=== PATIENT | male | born 1970 | race Caucasian/White ===

== ENCOUNTER → 2016-12-23 | Outpatient (CLI) | payer MEDICARE, MEDICAID ==
--- NOTE | 2016-12-23 19:07 | Diagnostic Imaging Report ---
PA view of the chest. INDICATION: Preoperative evaluation for dental surgery. FINDINGS: The lungs demonstrate mild interstitial thickening. No prior studies are available to evaluate for chronicity. The heart size is borderline. There is no effusion or pneumothorax. The mediastinum and mary appear unremarkable. IMPRESSION: 1. Borderline cardiac size. 2. Mild interstitial prominence which could be chronic. No prior studies are available for comparison. In the appropriate clinical setting, mild atypical pneumonia or minimal vascular congestion could be considered. Dictated by: Dictated on workstation # [id number]
== END ==
LOC: CARD 12:20
PROVIDERS: ATTEND Dentist
DX: Z01.810 Encounter for preprocedural cardiovascular examination (principal); Z01.811 Encounter for preprocedural respiratory examination
CPT/HCPCS: 71010; 93005

== ENCOUNTER → 2017-04-08 | Outpatient (CLI) | payer MEDICARE, MEDICAID ==
[2017-04-08 12:45] LABS: BASOPHILS # (AUTO) 0.1 10^3/uL (0.0-0.1); BASOPHILS % (AUTO) 1 % (0-10); EOSINOPHILS # (AUTO) 0.7 10^3/uL (0.0-0.3); EOSINOPHILS % (AUTO) 9 % (0-10); LYMPHOCYTES # (AUTO) 1.5 X 10^3 (1.0-4.0); LYMPHOCYTES % (AUTO) 21 % (12-44); MEAN CORPUSCULAR HEMOGLOBIN 30 PG (25-34); MEAN CORPUSCULAR HGB CONC 34 G/DL (32-36); MEAN CORPUSCULAR VOLUME 89 FL (80-99); MEAN PLATELET VOLUME 9.5 FL (7.4-10.4); MONOCYTES # (AUTO) 0.7 X 10^3 (0.0-1.0); MONOCYTES % (AUTO) 10 % (0-12); NEUTROPHILS # (AUTO) 4.3 X 10^3 (1.8-7.8); NEUTROPHILS % (AUTO) 60 % (42-75); PLATELET COUNT 154 10^3/uL (130-400); RED BLOOD COUNT 4.69 10^6/uL (4.35-5.85); RED CELL DISTRIBUTION WIDTH 12.8 % (10.0-14.5); WHITE BLOOD COUNT 7.2 10^3/uL (4.3-11.0)
--- NOTE | 2017-04-08 14:33 | Diagnostic Imaging Report ---
PA and lateral views of the chest. INDICATION: COPD. Cough. Wheezing. FINDINGS: There is mild left basilar opacity adjacent to the cardiac apex, probably related to pericardial fat pad or minimal atelectasis. The right lung is clear. The heart size is normal. No effusion or pneumothorax. The mediastinum and mary appear unremarkable. IMPRESSION: Question of minimal left basilar atelectasis. Dictated by: Dictated on workstation # [id number]
== END ==
LOC: RAD 12:05
PROVIDERS: ATTEND Nurse Practitioner Family
DX: J44.9 Chronic obstructive pulmonary disease, unspecified (principal)
CPT/HCPCS: 36415; 71020; 85025

== ENCOUNTER → 2017-04-20 | Outpatient (CLI) | payer MEDICARE, MEDICAID ==
--- NOTE | 2017-04-20 19:37 | Diagnostic Imaging Report ---
PA and lateral views of the chest. INDICATION: Dyspnea. Cough. FINDINGS: The lungs are clear. The heart size is normal. No effusion or pneumothorax. Mediastinum and mary appear unremarkable. IMPRESSION: Unremarkable exam. Dictated by: Dictated on workstation # [id number]
== END ==
LOC: RAD 14:47
PROVIDERS: ATTEND Internal Medicine Critical Care Medicine
DX: R06.00 Dyspnea, unspecified (principal); R05 Cough
CPT/HCPCS: 71020

== ENCOUNTER 2017-05-28 10:14 | Emergency (ER) | payer MEDICARE, MEDICAID ==
[~2017-05-28] VITALS: Ht 157.5 cm; Wt 90.7 kg
[2017-05-28] MEDS ORDERED: RT-ALBUTEROL/IPRATROPIUM 3 ML (DUONEB) VIAL INH ONE (10:45)
--- NOTE | 2017-05-28 11:01 | Diagnostic Imaging Report ---
INDICATION: Cough and congestion COMPARISON: 04/20/2017 FINDINGS: Frontal and lateral views of the chest demonstrate normal heart size and pulmonary vascularity. The lungs are clear. There are no signs of infiltrate, pleural effusions or pneumothoraces. The visualized osseous structures show no acute abnormalities. IMPRESSION: 1. No acute process. No signs of infiltrates, effusions or pneumothoraces. Dictated by: Dictated on workstation # [id number]
--- NOTE | 2017-05-28 11:35 | ED Cough/URI ---
General Chief Complaint: Respiratory Problems Stated Complaint: SOA,COUGH Nursing Triage Note: PT CO OF SOA, PT SPECIAL NEEDS, PT HAS AUDIBLE WHEEZING NOTED [employer]IT[employer] POLISHER DENIES FEVER History of Present Illness Time seen by provider: 11:30 Initial Comments 46 year old male patient, SOA. No fevers reported. Timing/Duration: this morning Severity/Quality: mild, dry cough Prior Episodes/Possible Cause: occasional episodes Modifying Factors: Improves With Albuterol Inhaler, Improves With Albuterol Nebulizer, Improves With Rest Associated Symptoms: cough, shortness of breath Allergies and Home Medications Allergies Uncoded Allergies: TAPE (Allergy, Unknown, 05/18/16) Home Medications Azithromycin 250 Mg Tablet, 250 MG PO UD, #6 TAKE 2 TABLETS TODAY, THEN TAKE 1 TABLET DAILY FOR 4 MORE DAYS Prescribed by: ANGEL PRETTY on 05/28/17 1144 Constitutional: no symptoms reported, chills Respiratory: see HPI, cough, short of breath, wheezing All Other Systems Reviewed Negative Unless Noted: Yes Past Tnrgoco-Qzvree-Shfwhn Hx Patient Social History Alcohol Use: Denies Use Recreational Drug Use: No Smoking Status: Never a Smoker Recent Foreign Travel: No Contact w/Someone Who Travel: No Recent Infectious Disease Expo: No Recent Hopitalizations: No Physical Abuse: No Sexual Abuse: No Seasonal Allergies Seasonal Allergies: Yes Surgeries History of Surgeries: No Respiratory History of Respiratory Disorde: Yes Respiratory Disorders: Asthma Cardiovascular History of Cardiac Disorders: No Neurological History of Neurological Disord: Yes (EPILEPSY, NEUROLOGICAL IMPAIRMENT, OBSTRUCTIVE HYDROCEPHALUS) Neurological Disorders: Developmental Disorder, Seizure Disorder Gastrointestinal History of Gastrointestinal Di: No Musculoskeletal History of Musculoskeletal Dis: No Endocrine History of Endocrine Disorders: No Psychosocial History of Psychiatric Problem: Yes Behavioral Health Disorders: Anxiety Suicide Risk Score: 0 Reviewed Nursing Assessment Reviewed/Agree w Nursing PMH: Yes Physical Exam Vital Signs Vital Sign - Last 12Hours 05/28/17 05/28/17 10:25 11:00 Temp 98.2 Pulse 106 Resp 20 B/P (MAP) 129/86 (100) Pulse Ox 90 O2 Delivery Room Air Capillary Refill : Less Than 3 Seconds General Appearance: WD/WN, no apparent distress Eyes: Bilateral Eye Normal Inspection, Bilateral Eye PERRL, Bilateral Eye EOMI HEENT: PERRL/EOMI, normal ENT inspection, TMs normal, pharynx normal Neck: non-tender, full range of motion, supple, No lymphadenopathy (R), No lymphadenopathy (L) Respiratory: chest non-tender, normal breath sounds, wheezing Cardiovascular: normal peripheral pulses, regular rate, rhythm Gastrointestinal: normal bowel sounds, non tender, soft Neurologic/Psychiatric: no motor/sensory deficits, alert Skin: normal color, warm/dry Progress/Results/Core Measures Suspected Sepsis Recent Fever Within 48 Hours: No Infection Criteria Present: None New/Unexplained Altered Menta: No Sepsis Screen: No Definite Risk Sepsis Diagnosis: SIRS Temperature:98.2 Pulse: 106 Respiratory Rate: 20 Blood Pressure 129 /86 Mean: 100 Results/Orders Medications Given in ED Current Medications Medications Dose Ordered Sig/Flaquita Route Start Time Stop Time Status Last Admin Dose Admin Albuterol/ Ipratropium 3 ml ONCE ONCE INH 05/28/17 10:45 05/28/17 10:47 DC 05/28/17 10:59 3 ML Vital Signs/I&O Vital Sign - Last 12Hours 05/28/17 05/28/17 05/28/17 10:25 11:00 11:56 Temp 98.2 Pulse 106 93 Resp 20 18 B/P (MAP) 129/86 (100) Pulse Ox 90 94 94 O2 Delivery Room Air Capillary Refill : Less Than 3 Seconds Blood Pressure Mean: 100 Progress Note : Time: 11:30 Progress Note Patient reports less SOA after nebulized breathing treatment. Discharge planning reviewed with the patient and his roustabout hand, reviewed return precautions. Diagnostic Imaging Diagonstic Imaging: Xray Plain Films/CT/US/NM/MRI: chest Comments NAME: [facility] REC#: [id number] PT STATUS: REG ER : 1970 PHYSICIAN: FARNAZ PENA MD ADMIT DATE: 05/28/17/ER Draft Date of Exam:05/28/17 CHEST PA/LAT (2 VIEW) INDICATION: Cough and congestion COMPARISON: 04/20/2017 FINDINGS: Frontal and lateral views of the chest demonstrate normal heart size and pulmonary vascularity. The lungs are clear. There are no signs of infiltrate, pleural effusions or pneumothoraces. The visualized osseous structures show no acute abnormalities. IMPRESSION: 1. No acute process. No signs of infiltrates, effusions or pneumothoraces. Dictated on workstation # [id number] Dict: 05/28/17 1058 Trans: 05/28/[address] [place] [phone] Interpreted by: PASTORA RAHMAN MD Electronically signed by: Reviewed: Reviewed by Me Departure Impression Impression: Primary Impression: Asthma Qualified Codes: J45.998 - Other asthma Additional Impression: Upper respiratory infection with cough and congestion Disposition: 01 HOME, SELF-CARE Condition: Stable Departure-Patient Inst. Decision time for Depature: 11:40 Referrals: NICOLETTE NAPIER MD (PCP) Primary Care Physician ADAMA MAI (Family) Primary Care Physician Patient Instructions: Acute Bronchitis, Adult (DC), Asthma, Adult (DC), Cough, Adult (DC) Add. Discharge Instructions: Increase water intake. Continue taking prednisone per Dr. Kincaid and using your scheduled home medications. Use the nebulized albuterol every 4-6 hours. Take antibiotic as prescribed. Return to emergency department for fever greater than 101, increased difficulty breathing, new problems or concerns. All discharge instructions reviewed with patient and/or family. Voiced understanding. Scripts Azithromycin (Zithromax) 250 Mg Tablet 250 MG PO UD, #6 TAB TAKE 2 TABLETS TODAY, THEN TAKE 1 TABLET DAILY FOR 4 MORE DAYS Prov: ANGEL PRETTY 05/28/17 Copy Copies To 1: MICHAEL KINCAID DO; EMELI CONRAD MD, AMY ARNP May 28, 2017 11:35
[2017-05-28] MEDS ORDERED: AZIT250T PO (11:44)
[2017-05-28 11:56] VITALS: BP 136/92
== END 2017-05-28 11:55 | disposition home or self-care (01) ==
LOC: EDUNIT# 10:14 → ER 10:15
DX: J45.909 Unspecified asthma, uncomplicated (principal); J06.9 Acute upper respiratory infection, unspecified; G40.909 Epilepsy, unspecified, not intractable, without status epilepticus; F41.9 Anxiety disorder, unspecified
CPT/HCPCS: 71020; 94640; 99282

== ENCOUNTER → 2017-06-08 | Outpatient (CLI) | payer MEDICARE, MEDICAID ==
[~2017-06-08] MED LIST: AZIT250T PO
--- NOTE | 2017-06-08 15:32 | Diagnostic Imaging Report ---
INDICATION: DYSPNEA AND RESPIRATORY ABNORMALITIES, COUGH, ASTHMA. COMPARISON: 05/28/2017. FINDINGS: Frontal and lateral views of the chest demonstrate normal heart size and pulmonary vascularity. The lungs are clear. There are no signs of infiltrate, pleural effusions or pneumothoraces. The visualized osseous structures show no acute abnormalities. IMPRESSION: 1. No acute process. No signs of infiltrates, effusions or pneumothoraces. Dictated by: Dictated on workstation # [id number]
== END ==
LOC: RAD 14:34
PROVIDERS: ATTEND Nurse Practitioner Family
DX: J45.909 Unspecified asthma, uncomplicated (principal)
CPT/HCPCS: 71046

== ENCOUNTER 2017-09-15 21:03 | Emergency (ER) | payer MEDICARE, MEDICAID ==
[~2017-09-15] VITALS: Ht 152.4 cm; Wt 81.6 kg
[2017-09-15] MEDS ORDERED: PROMETHAZINE/ CODEINE SYRUP 5 ML UDC PO ONE (21:45)
[2017-09-15] MEDS ORDERED: RT-ALBUTEROL/IPRATROPIUM 3 ML (DUONEB) VIAL INH ONE (21:45)
--- NOTE | 2017-09-15 21:47 | ED Cough/URI ---
General Stated Complaint: COUGH;CHOKED ON FOOD Source: caregiver Exam Limitations: no limitations History of Present Illness Date Seen by Provider: Sep 15, 2017 Time Seen by Provider: 21:46 Initial Comments This mentally handicapped gentleman presents To ER by his caregiver with reports of a cough that became worse after eating this evening. Seems to have choked on some of his food. He's been wheezing since then and caregiver did give him a DuoNeb treatment. Timing/Duration: constant Severity/Quality: dry cough Associated Symptoms: cough, wheezing Allergies and Home Medications Allergies Uncoded Allergies: TAPE (Allergy, Unknown, 05/18/16) Home Medications Azithromycin 250 Mg Tablet, 250 MG PO UD TAKE 2 TABLETS TODAY, THEN TAKE 1 TABLET DAILY FOR 4 MORE DAYS Prescribed by: ANGEL PRETTY on 05/28/17 1144 Clindamycin HCl 300 Mg Capsule, 300 MG PO TID Prescribed by: MITCH STEVENS on 09/15/172208 Prednisone 20 Mg Tab, 40 MG PO DAILY Prescribed by: MITCH STEVENS on 09/15/172208 Patient Home Medication List Home Medication List Reviewed: Yes Review of Systems Constitutional: see HPI EENTM: see HPI Respiratory: see HPI, cough, short of breath, wheezing Cardiovascular: no symptoms reported Genitourinary: no symptoms reported Musculoskeletal: no symptoms reported Skin: no symptoms reported Psychiatric/Neurological: No Symptoms Reported Past Dfagmmx-Jgxkuv-Veltpq Hx Patient Social History Recent Foreign Travel: No Contact w/Someone Who Travel: No Recent Hopitalizations: No Seasonal Allergies Seasonal Allergies: Yes Past Medical History Surgeries: No Respiratory: Yes Asthma Cardiac: No Neurological: Yes (EPILEPSY, NEUROLOGICAL IMPAIRMENT, OBSTRUCTIVE HYDROCEPHALUS ) Developmental Disorder, Seizure Disorder Gastrointestinal: No Musculoskeletal: No Endocrine: No Psychosocial: Yes Anxiety Physical Exam Vital Signs Vital Signs - First Documented 09/15/17 22:05 Pulse Ox 94 O2 Delivery Room Air Capillary Refill : General Appearance: WD/WN, no apparent distress Eyes: Bilateral Eye Normal Inspection, Bilateral Eye PERRL, Bilateral Eye EOMI HEENT: PERRL/EOMI, normal ENT inspection Neck: non-tender, full range of motion Respiratory: no respiratory distress, no accessory muscle use, decreased breath sounds, wheezing, other (persistent cough noted) Cardiovascular: no murmur, tachycardia Neurologic/Psychiatric: alert, normal mood/affect, oriented x 3, other (oxygen saturation 93% on room air.) Skin: normal color, warm/dry Progress/Results/Core Measures Suspected Sepsis SIRS Temperature: Pulse: Respiratory Rate: Laboratory Tests 09/15/17 21:49: White Blood Count 9.0 Blood Pressure / Mean: Laboratory Tests 09/15/17 21:49: Platelet Count 183 Results/Orders Lab Results Laboratory Tests Test 09/15/17 21:49 Range/Units White Blood Count 9.0 4.3-11.0 10^3/uL Red Blood Count 5.02 4.35-5.85 10^6/uL Hemoglobin 15.3 13.3-17.7 G/DL Hematocrit 45 40-54 % Mean Corpuscular Volume 89 80-99 FL Mean Corpuscular Hemoglobin 31 25-34 PG Mean Corpuscular Hemoglobin Concent 34 32-36 G/DL Red Cell Distribution Width 13.3 10.0-14.5 % Platelet Count 183 130-400 10^3/uL Mean Platelet Volume 9.5 7.4-10.4 FL Neutrophils (%) (Auto) 85 H 42-75 % Lymphocytes (%) (Auto) 9 L 12-44 % Monocytes (%) (Auto) 6 0-12 % Eosinophils (%) (Auto) 0 0-10 % Basophils (%) (Auto) 0 0-10 % Neutrophils # (Auto) 7.6 1.8-7.8 X 10^3 Lymphocytes # (Auto) 0.8 L 1.0-4.0 X 10^3 Monocytes # (Auto) 0.6 0.0-1.0 X 10^3 Eosinophils # (Auto) 0.0 0.0-0.3 10^3/uL Basophils # (Auto) 0.0 0.0-0.1 10^3/uL My Orders Orders - MITCH STEVENS APRN Chest Pa/Lat (2 View) (09/15/17 21:45) Cbc With Automated Diff (09/15/17 21:45) Albuterol/Ipra Inhalation Soln (Duoneb I (09/15/17 21:45) Svn Sm Volume Nebulizer Rt-Rfs (09/15/17 21:45) Promethazine/ Codeine Syrup (Phenergan W (09/15/17 21:45) Saline Lock/Iv-Start (09/15/17 21:45) Clindamycin 900 Mg/50 Ml Ivpb (Cleocin P (09/15/17 22:15) Methylprednisolone Sod Succ (Solu-Medrol (09/15/17 22:30) Medications Given in ED Current Medications Medications Dose Ordered Sig/Flaquita Route Start Time Stop Time Status Last Admin Dose Admin Albuterol/ Ipratropium 3 ml ONCE ONCE INH 09/15/17 21:45 09/15/17 21:46 DC 09/15/17 22:03 3 ML Clindamycin Phosphate/Dextrose 50 ml @ 100 mls/hr ONCE ONCE IV 09/15/17 22:15 09/15/17 22:44 09/15/17 22:18 100 MLS/HR Promethazine HCl/ Codeine 5 ml ONCE ONCE PO 09/15/17 21:45 09/15/17 21:46 DC 09/15/17 22:18 5 ML Vital Signs/I&O 09/15/17 22:05 Pulse Ox 94 O2 Delivery Room Air Capillary Refill : Departure Impression Primary Impression: Aspiration into airway Additional Impression: Reactive airway disease Disposition: HOME, SELF-CARE Condition: Stable Departure-Patient Inst. Decision time for Depature: 22:06 Referrals: NICOLETTE NAPIER MD (PCP) Primary Care Physician ADAMA MAI (Family) Primary Care Physician Patient Instructions: NO INSTRUCTIONS GIVEN Add. Discharge Instructions: 1. Antibiotics as directed 2. Return to ER for worsening symptoms 3. Continue to use breathing treatments every 4 hours for the next 24 hours 4. Follow up with his doctor within 48 hours for recheck Scripts Prednisone (Prednisone) 20 Mg Tab 40 MG PO DAILY, #4 TAB Prov: MITCH STEVENS DAMPPROOFER 09/15/17 Clindamycin HCl (Clindamycin HCl) 300 Mg Capsule 300 MG PO TID, #9 CAP Prov: MITCH STEVENS DAMPPROOFER 09/15/17 MITCH STEVENS DAMPPROOFER Sep 15, 2017 21:47
[2017-09-15 21:56] LABS: BASOPHILS % (AUTO) 0 % (0-10); EOSINOPHILS % (AUTO) 0 % (0-10); HEMATOCRIT 45 % (40-54); HEMOGLOBIN 15.3 G/DL (13.3-17.7); LYMPHOCYTES # (AUTO) 0.8 X 10^3 (1.0-4.0); LYMPHOCYTES % (AUTO) 9 % (12-44); MEAN CORPUSCULAR HEMOGLOBIN 31 PG (25-34); MEAN CORPUSCULAR HGB CONC 34 G/DL (32-36); MEAN CORPUSCULAR VOLUME 89 FL (80-99); MEAN PLATELET VOLUME 9.5 FL (7.4-10.4); MONOCYTES # (AUTO) 0.6 X 10^3 (0.0-1.0); MONOCYTES % (AUTO) 6 % (0-12); NEUTROPHILS # (AUTO) 7.6 X 10^3 (1.8-7.8); NEUTROPHILS % (AUTO) 85 % (42-75); PLATELET COUNT 183 10^3/uL (130-400); RED BLOOD COUNT 5.02 10^6/uL (4.35-5.85); RED CELL DISTRIBUTION WIDTH 13.3 % (10.0-14.5)
[2017-09-15] MEDS ORDERED: PRD20T PO (22:09)
[2017-09-15] MEDS ORDERED: CLIN300C11 PO (22:09)
[2017-09-15] MEDS ORDERED: CLINDAMYCIN 900 MG/50 ML IVPB 50 ML IV ONE (22:15)
[2017-09-15] MEDS ORDERED: methylPREDNISolone 125 MG (Solu-MEDROL) VIAL IVP ONE (22:30)
[2017-09-15 22:53] VITALS: BP 138/91
--- NOTE | 2017-09-16 05:42 | Diagnostic Imaging Report ---
EXAM: CHEST PA/LAT (2 VIEW) INDICATION: Cough. Chest congestion. COMPARISON: Chest radiograph 06/08/2017. FINDINGS: Normal heart size and pulmonary vascularity. No focal pulmonary opacity, pleural effusion or pneumothorax. No acute osseous findings. No significant change. IMPRESSION: No acute cardiopulmonary findings. Dictated by: Dictated on workstation # [id number]
--- OUTSIDE RECORDS SUMMARY | 2017-09-16 12:16 | XMS REPORT | Clinical Summary ---
Author Author [facility] Organization [facility] Address Unknown Phone Unavailable Care Team Providers Care Cassandra Consultant Name Role Phone PCP Unavailable Source Comments Some departments are not documenting in the electronic medical record. If you do not see the information that you expected, contact Release of Information in the Health Information Management department at [phone] for further assistance in locating additional records.[facility] Allergies Active Allergy Reactions Severity Noted Date Comments Adhesive RASH Medium 08/13/2016 Current Medications Prescription Sig. Disp. Refills Start End Date Status Date ALBUTEROL IN Inhale by mouth into the Active lungs. DIPHENHYDRAMINE HCL Take by mouth. Active (BENADRYL ALLERGY PO) montelukast (SINGULAIR) 5 Chew 5 mg by mouth at Active mg chew tablet bedtime daily. phenytoin (DILANTIN) 125 Take 300 mg by mouth Active mg/5 mL oral suspension three times daily. potassium chloride SR Take 20 mEq by mouth Active (K-DUR) 20 mEq tablet daily. Take with a meal and a full glass of water. PREDNISOLONE PO Take by mouth. Active BUDESONIDE/FORMOTEROL Inhale by mouth into the Active FUMARATE (SYMBICORT IN) lungs. Tolnaftate 1 % spra Apply topically to Active affected area. ERGOCALCIFEROL (VITAMIN Take by mouth. Active D2) (VITAMIN D PO) Active Problems Problem Noted Date Nuclear sclerotic cataract of both eyes 08/13/2016 Last Assessment & Plan: Diminished red reflex on direct ophthalmoscopy. Examination limited by patient cooperation but care givers report good functionality, ambulation, eating, watching TV. Defer further evaluation pending functional impairment as observed by care givers. Then will require sedation for examination. 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
== END 2017-09-15 22:52 | disposition home or self-care (01) ==
LOC: EDUNIT# 21:03 → ER 21:04
DX: T17.820A Food in other parts of respiratory tract causing asphyxiation, initial encounter (principal); J45.909 Unspecified asthma, uncomplicated; R29.818 Other symptoms and signs involving the nervous system; G40.909 Epilepsy, unspecified, not intractable, without status epilepticus; F41.9 Anxiety disorder, unspecified; F89 Unspecified disorder of psychological development; Z91.048 Other nonmedicinal substance allergy status
CPT/HCPCS: 36415; 71046; 85025; 94640

== ENCOUNTER 2018-05-05 13:52 | Inpatient (IN) | payer MEDICARE, MEDICAID ==
[~2018-05-05] VITALS: Ht 154.9 cm; Wt 90.7 kg
[2018-05-05] VITALS (10 sets, daily range): BP systolic 72–111; BP diastolic 49–71
[~2018-05-05 13:52] MED LIST changes: +CLIN300C11 PO; +PRD20T PO
[2018-05-05] MEDS ORDERED: RT-ALBUTEROL/IPRATROPIUM 3 ML (DUONEB) VIAL INH ONE (14:15)
[2018-05-05] MEDS ORDERED: NS IV 1000 ML 1,000 ML IV SCH (14:15)
--- NOTE | 2018-05-05 14:16 | ED Cough/URI ---
General Stated Complaint: COUGH;WEAKNESS Source: patient Exam Limitations: no limitations History of Present Illness Date Seen by Provider: May 05, 2018 Time Seen by Provider: 14:15 Initial Comments To ER per private vehicle from [place] with reports of worsening cough for the past week. Primary care is Dr. Napier out of for Dmitri. Patient does have a fever today. Timing/Duration: week, getting worse Severity/Quality: productive cough Associated Symptoms: cough, fever/chills, shortness of breath Allergies and Home Medications Allergies Uncoded Allergies: TAPE (Allergy, Unknown, 05/18/16) Home Medications Azithromycin 250 Mg Tablet, 250 MG PO UD TAKE 2 TABLETS TODAY, THEN TAKE 1 TABLET DAILY FOR 4 MORE DAYS Prescribed by: ANGEL PRETTY on 05/28/17 1144 Clindamycin HCl 300 Mg Capsule, 300 MG PO TID Prescribed by: MITCH STEVENS on 09/15/172208 Prednisone 20 Mg Tab, 40 MG PO DAILY Prescribed by: MICTH STEVENS on 09/15/172208 Patient Home Medication List Home Medication List Reviewed: Yes Review of Systems Review of Systems Constitutional: see HPI, chills, fever EENTM: see HPI Respiratory: see HPI, cough Cardiovascular: no symptoms reported Genitourinary: no symptoms reported Musculoskeletal: no symptoms reported Skin: no symptoms reported Psychiatric/Neurological: No Symptoms Reported Past Xlboxji-Ebnpat-Trnzor Hx Patient Social History Recent Hopitalizations: No Seasonal Allergies Seasonal Allergies: Yes Past Medical History Surgeries: No Respiratory: Yes Asthma Cardiac: No Neurological: Yes (EPILEPSY, NEUROLOGICAL IMPAIRMENT, OBSTRUCTIVE HYDROCEPHALUS ) Developmental Disorder, Seizure Disorder Gastrointestinal: No Musculoskeletal: No Endocrine: No Psychosocial: Yes Anxiety Physical Exam Vital Signs - First Documented 05/05/18 05/05/18 14:07 14:27 Temp 103.0 Pulse 123 Resp 24 B/P (MAP) 124/71 (88) Pulse Ox 86 O2 Delivery Room Air O2 Flow Rate 3.50 Capillary Refill : Height: 5'2.00" Weight: 180lbs. oz. 81.333141kt; BMI Method:Estimated General Appearance: WD/WN, mild distress, other (on arrival, coughing persistently, wheezing, oxygen saturation 86% on room air.) Eyes: Bilateral Eye Normal Inspection, Bilateral Eye PERRL, Bilateral Eye EOMI HEENT: PERRL/EOMI, normal ENT inspection Respiratory: no respiratory distress, no accessory muscle use, decreased breath sounds, wheezing (But no vomiting right) Gastrointestinal: normal bowel sounds, non tender, soft Neurologic/Psychiatric: alert, normal mood/affect, oriented x 3 Skin: normal color, warm/dry Focused Exam Lactate Level 05/05/18 15:00: Lactic Acid Level 0.92 Lactic Acid Level Laboratory Tests Test 05/05/18 15:00 Lactic Acid Level 0.92 MMOL/L (0.50-2.00) Progress/Results/Core Measures Suspected Sepsis SIRS Temperature: Pulse: Respiratory Rate: Laboratory Tests 05/05/18 14:20: White Blood Count 12.7H Blood Pressure / Mean: 05/05/18 15:00: Lactic Acid Level 0.92 Laboratory Tests 05/05/18 14:20: Creatinine 0.81, Platelet Count 174, Total Bilirubin 0.3 Results/Orders Lab Results Laboratory Tests Test 05/05/18 14:20 05/05/18 15:00 Range/Units White Blood Count 12.7 H 4.3-11.0 10^3/uL Red Blood Count 4.70 4.35-5.85 10^6/uL Hemoglobin 14.1 13.3-17.7 G/DL Hematocrit 42 40-54 % Mean Corpuscular Volume 89 80-99 FL Mean Corpuscular Hemoglobin 30 25-34 PG Mean Corpuscular Hemoglobin Concent 34 32-36 G/DL Red Cell Distribution Width 13.1 10.0-14.5 % Platelet Count 174 130-400 10^3/uL Mean Platelet Volume 8.8 7.4-10.4 FL Neutrophils (%) (Auto) 92 H 42-75 % Lymphocytes (%) (Auto) 3 L 12-44 % Monocytes (%) (Auto) 4 0-12 % Eosinophils (%) (Auto) 1 0-10 % Basophils (%) (Auto) 0 0-10 % Neutrophils # (Auto) 11.7 H 1.8-7.8 X 10^3 Lymphocytes # (Auto) 0.3 L 1.0-4.0 X 10^3 Monocytes # (Auto) 0.6 0.0-1.0 X 10^3 Eosinophils # (Auto) 0.1 0.0-0.3 10^3/uL Basophils # (Auto) 0.0 0.0-0.1 10^3/uL Neutrophils % (Manual) 87 % Lymphocytes % (Manual) 5 % Monocytes % (Manual) 1 % Eosinophils % (Manual) 2 % Basophils % (Manual) 0 % Band Neutrophils 5 % Blood Morphology Comment NORMAL Sodium Level 138 135-145 MMOL/L Potassium Level 4.1 3.6-5.0 MMOL/L Chloride Level 102 98-107 MMOL/L Carbon Dioxide Level 25 21-32 MMOL/L Anion Gap 11 5-14 MMOL/L Blood Urea Nitrogen 15 7-18 MG/DL Creatinine 0.81 0.60-1.30 MG/DL Estimat Glomerular Filtration Rate > 60 BUN/Creatinine Ratio 19 Glucose Level 109 H 70-105 MG/DL Calcium Level 8.7 8.5-10.1 MG/DL Corrected Calcium 8.8 8.5-10.1 MG/DL Total Bilirubin 0.3 0.1-1.0 MG/DL Aspartate Amino Transf (AST/SGOT) 21 5-34 U/L Alanine Aminotransferase (ALT/SGPT) 32 0-55 U/L Alkaline Phosphatase 94 40-136 U/L Total Protein 7.2 6.4-8.2 GM/DL Albumin 3.9 3.2-4.5 GM/DL Lactic Acid Level 0.92 0.50-2.00 MMOL/L My Orders Orders - MICTH STEVENS [employer] PAPER MACHINE OPERATOR Cbc With Automated Diff (05/05/18 14:13) Comprehensive Metabolic Panel (05/05/18 14:13) Blood Culture (05/05/18 14:13) Lactic Acid Analyzer (05/05/18 14:13) Chest 1 View, Ap/Pa Only (05/05/18 14:13) Influenza A And B Antigens (05/05/18 14:13) Albuterol/Ipra Inhalation Soln (Duoneb I (05/05/18 14:15) Ns Iv 1000 Ml (Sodium Chloride 0.9%) (05/05/18 14:15) Svn Small Volume Nebulizer (05/05/18 14:13) Iv Heplock-Insert (Order) (05/05/18 14:13) Manual Differential (05/05/18 14:20) Lorazepam Injection (Ativan Injection) (05/05/18 14:41) Lorazepam Injection (Ativan Injection) (05/05/18 15:00) Acetaminophen Tablet (Tylenol Tablet) (05/05/18 15:45) Ibuprofen Tablet (Motrin Tablet) (05/05/18 15:45) Ibuprofen Suspension (Motrin Suspension) (05/05/18 16:00) Medications Given in ED Current Medications Medications Dose Ordered Sig/Flaquita Route Start Time Stop Time Status Last Admin Dose Admin Albuterol/ Ipratropium 3 ml ONCE ONCE INH 05/05/18 14:15 05/05/18 14:16 DC 05/05/18 14:27 3 ML Lorazepam 2 mg STK-MED ONCE .ROUTE 05/05/18 14:41 05/05/18 14:44 DC 05/05/18 14:47 0.5 MG Vital Signs/I&O 05/05/18 05/05/18 14:07 14:27 Temp 103.0 Pulse 123 Resp 24 B/P (MAP) 124/71 (88) Pulse Ox 86 94 O2 Delivery Room Air Nasal Cannula O2 Flow Rate 3.50 Capillary Refill : Diagnostic Imaging Diagonstic Imaging: Xray Plain Films/CT/US/NM/MRI: chest Comments NAME: BUSHRAYA Sebastian [facility] REC#: [id number] PT STATUS: REG ER : 1970 PHYSICIAN: MITCH STEVENS APRN ADMIT DATE: 05/05/18/ER Draft Date of Exam:05/05/18 CHEST 1 VIEW, AP/PA ONLY INDICATION: Fever, difficulty breathing. COMPARISON: 09/15/2017. FINDINGS: There is new prominence of the lung markings bilaterally greater left than right most notably at the left base and appearance is suspicious for developing pneumonia. No appreciable pleural fluid. No pneumothorax. Heart size and vascularity are within normal limits. IMPRESSION: Findings suggest developing bilateral pneumonia greater left. Dictated on workstation # [id number] Dict: 05/05/18 1529 Trans: 05/05/18 1538 [id number] Interpreted by: KIMBERLY CAPUTO Electronically signed by: Departure Communication (Admissions) Time/Spoke to Admitting Phy: 15:[address] Cabrera. We will admit, consult Dr. Kincaid. We'll place him in the stepdown unit, IV fluids and Zosyn. Impression Primary Impression: Pneumonia Qualified Codes: J18.9 - Pneumonia, unspecified organism Disposition: 09 ADMITTED INPATIENT Condition: Stable Admissions Decision to Admit Reason: Admit from ER (General) Decision to Admit/Date: May 05, 2018 Time/Decision to Admit Time: 14:16 Departure-Patient Inst. Referrals: NICOLETTE NAPIER MD (PCP) Primary Care Physician ADAMA MAI (Family) Primary Care Physician MITCH STEVENS APRN May 05, 2018 14:16
[2018-05-05 14:34] LABS: BASOPHILS % (AUTO) 0 % (0-10); EOSINOPHILS # (AUTO) 0.1 10^3/uL (0.0-0.3); EOSINOPHILS % (AUTO) 1 % (0-10); HEMATOCRIT 42 % (40-54); HEMOGLOBIN 14.1 G/DL (13.3-17.7); LYMPHOCYTES # (AUTO) 0.3 X 10^3 (1.0-4.0); LYMPHOCYTES % (AUTO) 3 % (12-44); MEAN CORPUSCULAR HEMOGLOBIN 30 PG (25-34); MEAN CORPUSCULAR HGB CONC 34 G/DL (32-36); MEAN CORPUSCULAR VOLUME 89 FL (80-99); MEAN PLATELET VOLUME 8.8 FL (7.4-10.4); MONOCYTES # (AUTO) 0.6 X 10^3 (0.0-1.0); MONOCYTES % (AUTO) 4 % (0-12); NEUTROPHILS # (AUTO) 11.7 X 10^3 (1.8-7.8); NEUTROPHILS % (AUTO) 92 % (42-75); PLATELET COUNT 174 10^3/uL (130-400); RED CELL DISTRIBUTION WIDTH 13.1 % (10.0-14.5); WHITE BLOOD COUNT 12.7 10^3/uL (4.3-11.0)
[2018-05-05] MEDS ORDERED: LORazepam INJ 2 MG/ML (ATIVAN) VIAL ONE (14:41)
[2018-05-05 14:55] LABS: BAND NEUTROPHILS 5 %; BASOPHILS % (MANUAL) 0 %; EOSINOPHILS % (MANUAL) 2 %; LYMPHOCYTES % (MANUAL) 5 %; MONOCYTES % (MANUAL) 1 %; NEUTROPHILS % (MANUAL) 87 %; RBC MORPH NORMAL
[2018-05-05 14:56] LABS: ALANINE AMINOTRANSFERASE 32 U/L (0-55); ALBUMIN 3.9 GM/DL (3.2-4.5); ALKALINE PHOSPHATASE 94 U/L (40-136); BILIRUBIN,TOTAL 0.3 MG/DL (0.1-1.0); BUN/CREATININE RATIO 19; CALCIUM 8.7 MG/DL (8.5-10.1); CARBON DIOXIDE 25 MMOL/L (21-32); CHLORIDE 102 MMOL/L (98-107); CREATININE SERUM 0.81 MG/DL (0.60-1.30); GFR ESTIMATED > 60; GLUCOSE 109 MG/DL (70-105); POTASSIUM 4.1 MMOL/L (3.6-5.0); SODIUM 138 MMOL/L (135-145); TOTAL PROTEIN 7.2 GM/DL (6.4-8.2)
[2018-05-05] MEDS ORDERED: LORazepam INJ 2 MG/ML (ATIVAN) VIAL IVP PRN (15:00)
--- NOTE | 2018-05-05 15:39 | Diagnostic Imaging Report ---
INDICATION: Fever, difficulty breathing. COMPARISON: 09/15/2017. FINDINGS: There is new prominence of the lung markings bilaterally greater left than right most notably at the left base and appearance is suspicious for developing pneumonia. No appreciable pleural fluid. No pneumothorax. Heart size and vascularity are within normal limits. IMPRESSION: Findings suggest developing bilateral pneumonia greater left. Dictated by: Dictated on workstation # [id number]
[2018-05-05] MEDS ORDERED: IBUPROFEN 800 MG (MOTRIN) TAB PO ONE (15:45)
[2018-05-05] MEDS ORDERED: ACETAMINOPHEN 500 MG TAB (TYLENOL) PO ONE (15:45)
[2018-05-05] MEDS ORDERED: PIPERACILLIN SODIUM/TAZOBACTAM 4.5 GM in NS (IVPB) 100 ML IV ONE (16:00)
[2018-05-05] MEDS ORDERED: IBUPROFEN SUSP 100MG/5ML (MOTRIN) UDC PO ONE (16:00)
[2018-05-05] MEDS ORDERED: CATHETER FLUSH 10 ML SYR IV PRN (17:00)
[2018-05-05] MEDS ORDERED: IBUPROFEN SUSP 100MG/5ML (MOTRIN) UDC PO PRN (17:00)
[2018-05-05] MEDS ORDERED: APAP 325 MG/10.15 ML LIQ (TYLENOL) UDC PO PRN (17:00)
[2018-05-05] MEDS: NS IV 1000 ML 1,000 ML IV SCH (17:27)
[2018-05-05] MEDS: methylPREDNISolone 125 MG (Solu-MEDROL) VIAL IV SCH (17:27)
[2018-05-05] MEDS ORDERED: FLU QUADRIvalent (5+ YOA) 2018-2019 (AFLURIA) 0.5 ML IM ONE (17:30)
[2018-05-05] MEDS ORDERED: RT-ALBUTEROL SULF 2.5 MG/3 ML PRE-MIX VIAL INH PRN (19:45)
[2018-05-05] MEDS ORDERED: PHENYTOIN ORAL SUSPENSION 125 MG/5 ML UDC ONE (23:24)
[2018-05-05] MEDS: PIPERACILLIN/TAZO 4.5 GM/NS 100 ML IV SCH ×2 (23:59)
[2018-05-05] MEDS: PHENYTOIN ORAL SUSPENSION 125 MG/5 ML UDC PO SCH (23:59)
[2018-05-06] VITALS (20 sets, daily range): BP systolic 79–120; BP diastolic 46–70
[2018-05-06] MEDS: NS IV 1000 ML 1,000 ML IV SCH ×5 (02:10→17:56)
[2018-05-06] MEDS: methylPREDNISolone 125 MG (Solu-MEDROL) VIAL IV SCH (02:10)
[2018-05-06] MEDS: RT-ALBUTEROL SULF 2.5 MG/3 ML PRE-MIX VIAL INH SCH ×4 (02:12→21:23)
[2018-05-06] MEDS: ARFORMOTEROL 15 MCG/2 ML (BROVANA) INH SOLUTIION IH SCH ×3 (02:12→21:36)
[2018-05-06] MEDS ORDERED: NS IV ONE (03:00)
[2018-05-06] MEDS ORDERED: LIDOCAINE UROJET 2% GEL 10 ML PKG ONE (03:06)
--- OUTSIDE RECORDS SUMMARY | 2018-05-06 03:23 | XMS REPORT | Clinical Summary ---
Author Author [facility] Organization [facility] Address Unknown Phone Unavailable Care Team Providers Care Surgery Attendant Name Role Phone PCP Unavailable Source Comments Some departments are not documenting in the electronic medical record. 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
--- OUTSIDE RECORDS SUMMARY | 2018-05-06 03:23 | XMS REPORT | Clinical Summary ---
Author Author [facility] Organization [facility] Address Unknown Phone Unavailable Care Team Providers Care Senior Engineering Manager Name Role Phone PCP Unavailable Source Comments Some departments are not documenting in the electronic medical record. 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
[2018-05-06 03:29] LABS: BASOPHILS % (AUTO) 0 % (0-10); EOSINOPHILS % (AUTO) 0 % (0-10); HEMATOCRIT 36 % (40-54); HEMOGLOBIN 12.4 G/DL (13.3-17.7); LYMPHOCYTES # (AUTO) 1.2 X 10^3 (1.0-4.0); LYMPHOCYTES % (AUTO) 6 % (12-44); MEAN CORPUSCULAR HEMOGLOBIN 31 PG (25-34); MEAN CORPUSCULAR HGB CONC 35 G/DL (32-36); MEAN CORPUSCULAR VOLUME 90 FL (80-99); MEAN PLATELET VOLUME 8.9 FL (7.4-10.4); MONOCYTES # (AUTO) 1.1 X 10^3 (0.0-1.0); MONOCYTES % (AUTO) 6 % (0-12); NEUTROPHILS % (AUTO) 88 % (42-75); PLATELET COUNT 169 10^3/uL (130-400); RED BLOOD COUNT 3.98 10^6/uL (4.35-5.85); RED CELL DISTRIBUTION WIDTH 13.1 % (10.0-14.5); WHITE BLOOD COUNT 19.3 10^3/uL (4.3-11.0)
[2018-05-06 03:47] LABS: BUN/CREATININE RATIO 19; CALCIUM 7.9 MG/DL (8.5-10.1); CARBON DIOXIDE 26 MMOL/L (21-32); CHLORIDE 105 MMOL/L (98-107); GFR ESTIMATED > 60; GLUCOSE 117 MG/DL (70-105); MAGNESIUM 1.9 MG/DL (1.8-2.4); PHOSPHORUS 3.9 MG/DL (2.3-4.7); SODIUM 140 MMOL/L (135-145)
[2018-05-06] MEDS ORDERED: morphine INJ 4 MG/ML 1 ML (VIAL/SYRINGE) IVP PRN (06:30)
[2018-05-06] MEDS ORDERED: MIDAZOLAM 2 MG/2 ML (VERSED) VIAL IM NR ×2 (06:30→06:35)
[2018-05-06] MEDS ORDERED: MIDAZOLAM 2 MG/2 ML (VERSED) VIAL ONE (06:30)
[2018-05-06] MEDS ORDERED: HALOPERIDOL 5 MG/ML (HALDOL) AMP IV PRN (06:30)
--- NOTE | 2018-05-06 06:43 | Pulmonary Consultation ---
History of Present Illness History of Present Illness Date of Consultation 05/06/18 06:36 Time Seen by Provider: 06:36 Date of Admission History of Present Illness 47yo with hx of MR, severe KURTIS from ECF presents secondary to fever and chest congestion. He was diagnosed with pneumonia in the ED and admitted to ICU. This AM pt pulled out IV and has been pulling on Bailey cath. He has not recently been in hospital. No complications noted. can't obtain accurate ROS from pt. He has been running a fever. Denies pain. I know pt very well from out patient clinic. I am consulted for pulmonary/ICU management. Allergies and Home Medications Allergies Uncoded Allergies: TAPE (Allergy, Unknown, 05/18/16) Home Medications Azithromycin 250 Mg Tablet, 250 MG PO UD TAKE 2 TABLETS TODAY, THEN TAKE 1 TABLET DAILY FOR 4 MORE DAYS Prescribed by: ANGEL PRETTY on 05/28/17 1144 Clindamycin HCl 300 Mg Capsule, 300 MG PO TID Prescribed by: MITCH STEVENS on 09/15/172208 Prednisone 20 Mg Tab, 40 MG PO DAILY Prescribed by: MITCH STEVENS on 09/15/172208 Past Rzlakpa-Elcpui-Eamvpp Hx Patient Social History Alcohol Use: Denies Use Recreational Drug Use: No Smoking Status: Never a Smoker Recent Foreign Travel: No Contact w/Someone Who Travel: No Recent Infectious Disease Expo: No Recent Hopitalizations: No Physical Abuse: No Sexual Abuse: No Mistreated: No Fear: No Immunizations Up To Date Tetanus Booster (TDap): Unknown PED Vaccines UTD: No Date of Pneumonia Vaccine: Sep 15, 2014 Date of Influenza Vaccine: Mar 02, 2017 Seasonal Allergies Seasonal Allergies: Yes Past Medical History Surgeries: No Respiratory: Yes Asthma Cardiac: No Neurological: Yes (EPILEPSY, NEUROLOGICAL IMPAIRMENT, OBSTRUCTIVE HYDROCEPHALUS ) Developmental Disorder, Seizure Disorder Gastrointestinal: No Musculoskeletal: No Endocrine: No Psychosocial: Yes Anxiety Review of Systems Time Seen by Provider: 06:44 Sepsis Event Evaluation Height, Weight, BMI Height: 5'1.00" Weight: 185lbs. 9.0oz. 84.589690sh; 35.1 BMI Method:Stated Exam Exam Vital Signs Date Time Temp Pulse Resp B/P (MAP) Pulse Ox O2 Delivery O2 Flow Rate FiO2 05/06/18 06:00 73 20 120/70 (87) 93 Nasal Cannula 2.00 05/06/18 05:00 69 34 95/65 (75) 95 Nasal Cannula 2.00 05/06/18 04:00 61 11 92/62 (72) 97 Nasal Cannula 2.00 05/06/18 03:00 64 24 84/60 (68) 92 Nasal Cannula 2.00 05/06/18 02:19 91 Nasal Cannula 3.50 05/06/18 02:00 70 25 81/51 (61) 90 Nasal Cannula 2.00 05/06/18 01:00 67 21 79/47 (58) 96 Nasal Cannula 2.00 05/06/18 01:00 68 05/06/18 00:00 69 16 107/54 (71) 99 Nasal Cannula 2.00 05/06/18 00:00 98.2 69 22 107/54 (71) 95 Nasal Cannula 2.00 05/06/18 00:00 Nasal Cannula 2.00 05/05/18 23:00 79 43 87/56 (66) 95 Nasal Cannula 2.00 05/05/18 22:00 71 23 98/62 (74) 95 Nasal Cannula 2.00 05/05/18 21:00 Nasal Cannula 05/05/18 21:00 82 48 111/64 (80) 94 Nasal Cannula 2.00 05/05/18 20:00 98 48 75/50 (58) 94 Nasal Cannula 2.00 05/05/18 20:00 98.5 05/05/18 20:00 Nasal Cannula 2.00 05/05/18 19:32 97 86 21 05/05/18 19:00 87 18 77/49 (58) 94 Nasal Cannula 2.00 05/05/18 19:00 89 05/05/18 18:00 97 72/54 (60) 94 Nasal Cannula 2.00 05/05/18 17:45 96 89/61 (70) 94 Nasal Cannula 2.00 05/05/18 17:30 98 99/58 (72) 93 Nasal Cannula 2.00 05/05/18 17:15 102 22 93 Nasal Cannula 2.00 05/05/18 17:13 Nasal Cannula 2.00 05/05/18 17:01 102 05/05/18 17:00 106 27 102/71 (81) 92 Nasal Cannula 2.00 05/05/18 16:59 99.4 Nasal Cannula 2.00 05/05/18 16:36 101.2 108 19 105/65 (78) 99 Nasal Cannula 2.00 05/05/18 14:27 94 Nasal Cannula 3.50 05/05/18 14:07 103.0 123 24 124/71 (88) 86 Room Air I & O 05/06/18 07:00 Intake Total 1000 ml Balance 1000 ml Height & Weight Height: 5'1.00" Weight: 185lbs. 9.0oz. 84.364543sr; 35.1 BMI Method:Stated General Appearance: No Apparent Distress, Anxious HEENT: PERRL/EOMI, Pharynx Normal Neck: Full Range of Motion, Non Tender, Supple Respiratory: Chest Non Tender, No Accessory Muscle Use, No Respiratory Distress , Decreased Breath Sounds Cardiovascular: Regular Rate, Rhythm Capillary Refill: Less Than 3 Seconds Gastrointestinal: normal bowel sounds, non tender, soft Extremity: Normal Capillary Refill, Normal Inspection Neurologic/Psychiatric: Alert Skin: Normal Color, Warm/Dry Results Lab Laboratory Tests 05/05/18 14:20 05/06/18 03:17 Assessment/Plan Assessment/Plan Pneumonia with sepsis (not severe sepsis) -Continue current Zosyn -Novoa cultures pending HX of MR and pt pulled out IV -Will give him 4mg of Versed X1 then get 2 IVs -Will start Risperdal PO BID (not sure if he will take POs) -Precedex IV for now -Haldol and morphine PRN Hx of severe KURTIS (noncompliant with CPAP therapy) and morbid obesity MICHAEL VALVERDE DO May 06, 2018 06:43
--- NOTE | 2018-05-06 07:44 | Diagnostic Imaging Report ---
INDICATION: Shortness of air, ICU care management. TECHNIQUE: Single view chest 03:23 a.m. CORRELATION STUDY: 05/05/2018. FINDINGS: Increasing infiltrate like density about the left mid lower lung field from prior study. Right lung relatively stable. Heart size, mediastinum, and vasculature unchanged. IMPRESSION: 1. Increasing infiltrate suggested about the left mid lower lung field most compatible with pneumonia. Followup imaging recommended. Dictated by: Dictated on workstation # [id number]
[2018-05-06] MEDS: PIPERACILLIN/TAZO 4.5 GM/NS 100 ML IV SCH ×6 (08:32→21:41)
[2018-05-06] MEDS: PHENYTOIN ORAL SUSPENSION 125 MG/5 ML UDC PO SCH ×3 (08:33→21:40)
[2018-05-06] MEDS: risperiDONE 1 MG (RisperDAL) TAB PO SCH ×2 (09:03→21:40)
[2018-05-06] MEDS ORDERED: RT-ALBUTEROL SULF 2.5 MG/3 ML PRE-MIX VIAL INH PRN (09:15)
[2018-05-06] MEDS ORDERED: POTA20TA15 PO (09:33)
[2018-05-06] MEDS ORDERED: ERGO50006 PO (09:33)
[2018-05-06] MEDS ORDERED: PRED5TAB PO (09:33)
[2018-05-06] MEDS ORDERED: [UNRECOGNIZED DRUG - CODE] PO (09:33)
[2018-05-06] MEDS ORDERED: PHEN125O3 PO (09:33)
[2018-05-06] MEDS ORDERED: NYST15PO4 TOP (09:33)
[2018-05-06] MEDS ORDERED: MONT5TAB16 PO (09:33)
[2018-05-06] MEDS ORDERED: CETI-265 PO (09:33)
[2018-05-06] MEDS ORDERED: ARFO15VI3 NEB (09:39)
[2018-05-06] MEDS ORDERED: BUDE0.5A NEB (09:39)
[2018-05-06] MEDS ORDERED: ALBU2.5V4 NEB (09:39)
[2018-05-06] MEDS ORDERED: FLUT16SP22 NS (09:46)
[2018-05-06] MEDS ORDERED: MAG-86 PO (09:57)
[2018-05-06] MEDS ORDERED: DIPH-124 PO (09:57)
[2018-05-06] MEDS ORDERED: IBUP100O28 PO (09:57)
[2018-05-06] MEDS ORDERED: LORA2ORA PO (09:57)
[2018-05-06] MEDS ORDERED: NYST15CR TP (09:57)
[2018-05-06] MEDS ORDERED: [UNRECOGNIZED DRUG - CODE] TP (09:57)
[2018-05-06] MEDS ORDERED: GUAI5SYR PO (09:57)
[2018-05-06] MEDS ORDERED: NPB.9O TP (09:57)
[2018-05-06] MEDS ORDERED: RT-ALBUINH IH (09:57)
[2018-05-06] MEDS ORDERED: HYDR28OI2 TP (09:57)
[2018-05-06] MEDS ORDERED: DIPH28.33 TP (09:57)
[2018-05-06] MEDS ORDERED: SODI3VIA NEB (09:58)
[2018-05-06] MEDS: RT-BUDESONIDE NEBS 0.5 MG/2ML (PULMICORT) AMP INH SCH ×2 (10:00→21:23)
[2018-05-06] MEDS: methylPREDNISolone 40 MG/ML (Solu-MEDROL) VIAL IV SCH ×2 (10:09→17:56)
[2018-05-06] MEDS: DEXMEDETOMIDINE INJECTION 200 MCG in NS (IVPB) 50 ML IV SCH ×2 (10:28→18:21)
--- NOTE | 2018-05-06 12:00 | History & Physical-Hospitalist ---
History of Present Illness HPI/Chief Complaint CC: Sepsis with pneumonia HPI: This is a 47-year-old white male mentally retarded individual who resides in a snf who presented with fever and oxygen saturation of 86 percent. He was found to have pneumonia and elevated lactic acid consistent with sepsis. He was placed on IV fluids and monitored and cardiac stepdown status but began having low blood pressures through the later evening requiring severe sepsis classification and subsequent large volume fluid resuscitation but upon further evaluation he is on chronic steroids so likely a component of adrenal insufficiency is a factor also in the hypotension so will start with hydrocortisone 50 MG IV every 8 hours. Currently he is doing much better has not required any type of respiratory support other than oxygen and nebulizer treatments. He refuses to allow me to examine him so he was given Precedex when the ICU nurses need to provide him with treatment or cares. Source: patient Exam Limitations: no limitations Date Seen 05/06/18 Time Seen by a Provider: 11:00 Attending Physician Daly Cabrera Pankaj K MD Referring Physician Date of Admission May 05, 2018 at 16:05 Home Medications & Allergies Home Medications Reviewed patient Home Medication Reconciliation performed by pharmacy medication reconciliations infrastructure technician and/or nursing. Patients Allergies have been reviewed. Allergies Allergies Uncoded Allergies TAPE ( Allergy, Unknown, 05/18/16) Past Uenzfer-Qbxuwa-Ogmnbu Hx Past Med/Social Hx: Reviewed Nursing Past Med/Soc Hx, Reviewed and Corrections made Patient Social History Marrital Status: single Employed/Student: unemployed Alcohol Use: Denies Use Recreational Drug Use: No Smoking Status: Never a Smoker Physical Abuse Screen: No Sexual Abuse: No Recent Foreign Travel: No Contact w/other who traveled: No Recent Hopitalizations: No Recent Infectious Disease Expo: No Immunizations Up To Date Tetanus Booster (TDap): Unknown Pediatric: No Date of Pneumonia Vaccine: Sep 15, 2014 Date of Influenza Vaccine: Mar 02, 2017 Seasonal Allergies Seasonal Allergies: Yes Past Medical History Respiratory: COPD Neurological: Developmental Disorder, Seizure Disorder Psychosocial: Anxiety Review of Systems ROS-Unable to Obtain: unable to obtain any details from the patient Constitutional: see HPI Physical Exam Physical Exam Vital Signs Vital Signs - First Documented 05/05/18 05/05/18 05/05/18 14:07 14:27 19:32 Temp 103.0 Pulse 123 Resp 24 B/P (MAP) 124/71 (88) Pulse Ox 86 O2 Delivery Room Air O2 Flow Rate 3.50 FiO2 21 Capillary Refill : Less Than 3 Seconds Height, Weight, BMI Height: 5'1.00" Weight: 181lbs. 0.1oz. 82.639839vl; 35.1 BMI Method:Stated General Appearance: No Apparent Distress, WD/WN, Chronically ill, Other ( refuses all of my exam so gross inspection is all that I can examine) Eyes: Bilateral Eye Normal Inspection, Bilateral Eye PERRL HEENT: PERRL/EOMI, Pharynx Normal Neck: Full Range of Motion, Normal Inspection, Carotid Bruit Respiratory: No Accessory Muscle Use, No Respiratory Distress Extremity: No Pedal Edema Neurologic/Psychiatric: Alert Skin: Normal Color Results Results/Procedures Labs Laboratory Tests 05/05/18 14:20 05/06/18 03:17 Patient resulted labs reviewed. Assessment/Plan Admission Diagnosis Assessment: Sepsis that progressed to severe sepsis 12 hours later requiring large volume fluid resuscitation Acute adrenal insufficiency placed on hydrocortisone 50 MG IV every 8 hours Pneumonia Asthma Chronic mentally challenged Seizure disorder Leukocytosis Plan: Hydrocortisone IV fluids Nebulizers Antibiotics Admission Status: Inpatient Order (span 2 midnights) Reason for Inpatient Admission: Pneumonia with sepsis and asthma with adrenal insufficiency will require 3 days of hospital stay Diagnosis/Problems Diagnosis/Problems (1) Severe sepsis Status: Acute (2) Pneumonia Status: Acute Qualifiers: Pneumonia type: due to unspecified organism Laterality: left Lung location: unspecified part of lung Qualified Codes: J18.9 - Pneumonia, unspecified organism (3) Adrenal insufficiency Status: Acute (4) Mentally challenged Status: Chronic (5) Asthma Status: Chronic Qualifiers: Asthma severity: moderate Asthma persistence: persistent Asthma complication type: unspecified Qualified Codes: J45.40 - Moderate persistent asthma, uncomplicated (6) Seizure disorder Status: Chronic Clinical Quality Measures DVT/VTE Risk/Contraindication: Risk Factor Score Per Nursin RFS Level Per Nursing on Admit: 2=Moderate DALY CABRERA DO May 06, 2018 12:00
[2018-05-06] MEDS ORDERED: SIMETH PO PRN (12:30)
[2018-05-06] MEDS ORDERED: LORAZEPAM PO PRN (12:30)
[2018-05-06] MEDS ORDERED: IBUPROFEN PO PRN (12:30)
[2018-05-06] MEDS ORDERED: diphenhydrAMINE 12.5 MG/5 ML UDC (BENADRYL) PO PRN (12:30)
[2018-05-06] MEDS ORDERED: RT-ALBUTEROL SULF 2.5 MG/3 ML PRE-MIX VIAL IH PRN ×2 (12:30)
[2018-05-06] MEDS ORDERED: MAG HYDROX PO PRN (12:30)
[2018-05-06] MEDS ORDERED: AL HYDROX PO PRN (12:30)
[2018-05-06] MEDS ORDERED: NON-FORMULARY MEDICATION 1 EA EA (Guaifenesin/Dextromethorphan (Guaifenesin Dm Syrup) 10 M PO PRN (12:30)
[2018-05-06] MEDS ORDERED: HYDROCORTISONE 100 MG/2 ML (Solu-CORTEF) VIAL IV SCH (12:30)
[2018-05-06] MEDS ORDERED: LORazepam ORAL CONCENTRATE 2 MG/ML 30 ML (ATIVAN) PO PRN (12:45)
[2018-05-06] MEDS ORDERED: ANTACID SUSP 30 ML UDC (MYLANTA) PO PRN (12:45)
[2018-05-06] MEDS: KCL 20 MEQ TAB (K-DUR) PO SCH ×2 (12:54→17:01)
[2018-05-06] MEDS: VITAMIN D2 50,000 UNITS (1.25 MG) CAP PO SCH (12:55)
[2018-05-06] MEDS ORDERED: IBUPROFEN SUSP 100MG/5ML (MOTRIN) UDC PO PRN (13:00)
[2018-05-06] MEDS ORDERED: PHENYTOIN PO SCH (13:00)
[2018-05-06] MEDS ORDERED: ALBUTEROL SULFATE PO SCH (13:00)
[2018-05-06] MEDS: guaiFENesin/DM (ROBITUSSIN DM) 10 ML UDC PO PRN ×2 (13:05→21:53)
[2018-05-06] MEDS ORDERED: NS IV 500 ML 500 ML IV ONE (18:45)
[2018-05-06] MEDS ORDERED: NON-FORMULARY MEDICATION 1 EA EA (Budesonide 0.5 MG) NEB SCH (21:00)
[2018-05-06] MEDS ORDERED: ARFORMOTEROL 15 MCG/2 ML (BROVANA) INH SOLUTIION IH SCH (21:00)
[2018-05-06] MEDS: NYSTATIN CREAM (MYCOSTATIN) 30 GM TUBE TP SCH (21:41)
[2018-05-06] MEDS: MONTELUKAST CHEW 5 MG (SINGULAIR) TAB PO SCH (21:41)
[2018-05-07] VITALS (24 sets, daily range): BP systolic 84–124; BP diastolic 51–77
[2018-05-07] MEDS: methylPREDNISolone 40 MG/ML (Solu-MEDROL) VIAL IV SCH ×3 (01:25→17:41)
[2018-05-07] MEDS: NS IV 1000 ML 1,000 ML IV SCH ×4 (01:26→17:58)
[2018-05-07] MEDS ORDERED: NS IV 1000 ML 1,000 ML IV SCH ×2 (02:00)
[2018-05-07] MEDS: RT-ALBUTEROL SULF 2.5 MG/3 ML PRE-MIX VIAL INH SCH ×4 (03:05→20:14)
[2018-05-07 03:50] LABS: BASOPHILS % (AUTO) 0 % (0-10); EOSINOPHILS % (AUTO) 0 % (0-10); HEMATOCRIT 36 % (40-54); HEMOGLOBIN 11.8 G/DL (13.3-17.7); LYMPHOCYTES # (AUTO) 0.8 X 10^3 (1.0-4.0); LYMPHOCYTES % (AUTO) 8 % (12-44); MEAN CORPUSCULAR HEMOGLOBIN 30 PG (25-34); MEAN CORPUSCULAR HGB CONC 33 G/DL (32-36); MEAN CORPUSCULAR VOLUME 92 FL (80-99); MEAN PLATELET VOLUME 9.2 FL (7.4-10.4); MONOCYTES # (AUTO) 0.5 X 10^3 (0.0-1.0); MONOCYTES % (AUTO) 5 % (0-12); NEUTROPHILS # (AUTO) 9.2 X 10^3 (1.8-7.8); NEUTROPHILS % (AUTO) 87 % (42-75); PLATELET COUNT 155 10^3/uL (130-400); RED CELL DISTRIBUTION WIDTH 13.1 % (10.0-14.5); WHITE BLOOD COUNT 10.5 10^3/uL (4.3-11.0)
[2018-05-07 04:08] LABS: BUN/CREATININE RATIO 16; CALCIUM 7.5 MG/DL (8.5-10.1); CARBON DIOXIDE 19 MMOL/L (21-32); CHLORIDE 116 MMOL/L (98-107); CREATININE SERUM 0.69 MG/DL (0.60-1.30); GFR ESTIMATED > 60; GLUCOSE 146 MG/DL (70-105); MAGNESIUM 1.8 MG/DL (1.8-2.4); PHOSPHORUS 2.4 MG/DL (2.3-4.7); SODIUM 143 MMOL/L (135-145)
[2018-05-07] MEDS: PIPERACILLIN/TAZO 4.5 GM/NS 100 ML IV SCH ×6 (06:03→22:20)
[2018-05-07] MEDS: predniSONE 5 MG TAB PO SCH (06:57)
[2018-05-07] MEDS: KCL 20 MEQ TAB (K-DUR) PO SCH ×3 (07:01→17:08)
[2018-05-07] MEDS: RT-BUDESONIDE NEBS 0.5 MG/2ML (PULMICORT) AMP INH SCH ×2 (07:20→20:14)
[2018-05-07] MEDS: ARFORMOTEROL 15 MCG/2 ML (BROVANA) INH SOLUTIION IH SCH ×2 (07:20→20:14)
--- NOTE | 2018-05-07 07:29 | Diagnostic Imaging Report ---
INDICATION: Shortness of air. TIME OF EXAM: 03:31 a.m. Correlation is made with prior study one day earlier. The heart is enlarged but stable. There is central congestion. There is some minimal residual infiltrate in the left mid lung. No effusion or pneumothorax is seen. IMPRESSION: Cardiomegaly and central congestion. Infiltrate in the left mid lung appears to be improved since yesterday. Dictated by: Dictated on workstation # [id number]
--- NOTE | 2018-05-07 07:52 | Pulmonary Progress Note ---
Subjective Time Seen by a Provider: 07:56 Subjective/Events-last exam Pt was hypotensive during the night and received a 1 liter bolus. Sepsis Event Evaluation Height, Weight, BMI Height: 5'1.00" Weight: 183lbs. 0.1oz. 83.709103za; 35.1 BMI Method:Stated Focused Exam Lactate Level 05/05/18 15:00: Lactic Acid Level 0.92 05/06/18 03:17: Lactic Acid Level 1.10 Exam Exam Vital Signs Date Time Temp Pulse Resp B/P (MAP) Pulse Ox O2 Delivery O2 Flow Rate FiO2 05/07/18 07:30 Room Air 05/07/18 07:21 92 Room Air 05/07/18 06:00 67 20 111/67 (82) 93 Room Air 05/07/18 05:00 49 20 95/58 (70) 90 Room Air 05/07/18 04:00 98.0 05/07/18 04:00 50 13 110/65 (80) 92 Room Air 05/07/18 04:00 Nasal Cannula 05/07/18 04:00 98.0 05/07/18 03:05 92 Room Air 05/07/18 03:00 52 14 97/58 (71) 05/07/18 02:19 89 Room Air 05/07/18 02:00 63 14 92/54 (67) 05/07/18 01:00 49 14 112/65 (81) 05/07/18 01:00 49 05/07/18 00:00 Nasal Cannula 05/07/18 00:00 59 20 89/51 (64) 05/07/18 00:00 97.9 05/06/18 23:00 57 15 91/53 (66) 93 Room Air 05/06/18 22:00 56 13 98/51 (67) 93 Room Air 05/06/18 21:23 95 Room Air 05/06/18 21:00 Nasal Cannula 05/06/18 21:00 71 25 89/57 (68) 93 Room Air 05/06/18 20:00 98.7 57 11 104/60 (75) 93 Room Air 05/06/18 19:00 59 12 88/47 (61) 95 Room Air 05/06/18 19:00 62 05/06/18 16:50 98.0 Nasal Cannula 05/06/18 16:48 Nasal Cannula 2.00 05/06/18 15:33 98 Nasal Cannula 2.00 05/06/18 14:00 58 26 87/46 (60) 96 Nasal Cannula 2.00 05/06/18 13:00 51 05/06/18 13:00 52 17 92/50 (64) 98 Nasal Cannula 2.00 05/06/18 12:00 50 25 101/57 (72) 99 Nasal Cannula 2.00 05/06/18 12:00 Nasal Cannula 2.00 05/06/18 11:00 60 20 88/51 (63) 97 Nasal Cannula 2.00 05/06/18 10:00 98 Nasal Cannula 2.00 05/06/18 10:00 67 43 92/53 (66) 97 Nasal Cannula 2.00 05/06/18 10:00 98 Nasal Cannula 2.00 05/06/18 09:00 66 20 111/60 (77) 99 Nasal Cannula 2.00 05/06/18 09:00 Nasal Cannula 05/06/18 08:00 98.5 Nasal Cannula 2.00 05/06/18 08:00 66 26 103/60 (74) 100 Nasal Cannula 2.00 05/06/18 08:00 Nasal Cannula 2.00 I & O 05/07/18 07:00 Intake Total 2740 ml Output Total 4125 ml Balance -1385 ml Height & Weight Height: 5'1.00" Weight: 183lbs. 0.1oz. 83.005626rb; 35.1 BMI Method:Stated General Appearance: No Apparent Distress, WD/WN, Chronically ill, Other ( refuses all of my exam so gross inspection is all that I can examine) HEENT: PERRL/EOMI, Pharynx Normal Neck: Full Range of Motion, Normal Inspection, Carotid Bruit Respiratory: No Accessory Muscle Use, No Respiratory Distress, Other (pt will not let me listen to him ) Cardiovascular: Regular Rate, Rhythm Capillary Refill: Less Than 3 Seconds Gastrointestinal: normal bowel sounds, non tender, soft Extremity: No Pedal Edema Neurologic/Psychiatric: Alert Skin: Normal Color Results Lab Laboratory Tests 05/05/18 14:20 05/06/18 03:17 05/07/18 03:25 Assessment/Plan Assessment/Plan Pneumonia with sepsis (not severe sepsis) -Continue current Zosyn -Novoa cultures pending HX of MR and pt pulled out IV -Risperdal PO BID (not sure if he will take POs) -Precedex IV for now -Haldol and morphine PRN Hx of severe KURTIS (noncompliant with CPAP therapy) and morbid obesity Hypotension -Pt had 1 liter bolus last night -Will give another 500 cc bolus MICHAEL VALVERDE DO May 07, 2018 07:52
[2018-05-07] MEDS ORDERED: NS IV 1000 ML 1,000 ML IV ONE (08:00)
[2018-05-07] MEDS ORDERED: CETIRIZINE HCL PO SCH (09:00)
[2018-05-07] MEDS: LORATADINE 5 MG/5 ML SOLN (CLARITIN) UDC PO SCH (09:38)
[2018-05-07] MEDS: PHENYTOIN ORAL SUSPENSION 125 MG/5 ML UDC PO SCH ×3 (09:39→20:43)
[2018-05-07] MEDS: risperiDONE 1 MG (RisperDAL) TAB PO SCH ×2 (09:39→20:44)
[2018-05-07] MEDS: NYSTATIN CREAM (MYCOSTATIN) 30 GM TUBE TP SCH ×2 (09:44→20:44)
[2018-05-07] MEDS: FLUTICASONE NASAL SPRAY (FLONASE) 16 GM BTL NS SCH (10:17)
--- NOTE | 2018-05-07 11:16 | Progress Note-Hospitalist ---
Subjective HPI/CC On Admission Date Seen by Provider: May 07, 2018 Time Seen by Provider: 11:11 CC: Sepsis with pneumonia HPI: This is a 47-year-old white male mentally retarded individual who resides in a [facility] who presented with fever and oxygen saturation of 86 percent. He was found to have pneumonia and elevated lactic acid consistent with sepsis. He was placed on IV fluids and monitored and cardiac stepdown status but began having low blood pressures through the later evening requiring severe sepsis classification and subsequent large volume fluid resuscitation but upon further evaluation he is on chronic steroids so likely a component of adrenal insufficiency is a factor also in the hypotension so will start with hydrocortisone 50 MG IV every 8 hours. Currently he is doing much better has not required any type of respiratory support other than oxygen and nebulizer treatments. He refuses to allow me to examine him so he was given Precedex when the ICU nurses need to provide him with treatment or cares. Subjective/Events-last exam Patient intermittently agitated requiring Precedex. After some pleasant cajoling he did allow me to examine him. Initially wanted to leave and it earlier pulled out his IV. We did have a ashen in very simple terms about his pneumonia with sepsis and need to continue IV antibiotics as I was contacted this morning with positive blood cultures growing gram-negative organism most likely Haemophilus. He denies any chest pain or shortness of breath. History taking otherwise is difficult due to low IQ. Focused Exam Lactate Level 05/05/18 15:00: Lactic Acid Level 0.92 05/06/18 03:17: Lactic Acid Level 1.10 Objective Exam Vital Signs Vital Signs Date Time Temp Pulse Resp B/P (MAP) Pulse Ox O2 Delivery O2 Flow Rate FiO2 05/07/18 08:47 93 Room Air 05/07/18 07:00 51 05/07/18 06:00 20 111/67 (82) 05/07/18 04:00 98.0 05/06/18 16:48 2.00 05/05/18 19:32 21 Capillary Refill : Less Than 3 Seconds General Appearance: No Apparent Distress, Obese Respiratory: Other (F lower lobe rales and rhonchi are noted with some vesicular breath sounds no wheezing appreciated elsewhere her chest is clear although there are somewhat distant breath sounds posteriorly.) Cardiovascular: Regular Rate, Rhythm, No Edema, No Gallop, No JVD, No Murmur, Normal Peripheral Pulses Gastrointestinal: Normal Bowel Sounds, No Organomegaly, No Pulsatile Mass, Non Tender, Soft Results/Procedures Lab Laboratory Tests 05/07/18 03:25 Patient resulted labs reviewed. Assessment/Plan Assessment and Plan Assess & Plan/Chief Complaint 1. Left lower lobe pneumonia with sepsis not severe with bacteremia most likely Haemophilus influenza but culture and sensitivity are pending. He is clinically responding to Zosyn with decreasing white count and has been afebrile. We'll continue IV antibiotics and considering the fact that he is easily agitated requiring IV Precedex will need to remain in the intensive care unit. 2. Reported history of significant obstructive sleep apnea per Dr. Kincaid. Patient refuses CPAP. 3. Developmental disability requiring long-term care facility placement long- standing. Clinical Quality Measures DVT/VTE Risk/Contraindication: Risk Factor Score Per Nursin RFS Level Per Nursing on Admit: 2=Moderate ROGERIO BREWER MD May 07, 2018 11:16
[2018-05-07] MEDS: guaiFENesin/DM (ROBITUSSIN DM) 10 ML UDC PO PRN (12:59)
[2018-05-07] MEDS: DEXMEDETOMIDINE INJECTION 200 MCG in NS (IVPB) 50 ML IV SCH (14:56)
[2018-05-07] MEDS: MONTELUKAST CHEW 5 MG (SINGULAIR) TAB PO SCH (20:43)
[2018-05-08] VITALS (20 sets, daily range): BP systolic 75–136; BP diastolic 52–91
[2018-05-08] MEDS: NS IV 1000 ML 1,000 ML IV SCH (00:23)
[2018-05-08] MEDS: methylPREDNISolone 40 MG/ML (Solu-MEDROL) VIAL IV SCH ×3 (03:34→17:16)
--- NOTE | 2018-05-08 05:27 | Pulmonary Progress Note ---
Subjective Time Seen by a Provider: 05:25 Subjective/Events-last exam Pt is refusing labs, he is kicking ICU nurses out of the room and not letting them access him. Yesterday he would not let me listen to his lungs. He is at times refusing PO meds and nebulizer txs. Sepsis Event Evaluation Height, Weight, BMI Height: 5'1.00" Weight: 183lbs. 0.1oz. 83.413371nw; 35.1 BMI Method:Stated Focused Exam Lactate Level 05/05/18 15:00: Lactic Acid Level 0.92 05/06/18 03:17: Lactic Acid Level 1.10 Exam Exam Vital Signs Date Time Temp Pulse Resp B/P (MAP) Pulse Ox O2 Delivery O2 Flow Rate FiO2 05/08/18 05:00 51 118/74 (89) Room Air 05/08/18 04:00 97.3 05/08/18 04:00 Room Air 05/08/18 04:00 55 18 110/61 (77) Room Air 05/08/18 03:00 50 112/64 (80) Room Air 05/08/18 02:00 54 109/63 (78) Room Air 05/08/18 01:00 60 05/08/18 01:00 60 16 116/63 (80) Room Air 05/08/18 00:00 56 20 108/61 (77) Room Air 05/07/18 23:53 97.5 05/07/18 23:00 56 28 117/69 (85) Room Air 05/07/18 22:00 68 13 109/77 (88) Room Air 05/07/18 21:00 67 24 119/66 (83) Room Air 05/07/18 20:29 Room Air 05/07/18 20:22 Room Air 05/07/18 20:14 94 Room Air 05/07/18 20:00 Room Air 05/07/18 20:00 66 22 113/68 (83) Room Air 05/07/18 19:52 98.5 05/07/18 19:00 70 05/07/18 19:00 62 26 84/62 (69) Room Air 05/07/18 18:00 53 26 111/70 (84) 94 Room Air 05/07/18 17:00 54 26 120/71 (87) 93 Room Air 05/07/18 16:45 94 Room Air 05/07/18 16:45 98.4 94 Room Air 05/07/18 16:00 55 26 111/65 (80) Room Air 05/07/18 15:00 65 22 124/72 (89) Room Air 05/07/18 14:25 94 Room Air 05/07/18 14:00 54 25 119/70 (86) Room Air 05/07/18 13:30 94 Room Air 05/07/18 13:00 68 05/07/18 13:00 56 26 123/74 (90) Room Air 05/07/18 12:08 97.1 Room Air 05/07/18 12:00 100/53 (69) Room Air 05/07/18 12:00 Room Air 05/07/18 11:00 63 12 101/57 (72) 93 Room Air 05/07/18 10:00 63 12 120/77 (91) 93 Room Air 05/07/18 09:40 98.1 Room Air 05/07/18 09:00 53 15 101/54 (70) 93 Room Air 05/07/18 08:47 93 Room Air 05/07/18 08:00 50 14 104/53 (70) 91 Room Air 05/07/18 07:30 Room Air 05/07/18 07:21 92 Room Air 05/07/18 07:00 51 05/07/18 07:00 73 44 108/67 (81) 92 Room Air 05/07/18 06:00 67 20 111/67 (82) 93 Room Air I & O 05/08/18 07:00 Intake Total 5982 ml Output Total 4900 ml Balance 1082 ml Height & Weight Height: 5'1.00" Weight: 183lbs. 0.1oz. 83.873952mw; 35.1 BMI Method:Stated General Appearance: No Apparent Distress, Obese HEENT: PERRL/EOMI, Pharynx Normal Neck: Full Range of Motion, Normal Inspection, Carotid Bruit Respiratory: Decreased Breath Sounds, Wheezing Cardiovascular: Regular Rate, Rhythm, No Edema, No Gallop, No JVD, No Murmur, Normal Peripheral Pulses Capillary Refill: Less Than 3 Seconds Gastrointestinal: normal bowel sounds, non tender, soft Extremity: No Pedal Edema Neurologic/Psychiatric: Alert Skin: Normal Color Results Lab Laboratory Tests 05/07/18 03:25 Assessment/Plan Assessment/Plan Pneumonia with sepsis (not severe sepsis) -Change Zosyn to Augmentin x 5 more days -Sepsis quickly resolved with IV Abx - this was never severe sepsis -Novoa cultures pending Coughing wheezing - probably from bronchospasam vs pulmonary edema -Will give lasix 60mg IV x 1 -Solumedrol 125mg IV x 1 Hypotension was from sedation medications and adrenal suppression now resolved. Bacteremia - 1/2 probably contamination HX of MR and pt pulled out IV -Risperdal PO BID (not sure if he will take POs) -Precedex IV for now -Haldol and morphine PRN Hx of severe KURTIS (noncompliant with CPAP therapy) and morbid obesity Hypotension - resolved Pt is refusing labs, he is kicking ICU nurses out of the room. He is sometime refusing PO meds. Pt is ok for discharge from my standpoint if his lungs clear up after breathing treatment, solumedrol, and lasix. I am hep locking his IVF and changing IV abx to PO. I will f/u with him as an out patient in 2-4wks. MICHAEL VALVERDE DO May 08, 2018 05:27
[2018-05-08] MEDS ORDERED: FUROSEMIDE 40 MG/4 ML INJ (LASIX) IVP ONE ×2 (05:30→05:45)
[2018-05-08] MEDS ORDERED: methylPREDNISolone 125 MG (Solu-MEDROL) VIAL IVP ONE (05:30)
[2018-05-08] MEDS ORDERED: KCL 10 MEQ TAB (MICRO K) PO ONE (05:30)
[2018-05-08] MEDS ORDERED: methylPREDNISolone 125 MG (Solu-MEDROL) VIAL ONE (05:31)
[2018-05-08] MEDS ORDERED: FUROSEMIDE 40 MG/4 ML INJ (LASIX) ONE (05:32)
[2018-05-08] MEDS: KCL 20 MEQ TAB (K-DUR) PO SCH ×3 (05:56→17:50)
[2018-05-08] MEDS: AUGMENTIN 875 MG TAB (AMOXICILLIN/CLAVULANATE) PO SCH ×2 (05:56→17:51)
[2018-05-08] MEDS ORDERED: MAGNESIUM 1 GM/100 ML IVPB 100 ML IV SCH (06:00)
[2018-05-08] MEDS ORDERED: POTASSIUM CL 10MEQ/50ML IVPB 50 ML IV SCH (06:00)
[2018-05-08] MEDS ORDERED: KCL 20 MEQ TAB (K-DUR) PO SCH (06:00)
[2018-05-08] MEDS ORDERED: KCL 20 MEQ TAB (K-DUR) PO ONE (06:00)
[2018-05-08] MEDS: RT-BUDESONIDE NEBS 0.5 MG/2ML (PULMICORT) AMP INH SCH ×2 (07:36→18:58)
[2018-05-08] MEDS: RT-ALBUTEROL SULF 2.5 MG/3 ML PRE-MIX VIAL INH SCH ×3 (07:36→19:05)
[2018-05-08] MEDS: PHENYTOIN ORAL SUSPENSION 125 MG/5 ML UDC PO SCH ×3 (08:40→21:37)
[2018-05-08] MEDS: risperiDONE 1 MG (RisperDAL) TAB PO SCH ×2 (08:40→21:37)
[2018-05-08] MEDS: VITAMIN D2 50,000 UNITS (1.25 MG) CAP PO SCH (08:40)
[2018-05-08] MEDS: LORATADINE 5 MG/5 ML SOLN (CLARITIN) UDC PO SCH (08:41)
[2018-05-08] MEDS: NYSTATIN CREAM (MYCOSTATIN) 30 GM TUBE TP SCH ×2 (08:41→21:00)
[2018-05-08] MEDS: FLUTICASONE NASAL SPRAY (FLONASE) 16 GM BTL NS SCH (08:41)
--- NOTE | 2018-05-08 08:43 | Diagnostic Imaging Report ---
INDICATION: Shortness of breath COMPARISON: 05/07/2018 FINDINGS: A single view of the chest demonstrates cardiac enlargement without overt pulmonary edema. There is atelectasis and effusion in the left base which is stable. The right lung is clear. There is no pneumothorax. Osseous structures are age-appropriate. IMPRESSION: Unchanged aeration of the lungs. Dictated by: Dictated on workstation # [id number]
[2018-05-08] MEDS: guaiFENesin/DM (ROBITUSSIN DM) 10 ML UDC PO PRN (11:18)
--- NOTE | 2018-05-08 12:19 | Progress Note-Hospitalist ---
Subjective HPI/CC On Admission Date Seen by Provider: May 08, 2018 Time Seen by Provider: 12:14 CC: Sepsis with pneumonia HPI: This is a 47-year-old white male mentally retarded individual who resides in a alf who presented with fever and oxygen saturation of 86 percent. He was found to have pneumonia and elevated lactic acid consistent with sepsis. He was placed on IV fluids and monitored and cardiac stepdown status but began having low blood pressures through the later evening requiring severe sepsis classification and subsequent large volume fluid resuscitation but upon further evaluation he is on chronic steroids so likely a component of adrenal insufficiency is a factor also in the hypotension so will start with hydrocortisone 50 MG IV every 8 hours. Currently he is doing much better has not required any type of respiratory support other than oxygen and nebulizer treatments. He refuses to allow me to examine him so he was given Precedex when the ICU nurses need to provide him with treatment or cares. Subjective/Events-last exam Patient smiling and agreeable to examination today reaching out to shake my hand. He still was refusing meds intermittently yesterday there were oral but getting all IV medication. Staff report he still has significant wheezing and current nurses having no difficulty in getting the patient to comply with therapy thus far this morning. He voices no complaints but is difficult to understand with significant developmental disability Focused Exam Lactate Level 05/05/18 15:00: Lactic Acid Level 0.92 05/06/18 03:17: Lactic Acid Level 1.10 Objective Exam Vital Signs Vital Signs Date Time Temp Pulse Resp B/P (MAP) Pulse Ox O2 Delivery O2 Flow Rate FiO2 05/08/18 12:00 79 16 119/74 (89) Room Air 05/08/18 08:00 98.7 05/08/18 07:45 94 05/06/18 16:48 2.00 05/05/18 19:32 21 Capillary Refill : Less Than 3 Seconds General Appearance: No Apparent Distress, Obese Respiratory: No Accessory Muscle Use, No Respiratory Distress, Other (Diffuse expiratory wheezing noted throughout no focal consolidative findings present.) Cardiovascular: Regular Rate, Rhythm, No Edema, No Gallop, No JVD, No Murmur, Normal Peripheral Pulses Gastrointestinal: Normal Bowel Sounds, No Organomegaly, No Pulsatile Mass, Non Tender, Soft Extremity: No Calf Tenderness, No Pedal Edema Results/Procedures Lab Patient resulted labs reviewed. Assessment/Plan Assessment and Plan Assess & Plan/Chief Complaint 1. Left lower lobe pneumonia with sepsis not severe with bacteremia most likely Haemophilus influenza but culture and sensitivity are pending. He is clinically responding to Zosyn with decreasing white count and has been afebrile. Per Dr. Kincaid he's being switched to Augmentin for which I am in agreement. Patient reportedly has a history of chronic reactive airways and still does have some significant wheezing continue IV Solu-Medrol today. Dr. Kincaid is considering discharge tomorrow pending respiratory status. 2. Reported history of significant obstructive sleep apnea per Dr. Kincaid. Patient refuses CPAP. 3. Developmental disability requiring long-term care facility placement long- standing. Clinical Quality Measures DVT/VTE Risk/Contraindication: Risk Factor Score Per Nursin RFS Level Per Nursing on Admit: 2=Moderate ROGERIO BREWER MD May 08, 2018 12:19
[2018-05-08] MEDS: ARFORMOTEROL 15 MCG/2 ML (BROVANA) INH SOLUTIION IH SCH ×2 (14:13→18:57)
[2018-05-08] MEDS: MONTELUKAST CHEW 5 MG (SINGULAIR) TAB PO SCH (21:37)
--- NOTE | 2018-05-09 05:37 | Pulmonary Progress Note ---
Subjective Time Seen by a Provider: 07:55 Subjective/Events-last exam pt appears to be doing better Sepsis Event Evaluation Height, Weight, BMI Height: 5'1.00" Weight: 195lbs. 0.1oz. 88.026723ca; 35.1 BMI Method:Stated Exam Exam Vital Signs Date Time Temp Pulse Resp B/P (MAP) Pulse Ox O2 Delivery O2 Flow Rate FiO2 05/08/18 21:40 98.6 72 16 123/71 (88) 93 Room Air 05/08/18 21:00 Room Air 05/08/18 20:00 123/71 (88) 05/08/18 19:46 98.7 05/08/18 16:00 Room Air 05/08/18 16:00 87 15 136/91 (106) Room Air 05/08/18 15:00 93 15 75/61 (66) Room Air 05/08/18 14:18 Room Air 05/08/18 14:00 89 23 97/68 (78) Room Air 05/08/18 13:00 65 20 113/58 (76) Room Air 05/08/18 13:00 65 05/08/18 12:00 79 16 119/74 (89) Room Air 05/08/18 12:00 98.5 Room Air 05/08/18 12:00 Room Air 05/08/18 11:00 111 25 112/52 (72) Room Air 05/08/18 10:00 80 26 136/83 (100) Room Air 05/08/18 09:00 74 16 112/70 (84) Room Air 05/08/18 08:00 Room Air 05/08/18 08:00 65 20 126/73 (90) Room Air 05/08/18 08:00 98.7 Room Air 05/08/18 07:45 94 Room Air 05/08/18 07:42 60 05/08/18 07:38 Room Air 05/08/18 07:00 62 05/08/18 07:00 64 13 122/78 (93) Room Air 05/08/18 06:00 53 13 118/82 (94) 94 Room Air I & O 05/09/18 07:00 Intake Total 2300 ml Output Total 5650 ml Balance -3350 ml Height & Weight Height: 5'1.00" Weight: 195lbs. 0.1oz. 88.027755ts; 35.1 BMI Method:Stated General Appearance: No Apparent Distress, Obese HEENT: PERRL/EOMI, Pharynx Normal Neck: Full Range of Motion, Normal Inspection, Carotid Bruit Respiratory: No Accessory Muscle Use, No Respiratory Distress, Decreased Breath Sounds Cardiovascular: Regular Rate, Rhythm, No Edema, No Gallop, No JVD, No Murmur, Normal Peripheral Pulses Capillary Refill: Less Than 3 Seconds Gastrointestinal: normal bowel sounds, non tender, soft Extremity: No Calf Tenderness, No Pedal Edema Neurologic/Psychiatric: Alert Skin: Normal Color Assessment/Plan Assessment/Plan Pneumonia with sepsis (not severe sepsis) with questionable bacteremia +1/2 blood cultures -Augmentin for total Abx 7-10days -Sepsis quickly resolved with IV Abx - this was never severe sepsis -Novoa cultures pending Coughing wheezing - improved -Prednisone 40mg start titrating down by 10mg every other day starting tomorrow Hypotension was from sedation medications and adrenal suppression now resolved. HX of MR and pt pulled out IV -Risperdal PO BID Hx of severe KRUTIS (noncompliant with CPAP therapy) and morbid obesity Hypotension - resolved Pt pulled out IV again. He is sometimes refusing PO meds. Pt is ok for discharge from my standpoint. I will f/u with him as an out patient in 2-4wks. MICHAEL VALVERDE DO May 09, 2018 05:37
[2018-05-09] MEDS: predniSONE 5 MG TAB PO SCH (06:38)
[2018-05-09] MEDS: AUGMENTIN 875 MG TAB (AMOXICILLIN/CLAVULANATE) PO SCH (06:45)
[2018-05-09] MEDS: KCL 20 MEQ TAB (K-DUR) PO SCH ×2 (06:45→11:17)
[2018-05-09 06:48] VITALS: BP 111/71
[2018-05-09] MEDS: RT-ALBUTEROL SULF 2.5 MG/3 ML PRE-MIX VIAL INH SCH (06:55)
[2018-05-09] MEDS: RT-BUDESONIDE NEBS 0.5 MG/2ML (PULMICORT) AMP INH SCH (06:57)
[2018-05-09] MEDS ORDERED: predniSONE 20 MG TAB PO SCH (07:00)
--- NOTE | 2018-05-09 07:41 | Discharge Summary-Hospitalist ---
Diagnosis/Chief Complaint Date of Admission May 05, 2018 at 16:05 Date of Discharge Discharge Date: May 09, 2018 Admission Diagnosis Assessment: Sepsis that progressed to severe sepsis 12 hours later requiring large volume fluid resuscitation Acute adrenal insufficiency placed on hydrocortisone 50 MG IV every 8 hours Pneumonia Asthma Chronic mentally challenged Seizure disorder Leukocytosis Plan: Hydrocortisone IV fluids Nebulizers Antibiotics Discharge Diagnosis (1) Severe sepsis Status: Acute (2) Pneumonia Status: Acute (3) Adrenal insufficiency Status: Acute (4) Mentally challenged Status: Chronic (5) Asthma Status: Chronic (6) Seizure disorder Status: Chronic Discharge Summary Procedures/Consulations Dr Jaiden Gibbons Discharge Physical Exam Allergies: Uncoded Allergies: TAPE (Allergy, Unknown, 05/18/16) Vitals & I&Os Vital Signs Date Time Temp Pulse Resp B/P (MAP) Pulse Ox O2 Delivery O2 Flow Rate FiO2 05/09/18 12:00 128/87 (101) 05/09/18 11:09 97.9 78 18 92 Room Air 05/06/18 16:48 2.00 05/05/18 19:32 21 General Appearance: No Apparent Distress, Chronically ill Respiratory: No Accessory Muscle Use, No Respiratory Distress, Wheezing (mild) Cardiovascular: Regular Rate, Rhythm, No Murmur Hospital Course Pt was admitted for severe sepsis due to pneumonia. He responded well to antibiotics and recovered quickly. He was at times resist to care and required precedex for sedation to help with agitation. On day of discharge he was feeling better and ok with plan for discharge. Caregiver at bedside felt comfortable with ability to care for patient as an outpatient as well. He was discharged home in stable condition to complete antibiotic course as an outpatient. Labs (last 24 hrs) Microbiology 05/05/18 Blood Culture - Preliminary, Resulted No growth 05/05/18 Influenza Types A,B Antigen (CHRIS) - Final, Complete Patient resulted labs reviewed. Discussion & Recommendations Discharge Planning: >30 minutes discharge planning Discharge Home Medications: Active Scripts Active Prednisone 20 Mg Tab 40 Mg PO DAILY@0700 Amox Tr-K Clv 875-125 mg Tab (Amoxicillin/Potassium Clav) 1 Each Tablet 875 Mg PO BID WITH MEALS Reported Sodium Chloride (Sodium Chloride For Inhalation) 3 Ml Vial.neb 1 Vial NEB Q4H PRN Nystatin 15 Gm Cream..g. TP BID Tolnaftate 130 Gm Aero.powd TP PER PACKAGING Proair Hfa (Albuterol Sulfate) 1 Puff Puff 1-2 Puff IH Q6H PRN 1 PUFF = 90 MCG Guaifenesin Dm Syrup (Guaifenesin/Dextromethorphan) 5 Ml Syrup 10 Ml PO Q6H PRN Lorazepam Intensol (Lorazepam) 2 Mg/1 Ml Oral.conc 0.25 Ml PO DAILY PRN TO BE USED PREMED FOR PROCEDURES AND DR. APPTS. Ibuprofen 100 Mg/5 Ml Oral.susp 30 Ml PO Q6H PRN Hydrocortisone (Hydrocortisone Acetate) 28 Gm Oint...g. TP BID PRN 1% Triple Antibiotic Ointment (Neomycin/Polymyxin/Bacitracin) 0.9 Gm Oint TP BID PRN Antacid Liquid (Mag Hydrox/Al Hydrox/Simeth) 355 Ml Oral.susp 15 Ml PO Q6H PRN Diphenhydramine HCl 12.5 Mg/5 Ml Liquid 10 Ml PO Q6H PRN Benadryl Itch Stopping Crm (Diphenhydramine HCl/Zinc Acet) 28.3 Gm Cream..g. TP Q8H PRN Fluticasone Propionate 16 Gm [place].susp 2 Sprays NS DAILY Albuterol Sulfate 2.5 Mg/3 Ml Vial.neb 2.5 Mg NEB Q6H PRN Brovana (Arformoterol Tartrate) 15 Mcg/2 Ml Vial.neb 15 Mcg NEB BID Budesonide 0.5 Mg/2 Ml Ampul.neb 0.5 Mg NEB BID Cetirizine HCl 1 Mg/1 Ml Solution 10 Ml PO DAILY Phenytoin 125 Mg/5 Ml Oral.susp 5.6 Ml PO TID Vitamin D2 (Ergocalciferol (Vitamin D2)) 50,000 Unit Capsule 50,000 Units PO FR Montelukast Sodium 5 Mg Tab.chew 10 Mg PO HS Potassium Chloride 20 Meq Tab.er.prt 20 Meq PO TID Prednisone 5 Mg Tablet 5 Mg PO Q48H Albuterol Sulfate Syrup (Albuterol Sulfate) 2 Mg/5 Ml Syrup 5 Ml PO TID Nystatin 15 Gm Powder TOP BID PRN Instructions to patient/family Please see electronic discharge instructions given to patient. Clinical Quality Measures DVT/VTE Risk/Contraindication: Risk Factor Score Per Nursin RFS Level Per Nursing on Admit: 2=Moderate Problem Qualifiers (1) Pneumonia: Pneumonia type: due to unspecified organism Laterality: left Lung location: unspecified part of lung Qualified Codes: J18.9 - Pneumonia, unspecified organism (2) Asthma: Asthma severity: moderate Asthma persistence: persistent Asthma complication type: unspecified Qualified Codes: J45.40 - Moderate persistent asthma, uncomplicated CHRISTOPHER MATIAS MD May 09, 2018 07:41
[2018-05-09] MEDS ORDERED: AMOX1TAB12 PO (07:47)
[2018-05-09] MEDS ORDERED: PRD20T PO (07:47)
--- NOTE | 2018-05-09 07:50 | Discharge Inst-Simple/Standard ---
Discharge Inst-Standard Discharge Medications New, Converted or Re-Newed RX: RX on Chart Patient Instructions/Follow Up Plan of Care/Instructions/FU: Please continue to take your medications as written. Please follow up with Dr Liriano and Dr Kincaid as recommended. Activity as Tolerated: Yes Discharge Diet: No Restrictions Return to The Hospital For: Shortness of breath, worsening fever, chest pain, confusion, if you feel you are getting worse. CHRISTOPHER MATIAS MD May 09, 2018 07:50
[2018-05-09] MEDS: ARFORMOTEROL 15 MCG/2 ML (BROVANA) INH SOLUTIION IH SCH (10:30)
[2018-05-09] MEDS: LORATADINE 5 MG/5 ML SOLN (CLARITIN) UDC PO SCH (10:47)
[2018-05-09] MEDS: PHENYTOIN ORAL SUSPENSION 125 MG/5 ML UDC PO SCH (10:47)
[2018-05-09] MEDS: FLUTICASONE NASAL SPRAY (FLONASE) 16 GM BTL NS SCH (10:47)
[2018-05-09] MEDS: risperiDONE 1 MG (RisperDAL) TAB PO SCH (10:47)
[2018-05-09] MEDS: NYSTATIN CREAM (MYCOSTATIN) 30 GM TUBE TP SCH (10:47)
[2018-05-09 11:09] VITALS: BP 128/87
[2018-05-09] MEDS ORDERED: FLU QUADRIvalent (5+ YOA) 2018-2019 (AFLURIA) 0.5 ML IM ONE (11:14)
[2018-05-09 12:00] VITALS: BP 128/87
== END 2018-05-09 12:15 | DRG 871 ==
LOC: EDUNIT# 13:52 → ER 13:53 → ICU 16:05
PROVIDERS: ADMIT Internal Medicine; ATTEND Family Medicine
DX: A41.9 Sepsis, unspecified organism (principal); J18.9 Pneumonia, unspecified organism; G91.1 Obstructive hydrocephalus; J45.40 Moderate persistent asthma, uncomplicated; G47.33 Obstructive sleep apnea (adult) (pediatric); E66.01 Morbid (severe) obesity due to excess calories; Z68.35 Body mass index [BMI] 35.0-35.9, adult; E27.40 Unspecified adrenocortical insufficiency; I95.2 Hypotension due to drugs; Z91.19 Patient's noncompliance with other medical treatment and regimen; F79 Unspecified intellectual disabilities; F89 Unspecified disorder of psychological development; G40.909 Epilepsy, unspecified, not intractable, without status epilepticus; F41.9 Anxiety disorder, unspecified; Z79.52 Long term (current) use of systemic steroids
CPT/HCPCS: 36415; 71045; 80048; 80053; 83605; 83735; 84100; 85007; 85025; 85027; 87040; 87077; 87184; 87185; 87804; 90686; 94640; 96361; 96365; 96375

== ENCOUNTER → 2018-07-21 | Outpatient (CLI) | payer MEDICARE, MEDICAID ==
[~2018-07-21] MED LIST changes: +ALBU2.5V4 NEB; +AMOX1TAB12 PO; +ARFO15VI3 NEB; +BUDE0.5A NEB; +CETI-265 PO; +DIPH-124 PO; +DIPH28.33 TP; +ERGO50006 PO; +FLUT16SP22 NS; +GUAI5SYR PO; +HYDR28OI2 TP; +IBUP100O28 PO; +LORA2ORA PO; +MAG-86 PO; +MONT5TAB16 PO; +NPB.9O TP; +NYST15CR TP; +NYST15PO4 TOP; +PHEN125O3 PO; +POTA20TA15 PO; +PRED5TAB PO; +RT-ALBUINH IH; +SODI3VIA NEB; +[UNRECOGNIZED DRUG - CODE] PO; +[UNRECOGNIZED DRUG - CODE] TP
--- NOTE | 2018-07-21 09:58 | Diagnostic Imaging Report ---
PROCEDURE: US abdomen complete. TECHNIQUE: Multiple real-time grayscale images were obtained over the abdomen in various projections. INDICATION: Abdominal pain. FINDINGS: The liver is normal in size at 15.1 cm. No discrete liver mass is seen. The portal vein is patent and shows normal direction of flow. The gallbladder is without evidence of stones or sludge. No wall thickening or biliary ductal dilatation is seen. The pancreas is poorly visualized due to bowel gas. Spleen is normal in size. Aorta and IVC were obscured by bowel gas. Right and left kidneys are unremarkable. No calculi or hydronephrosis is seen. There is no ascites. Sonographic interrogation of the area of the patient's incision was also evaluated. No focal abdominal wall defect or hernia is detected. No fluid collection is identified. IMPRESSION: Unremarkable abdominal ultrasound. Dictated by: Dictated on workstation # [id number]
== END ==
LOC: RAD 08:27
PROVIDERS: ATTEND Surgery
DX: R10.9 Unspecified abdominal pain (principal)
CPT/HCPCS: 76700

== ENCOUNTER 2018-08-29 15:01 | Inpatient (IN) | payer MEDICARE, MEDICAID ==
[~2018-08-29] VITALS: Ht 154.9 cm; Wt 85.8 kg
--- OUTSIDE RECORDS SUMMARY | 2018-08-29 15:07 | XMS REPORT | Clinical Summary ---
Author Author [facility] Organization [facility] Address Unknown Phone Unavailable Care Team Providers Care Residential Treatment Counselor Name Role Phone PCP Unavailable Source Comments Some departments are not documenting in the electronic medical record. If you do not see the information that you expected, contact Release of Information in the Health Information Management department at [phone] for further assistance in locating additional records.[facility] Allergies Comments Active Allergy Reactions Severity Noted Date Adhesive RASH Medium 08/13/2016 Medications End Date Status Medication Sig Dispensed Refills Start Date Active ALBUTEROL IN Inhale by 0 mouth into the lungs. Active DIPHENHYDRAMINE HCL Take by 0 (BENADRYL ALLERGY PO) mouth. Active montelukast (SINGULAIR) 5 Chew 5 mg by 0 mg chew tablet mouth at bedtime daily. Active phenytoin (DILANTIN) 125 Take 300 mg 0 mg/5 mL oral suspension by mouth three times daily. Active potassium chloride SR Take 20 mEq 0 (K-DUR) 20 mEq tablet by mouth daily. Take with a meal and a full glass of water. Active PREDNISOLONE PO Take by 0 mouth. Active BUDESONIDE/FORMOTEROL Inhale by 0 FUMARATE (SYMBICORT IN) mouth into the lungs. Active Tolnaftate 1 % spra Apply 0 topically to affected area. Active ERGOCALCIFEROL (VITAMIN Take by 0 D2) (VITAMIN D PO) mouth. Active Problems Problem Noted Date Nuclear sclerotic cataract of both eyes 08/13/2016 Last Assessment & Plan: Diminished red reflex on direct ophthalmoscopy. Examination limited by patient cooperation but care givers report good functionality, ambulation, eating, watching TV. Defer further evaluation pending functional impairment as observed by care givers. Then will require sedation for examination. Social History Date Tobacco Use Types Packs/Day Years Used Never Smoker Alcohol Use Drinks/Week oz/Week Comments No 0 Standard 0.0 drinks or equivalent Sex Assigned at Date Recorded Not on file Industry Job Start Date Occupation Not on file Not on file Not on file Travel End Travel History Travel Start No recent travel history available. Last Filed Vital Signs Time Taken Vital Sign Reading - Blood Pressure - - Pulse - - Temperature - - Respiratory Rate - - Oxygen Saturation - - Inhaled Oxygen - Concentration 08/13/2016 9:45 AM EMERGENCY ROOM RN Weight 86.6 kg (191 lb) 08/13/2016 9:45 AM EMERGENCY ROOM RN Height 154.9 cm (5' 1") 08/13/2016 9:45 AM EMERGENCY ROOM RN Body Mass Index 36.09 Plan of Treatment Health Maintenance Due Date Last Done Comments PHYSICAL (COMPREHENSIVE) 1977 EXAM HIV SCREENING 1985 DTAP/TDAP VACCINES (1 - 1988 Tdap) INFLUENZA VACCINE 01/05/2018 Results Not on filefrom Last 3 Months
[2018-08-29] MEDS ORDERED: RT-ALBUTEROL SULF 2.5 MG/3 ML PRE-MIX VIAL INH STA (15:21)
[2018-08-29] MEDS ORDERED: NS IV 500 ML 500 ML IV ONE (15:21)
[2018-08-29] MEDS ORDERED: NS IV 1000 ML 1,000 ML IV SCH (15:21)
[2018-08-29] MEDS ORDERED: RT-ALBUTEROL SULF 2.5 MG/3 ML PRE-MIX VIAL ONE (15:22)
[2018-08-29] MEDS ORDERED: RT-IPRATROPIUM (ATROVENT) 0.5MG/2.5ML AMP IH ONE (15:22)
--- NOTE | 2018-08-29 15:26 | ED Respiratory ---
General Chief Complaint: Cough/Cold/Flu Symptoms Stated Complaint: COUGHING CONGESTION Source: patient, old records, caregiver Exam Limitations: no limitations History of Present Illness Date Seen by Provider: Aug 29, 2018 Time Seen by Provider: 15:05 Initial Comments The patient presents to the ER by private conveyance from the walk-in clinic where they were directed to come to the ER. For the last week they've been noticing that the patient who lives in a fdc under 24 7 caregiver support has been having increased wheezing and coughing and shortness of breath area is also had runny nose nasal congestion. Decreased appetite last couple days. They were using the albuterol inhaler for the past week but for the past 2 -3 days staff has been doing every 4 hours [id number]-[id number]. They've noted the patient's oxygen saturation at home to be as low as 70% on room air. He does not use oxygen at baseline. He does have a history of asthma. There are children that he is exposed to in the past few weeks to have had influenza. He has not had influenza testing. No nausea vomiting diarrhea rash or fevers. They have checked several times. Allergies and Home Medications Allergies Uncoded Allergies: TAPE (Allergy, Unknown, 05/18/16) Home Medications Albuterol Sulfate 2 Mg/5 Ml Syrup, 5 ML PO TID, (Reported) Albuterol Sulfate 2.5 Mg/3 Ml Vial.neb, 2.5 MG NEB Q6H PRN for SHORTNESS OF BREATH, (Reported) Albuterol Sulfate 1 Puff Puff, 1-2 PUFF IH Q6H PRN for SHORTNESS OF BREATH, ( Reported) 1 PUFF = 90 MCG Amoxicillin/Potassium Clav 1 Each Tablet, 875 MG PO BID WITH MEALS Prescribed by: CHRISTOPHER MATIAS on 05/09/18 1247 Arformoterol Tartrate 15 Mcg/2 Ml Vial.neb, 15 MCG NEB BID, (Reported) Budesonide 0.5 Mg/2 Ml Ampul.neb, 0.5 MG NEB BID, (Reported) Cetirizine HCl 1 Mg/1 Ml Solution, 10 ML PO DAILY, (Reported) Diphenhydramine HCl 12.5 Mg/5 Ml Liquid, 10 ML PO Q6H PRN for ITCHING, (Reported ) Diphenhydramine HCl/Zinc Acet 28.3 Gm Cream..g., TP Q8H PRN for ITCHING, ( Reported) Ergocalciferol (Vitamin D2) 50,000 Unit Capsule, 50,000 UNITS PO Fr, (Reported) Fluticasone Propionate 16 Gm Hellier.susp, 2 SPRAYS NS DAILY, (Reported) Guaifenesin/Dextromethorphan 5 Ml Syrup, 10 ML PO Q6H PRN for COUGH, (Reported) Hydrocortisone Acetate 28 Gm Oint...g., TP BID PRN for RASH, (Reported) 1% Ibuprofen 100 Mg/5 Ml Oral.susp, 30 ML PO Q6H PRN for PAIN-MILD OR TEMPATURE, ( Reported) Lorazepam 2 Mg/1 Ml Oral.conc, 0.25 ML PO DAILY PRN for ANXIETY, (Reported) TO BE USED PREMED FOR PROCEDURES AND DRTed EVANS. Mag Hydrox/Al Hydrox/Simeth 355 Ml Oral.susp, 15 ML PO Q6H PRN for GAS/ INDIGESTION, (Reported) Montelukast Sodium 5 Mg Tab.chew, 10 MG PO HS, (Reported) Neomycin/Polymyxin/Bacitracin 0.9 Gm Oint, TP BID PRN for CUTS, (Reported) Nystatin 15 Gm Powder, TOP BID PRN for RASH, (Reported) Nystatin 15 Gm Cream..g., TP BID, (Reported) Phenytoin 125 Mg/5 Ml Oral.susp, 5.6 ML PO TID, (Reported) Potassium Chloride 20 Meq Tab.er.prt, 20 MEQ PO TID, (Reported) Prednisone 5 Mg Tablet, 5 MG PO Q48H, (Reported) Prednisone 20 Mg Tab, 40 MG PO DAILY@0700 Prescribed by: CHRISTOPHER MATIAS on 05/09/18 0747 Sodium Chloride For Inhalation 3 Ml Vial.neb, 1 VIAL NEB Q4H PRN for SHORTNESS OF BREATH, (Reported) Tolnaftate 130 Gm Aero.powd, TP PER PACKAGING, (Reported) Patient Home Medication List Home Medication List Reviewed: Yes Review of Systems Review of Systems Constitutional: No chills, No fever; malaise; No weakness EENTM: No ear discharge, No ear pain Respiratory: see HPI, cough, orthopnea, phlegm, short of breath; No stridor; wheezing Cardiovascular: No chest pain, No edema Gastrointestinal: No abdominal pain, No constipation, No diarrhea, No nausea, No vomiting Genitourinary: No discharge, No dysuria Musculoskeletal: No back pain, No gout Past Wuxvkwq-Wqpwyn-Ptdtee Hx Patient Social History Alcohol Use: Denies Use Recreational Drug Use: No Smoking Status: Never a Smoker Recent Foreign Travel: No Contact w/Someone Who Travel: No Recent Hopitalizations: No Immunizations Up To Date Tetanus Booster (TDap): Unknown PED Vaccines UTD: No Date of Pneumonia Vaccine: Sep 15, 2014 Date of Influenza Vaccine: Mar 02, 2017 Seasonal Allergies Seasonal Allergies: Yes Past Medical History Surgeries: No Respiratory: Yes Asthma Cardiac: No Neurological: Yes (EPILEPSY, NEUROLOGICAL IMPAIRMENT, OBSTRUCTIVE HYDROCEPHALUS ) Developmental Disorder, Seizure Disorder Gastrointestinal: No Musculoskeletal: No Endocrine: No Psychosocial: Yes Anxiety Physical Exam Vital Signs - First Documented 08/29/18 15:10 Temp 96.9 Pulse 113 Resp 20 B/P (MAP) 147/126 (133) Pulse Ox 84 O2 Delivery Nasal Cannula O2 Flow Rate 2.00 Capillary Refill : Height: 5'1.00" Weight: 200lbs. 0.1oz. 90.839419jr; 35.1 BMI Method:Stated General Appearance: WD/WN, mild distress Eyes: Bilateral Eye Normal Inspection, Bilateral Eye PERRL, Bilateral Eye EOMI HEENT: PERRL/EOMI, TMs normal, pharynx normal, other (bilateral nasal congestion with clear rhinorrhea) Neck: non-tender, full range of motion, supple, normal inspection Respiratory: chest non-tender, respiratory distress (. Mild), decreased breath sounds, accessory muscle use (mild), rhonchi, wheezing Cardiovascular: normal peripheral pulses, regular rate, rhythm, no edema, tachycardia Gastrointestinal: normal bowel sounds, non tender, soft Extremities: non-tender, normal inspection, normal capillary refill Neurologic/Psychiatric: alert, normal mood/affect Skin: normal color, warm/dry Focused Exam Lactate Level 08/29/18 12:57: Lactic Acid Level 1.37 Lactic Acid Level Laboratory Tests Test 08/29/18 12:57 Lactic Acid Level 1.37 MMOL/L (0.50-2.00) Progress/Results/Core Measures Suspected Sepsis SIRS Temperature: Pulse: Respiratory Rate: Laboratory Tests 08/29/18 12:57: White Blood Count 9.4 Blood Pressure / Mean: 08/29/18 12:57: Lactic Acid Level 1.37 Laboratory Tests 08/29/18 12:57: Creatinine 0.78, INR Comment 1.0, Platelet Count 183, Total Bilirubin 0.3 Results/Orders Lab Results Laboratory Tests Test 08/29/18 12:57 08/29/18 15:34 Range/Units White Blood Count 9.4 4.3-11.0 10^3/uL Red Blood Count 4.56 4.35-5.85 10^6/uL Hemoglobin 14.0 13.3-17.7 G/DL Hematocrit 41 40-54 % Mean Corpuscular Volume 90 80-99 FL Mean Corpuscular Hemoglobin 31 25-34 PG Mean Corpuscular Hemoglobin Concent 34 32-36 G/DL Red Cell Distribution Width 13.2 10.0-14.5 % Platelet Count 183 130-400 10^3/uL Mean Platelet Volume 9.1 7.4-10.4 FL Neutrophils (%) (Auto) 77 H 42-75 % Lymphocytes (%) (Auto) 12 12-44 % Monocytes (%) (Auto) 9 0-12 % Eosinophils (%) (Auto) 1 0-10 % Basophils (%) (Auto) 1 0-10 % Neutrophils # (Auto) 7.2 1.8-7.8 X 10^3 Lymphocytes # (Auto) 1.2 1.0-4.0 X 10^3 Monocytes # (Auto) 0.9 0.0-1.0 X 10^3 Eosinophils # (Auto) 0.1 0.0-0.3 10^3/uL Basophils # (Auto) 0.1 0.0-0.1 10^3/uL Prothrombin Time 13.6 12.2-14.7 SEC INR Comment 1.0 0.8-1.4 Activated Partial Thromboplast Time 32 24-35 SEC Sodium Level 139 135-145 MMOL/L Potassium Level 4.1 3.6-5.0 MMOL/L Chloride Level 101 98-107 MMOL/L Carbon Dioxide Level 27 21-32 MMOL/L Anion Gap 11 5-14 MMOL/L Blood Urea Nitrogen 12 7-18 MG/DL Creatinine 0.78 0.60-1.30 MG/DL Estimat Glomerular Filtration Rate > 60 BUN/Creatinine Ratio 15 Glucose Level 98 70-105 MG/DL Lactic Acid Level 1.37 0.50-2.00 MMOL/L Calcium Level 8.8 8.5-10.1 MG/DL Corrected Calcium 8.8 8.5-10.1 MG/DL Total Bilirubin 0.3 0.1-1.0 MG/DL Aspartate Amino Transf (AST/SGOT) 20 5-34 U/L Alanine Aminotransferase (ALT/SGPT) 21 0-55 U/L Alkaline Phosphatase 88 40-136 U/L B-Type Natriuretic Peptide 44.9 <100.0 PG/ML Total Protein 7.1 6.4-8.2 GM/DL Albumin 4.0 3.2-4.5 GM/DL Blood Gas Puncture Site RIGHT RADIAL Blood Gas Patient Temperature 96.9 Arterial Blood pH 7.43 7.37-7.43 Arterial Blood Partial Pressure CO2 44 35-45 MMHG Arterial Blood Partial Pressure O2 66 L 79-93 MMHG Arterial Blood HCO3 29 H 23-27 MMOL/L Arterial Blood Total CO2 30.6 21.0-31.0 MMOL/L Arterial Blood Oxygen Saturation 95 94-100 % Arterial Blood Base Excess 4.8 H -2.5-2.5 MMOL/L Javier Test POSITIVE Blood Gas Ventilator Setting NO Blood Gas Inspired Oxygen 3L Micro Results Microbiology 08/29/18 Influenza Types A,B Antigen (CHRIS) - Final, Complete My Orders Orders - CIPRIANO JOLLY Ipratropium 0.02% Neb Solution (Atrovent (08/29/18 15:22) Albuterol Pre-Mix Nebs (Rt) (Proventil (08/29/18 15:22) Cbc With Automated Diff (08/29/18 15:21) Comprehensive Metabolic Panel (08/29/18 15:21) Blood Culture (08/29/18 15:21) Sputum Culture (08/29/18 15:21) Urinalysis (08/29/18 15:21) Urine Culture (08/29/18 15:21) Protime With Inr (08/29/18 15:21) Partial Thromboplastin Time (08/29/18 15:21) Chest 1 View, Ap/Pa Only (08/29/18 15:21) Saline Lock/Iv-Start (08/29/18 15:21) Saline Lock/Iv-Start (08/29/18 15:21) Vital Signs Adult Sepsis Patie Q15M (08/29/18 15:21) O2 (08/29/18 15:21) Remove Rings In Anticipation O (08/29/18 15:21) Lactic Acid Analyzer (08/29/18 15:21) Influenza A And B Antigens (08/29/18 15:21) Ns Iv 1000 Ml (Sodium Chloride 0.9%) (08/29/18 15:21) Ceftriaxone For Iv Use (Rocephin For I (08/29/18 15:30) Azithromycin Injection (Zithromax Inject (08/29/18 15:30) Albuterol Pre-Mix Nebs (Rt) (Proventil (08/29/18 15:21) Albuterol/Ipra Inhalation Soln (Duoneb I (08/29/18 15:30) Saline Lock/Iv-Start (08/29/18 15:21) Ns Iv 500 Ml (Sodium Chloride 0.9%) (08/29/18 15:21) Svn Small Volume Nebulizer (08/29/18 15:21) Arterial Blood Gas (08/29/18 15:34) BNP (08/29/18 15:31) Lorazepam Tablet (Ativan Tablet) (08/29/18 15:53) Arterial Blood Draw (08/29/18 ) Medications Given in ED Current Medications Medications Dose Ordered Sig/Flaquita Route Start Time Stop Time Status Last Admin Dose Admin Azithromycin 500 mg/Sodium Chloride 250 ml @ 250 mls/hr ONCE ONCE IV 08/29/18 15:30 08/29/18 16:29 DC 08/29/18 16:20 250 MLS/HR Ipratropium [place] 0.5 mg STK-MED ONCE IH 08/29/18 15:22 08/29/18 15:24 DC 08/29/18 15:37 0.5 MG Vital Signs/I&O 08/29/18 08/29/18 08/29/18 15:10 15:10 15:43 Temp 96.9 Pulse 113 Resp 20 B/P (MAP) 147/126 (133) Pulse Ox 84 94 O2 Delivery Nasal Cannula Room Air Nasal Cannula O2 Flow Rate 2.00 3.00 Capillary Refill : Progress Note : Time: 15:30 Progress Note The patient is tachycardic around 103 and he just received a breathing treatment but we'll go ahead and do a septic workup obtain influenza swab and gave him a 2 L bolus based on ideal body weight of 140 pounds. His BMI is approximately 33. Weight was obtained in the clinic today before coming here in the 176 pounds he is usually 190 pounds per their records. His abdomen is soft, nontender and he has denied any nausea or vomiting. Plan to give him an hour- long breathing treatment with DuoNeb and 15 mg of albuterol. Obtain an ABG if possible. Chest x-ray etc. Diagnostic Imaging Diagonstic Imaging: Xray Plain Films/CT/US/NM/MRI: chest (1 view) Comments No acute findings on one view chest x-ray. [facility]. [place], [place] NAME: YA [facility]OMLINSON [facility] REC#: [id number] PT STATUS: REG ER : 1970 PHYSICIAN: CIPRIANO JOLLY MD ADMIT DATE: 08/29/18/ER Draft Date of Exam:08/29/18 CHEST 1 VIEW, AP/PA ONLY INDICATION: Hypoxia. COMPARISON: 05/08/2018. FINDINGS: Single frontal radiographic view of the chest was obtained and demonstrates normal cardiac silhouette. There does, however, appear to be mild or rzlh-jd-dlxaaxll pulmonary vascular congestion. Lungs are clear. There is no focal consolidation, large effusion, nor pneumothorax. Bony structures show no gross acute abnormalities. IMPRESSION: 1. Pulmonary vascular congestion. 2. No evidence of infiltrate. Dictated on workstation # [id number] Dict: 08/29/18 1625 Trans: 08/29/18 1627 [id number] Interpreted by: PASTORA RAHMAN MD Electronically signed by: Reviewed: Reviewed by Me Departure Communication (Admissions) Time/Spoke to Admitting Phy: 16:40 Dr. Diaz and agrees to observe the patient overnight and would like to consult Dr. Kincaid, Pulmonology to discuss potential antibiotics, steroids. Time/Spoke to Consulting Phy: 16:45 Dr. Kincaid, Pulmonology agrees to consult on the case and would like Solu- Medrol 40 mg IV every 6 hours. He would hold off any further antibiotics but agrees with the chest x-ray observation. Impression Primary Impression: Asthma exacerbation Qualified Codes: J45.901 - Unspecified asthma with (acute) exacerbation Additional Impression: Hypoxemia Disposition: 09 ADMITTED INPATIENT Condition: Improved Admissions Decision to Admit Reason: Admit from ER (General) Decision to Admit/Date: Aug 29, 2018 Time/Decision to Admit Time: 16:26 Departure-Patient Inst. Referrals: NICOLETTE NAPIER MD (PCP) Primary Care Physician ADAMA MAI (Family) Primary Care Physician CIPRIANO JOLLY Aug 29, 2018 15:26
[2018-08-29] MEDS ORDERED: AZITHROMYCIN INJECTION 500 MG in NS (IVPB) 250 ML IV ONE (15:30)
[2018-08-29] MEDS ORDERED: RT-ALBUTEROL/IPRATROPIUM 3 ML (DUONEB) VIAL INH ONE (15:30)
[2018-08-29] MEDS ORDERED: cefTRIAXone FOR IV USE 1,000 MG in WATER (STERILE) FOR INJECTION 10 ML IV ONE (15:30)
[2018-08-29 15:37] LABS: BASOPHILS # (AUTO) 0.1 10^3/uL (0.0-0.1); BASOPHILS % (AUTO) 1 % (0-10); EOSINOPHILS # (AUTO) 0.1 10^3/uL (0.0-0.3); EOSINOPHILS % (AUTO) 1 % (0-10); HEMATOCRIT 41 % (40-54); LYMPHOCYTES # (AUTO) 1.2 X 10^3 (1.0-4.0); LYMPHOCYTES % (AUTO) 12 % (12-44); MEAN CORPUSCULAR HEMOGLOBIN 31 PG (25-34); MEAN CORPUSCULAR HGB CONC 34 G/DL (32-36); MEAN CORPUSCULAR VOLUME 90 FL (80-99); MEAN PLATELET VOLUME 9.1 FL (7.4-10.4); MONOCYTES # (AUTO) 0.9 X 10^3 (0.0-1.0); MONOCYTES % (AUTO) 9 % (0-12); NEUTROPHILS # (AUTO) 7.2 X 10^3 (1.8-7.8); NEUTROPHILS % (AUTO) 77 % (42-75); PLATELET COUNT 183 10^3/uL (130-400); RED CELL DISTRIBUTION WIDTH 13.2 % (10.0-14.5); WHITE BLOOD COUNT 9.4 10^3/uL (4.3-11.0)
--- NOTE | 2018-08-29 15:40 | NUR ---
RT STARTING HOUR LONG TREATMENT.
--- NOTE | 2018-08-29 15:45 | NUR ---
PT REFUSING LAB TO DRAW BLOOD CULTURES.
[2018-08-29 15:48] LABS: ABG BASE EXCESS 4.8 MMOL/L (-2.5-2.5); ABG OXYGEN SATURATION 95 % (94-100); ABG PCO2 44 MMHG (35-45); ABG PH 7.43 (7.37-7.43); ABG PO2 66 MMHG (79-93); ABG TCO2 30.6 MMOL/L (21.0-31.0)
[2018-08-29 15:48] LABS: PROTHROMBIN TIME PATIENT 13.6 SEC (12.2-14.7)
[2018-08-29 15:50] LABS: ALLENS TEST POSITIVE; INSPIRED O2 3L; PATIENT TEMP 96.9; VENTILATOR NO
[2018-08-29] MEDS ORDERED: LORazepam 0.5 MG (ATIVAN) TABLET PO STA (15:53)
[2018-08-29 15:57] LABS: ALANINE AMINOTRANSFERASE 21 U/L (0-55); ALKALINE PHOSPHATASE 88 U/L (40-136); BILIRUBIN,TOTAL 0.3 MG/DL (0.1-1.0); BUN/CREATININE RATIO 15; CALCIUM 8.8 MG/DL (8.5-10.1); CARBON DIOXIDE 27 MMOL/L (21-32); CHLORIDE 101 MMOL/L (98-107); CREATININE SERUM 0.78 MG/DL (0.60-1.30); GFR ESTIMATED > 60; GLUCOSE 98 MG/DL (70-105); POTASSIUM 4.1 MMOL/L (3.6-5.0); SODIUM 139 MMOL/L (135-145); TOTAL PROTEIN 7.1 GM/DL (6.4-8.2)
--- NOTE | 2018-08-29 16:08 | NUR ---
PT NOT WANTING X-RAY ET TELLING STAFF TO GET OUT OF THE ROOM. DR NOTIFIED WHO WENT IN TO HELP XRAY.
--- NOTE | 2018-08-29 16:20 | NUR ---
DR JOLLY OK WITH NOT GETTING THE 2ND BLOOD CULTURE DUE TO PT NOT WANTING IT DONE ET DR STATES TO START THE ABX.
--- NOTE | 2018-08-29 16:28 | Diagnostic Imaging Report ---
INDICATION: Hypoxia. COMPARISON: 05/08/2018. FINDINGS: Single frontal radiographic view of the chest was obtained and demonstrates normal cardiac silhouette. There does, however, appear to be mild or gbmz-gf-hkcdkiib pulmonary vascular congestion. Lungs are clear. There is no focal consolidation, large effusion, nor pneumothorax. Bony structures show no gross acute abnormalities. IMPRESSION: 1. Pulmonary vascular congestion. 2. No evidence of infiltrate. Dictated by: Dictated on workstation # [id number]
--- OUTSIDE RECORDS SUMMARY | 2018-08-29 16:53 | XMS REPORT | Clinical Summary ---
Author Author [facility] Organization [facility] Address Unknown Phone Unavailable Care Team Providers Care Screen Print Operator Name Role Phone PCP Unavailable Source Comments Some departments are not documenting in the electronic medical record. If you do not see the information that you expected, contact Release of Information in the Health Information Management department at [phone] for further assistance in locating additional records.[facility] Allergies Comments Active Allergy Reactions Severity Noted [...] Inhaled Oxygen - Concentration 08/13/2016 9:45 AM [employer] Weight 86.6 kg (191 lb) 08/13/2016 9:45 AM [employer] Height 154.9 cm (5' 1") 08/13/2016 9:45 AM [employer] Body Mass Index 36.09 Plan of Treatment Health Maintenance Due Date Last Done Comments PHYSICAL (COMPREHENSIVE) 1977 EXAM HIV SCREENING 1985 DTAP/TDAP VACCINES (1 - 1988 Tdap) INFLUENZA VACCINE 01/05/2018 Results Not on filefrom Last 3 Months
[2018-08-29] MEDS ORDERED: methylPREDNISolone 40 MG/ML (Solu-MEDROL) VIAL IV ONE (17:00)
--- NOTE | 2018-08-29 17:01 | NUR ---
ATTEMPT TO CALL REPORT ET NURSE IS WITH ANOTHER PT AND WILL CALL BACK.
[2018-08-29 17:48] VITALS: BP 122/67
[2018-08-29 17:53] VITALS: BP 122/67
[2018-08-29] MEDS ORDERED: ONDANSETRON 4 MG/2 ML (SDV) Z0FRAN IV PRN (18:15)
[2018-08-29] MEDS ORDERED: ACETAMINOPHEN 500 MG TAB (TYLENOL) PO PRN (18:15)
[2018-08-29] MEDS ORDERED: IBUPROFEN 800 MG (MOTRIN) TAB PO PRN (18:15)
[2018-08-29] MEDS ORDERED: NS IV 1000 ML 1,000 ML ONE (18:22)
[2018-08-29] MEDS ORDERED: cefTRIAXone 1,000 MG IV (ROCEPHIN) VIAL ONE (18:23)
[2018-08-29] MEDS ORDERED: WATER (STERILE) FOR INJECTION 10 ML ONE (18:24)
[2018-08-29] MEDS ORDERED: FLU QUADRIvalent (5+ YOA) 2018-2019 (AFLURIA) 0.5 ML IM ONE (18:30)
[2018-08-29] MEDS ORDERED: CATHETER FLUSH 10 ML SYR IV PRN (18:30)
[2018-08-29] MEDS ORDERED: BUDE10.2 IH (18:51)
[2018-08-29] MEDS ORDERED: PRED5TAB PO (18:51)
[2018-08-29 19:05] VITALS: BP 111/75
[2018-08-29] MEDS ORDERED: MAG HYDROX PO PRN (20:00)
[2018-08-29] MEDS ORDERED: diphenhydrAMINE 12.5 MG/5 ML UDC (BENADRYL) PO PRN (20:00)
[2018-08-29] MEDS ORDERED: LORAZEPAM PO PRN (20:00)
[2018-08-29] MEDS ORDERED: SIMETH PO PRN (20:00)
[2018-08-29] MEDS ORDERED: AL HYDROX PO PRN (20:00)
[2018-08-29] MEDS ORDERED: IBUPROFEN PO PRN (20:00)
[2018-08-29] MEDS ORDERED: NON-FORMULARY MEDICATION 1 EA EA (Guaifenesin/Dextromethorphan (Guaifenesin Dm Syrup) 10 M PO PRN (20:00)
[2018-08-29] MEDS ORDERED: IBUPROFEN SUSP 100MG/5ML (MOTRIN) UDC PO PRN (20:15)
[2018-08-29] MEDS ORDERED: LORazepam ORAL CONCENTRATE 2 MG/ML 30 ML (ATIVAN) PO PRN ×2 (20:15)
[2018-08-29] MEDS ORDERED: ANTACID SUSP 30 ML UDC (MYLANTA) PO PRN ×2 (20:15)
[2018-08-29] MEDS: ARFORMOTEROL 15 MCG/2 ML (BROVANA) INH SOLUTIION IH SCH (20:16)
[2018-08-29] MEDS: KCL 20 MEQ TAB (K-DUR) PO SCH (20:21)
[2018-08-29] MEDS: NYSTATIN CREAM (MYCOSTATIN) 30 GM TUBE TP SCH (20:21)
[2018-08-29] MEDS: PHENYTOIN ORAL SUSPENSION 125 MG/5 ML UDC PO SCH (20:22)
[2018-08-29] MEDS ORDERED: PHENYTOIN PO SCH (21:00)
[2018-08-29] MEDS ORDERED: MONTELUKAST CHEW 5 MG (SINGULAIR) TAB PO SCH (21:00)
[2018-08-29] MEDS ORDERED: RT-BUDESONIDE NEBS 0.5 MG/2ML (PULMICORT) AMP INH SCH (21:00)
[2018-08-29] MEDS ORDERED: NON-FORMULARY MEDICATION 1 EA EA (Budesonide 0.5 MG) NEB SCH (21:00)
[2018-08-29] MEDS ORDERED: KCL 20 MEQ TAB (K-DUR) PO SCH (21:00)
[2018-08-29] MEDS: LORazepam 1 MG (ATIVAN) TAB PO SCH (21:37)
[2018-08-29] MEDS: LACTATED RINGERS 1,000 ML IV SCH (22:00)
[2018-08-29] MEDS: RT-ALBUTEROL SULF 2.5 MG/3 ML PRE-MIX VIAL INH SCH (22:13)
[2018-08-30] MEDS: methylPREDNISolone 40 MG/ML (Solu-MEDROL) VIAL IV SCH ×4 (00:06→19:41)
[2018-08-30 00:19] VITALS: BP 98/58
[2018-08-30] MEDS: LACTATED RINGERS 1,000 ML IV SCH ×2 (00:56→04:09)
[2018-08-30] MEDS: RT-ALBUTEROL SULF 2.5 MG/3 ML PRE-MIX VIAL INH SCH ×4 (02:56→19:52)
[2018-08-30 04:45] VITALS: BP 103/67
[2018-08-30 06:09] LABS: BASOPHILS % (AUTO) 0 % (0-10); EOSINOPHILS % (AUTO) 0 % (0-10); HEMATOCRIT 37 % (40-54); HEMOGLOBIN 12.2 G/DL (13.3-17.7); LYMPHOCYTES # (AUTO) 0.7 X 10^3 (1.0-4.0); LYMPHOCYTES % (AUTO) 14 % (12-44); MEAN CORPUSCULAR HEMOGLOBIN 31 PG (25-34); MEAN CORPUSCULAR HGB CONC 33 G/DL (32-36); MEAN CORPUSCULAR VOLUME 92 FL (80-99); MONOCYTES # (AUTO) 0.4 X 10^3 (0.0-1.0); MONOCYTES % (AUTO) 8 % (0-12); NEUTROPHILS # (AUTO) 3.9 X 10^3 (1.8-7.8); NEUTROPHILS % (AUTO) 77 % (42-75); PLATELET COUNT 168 10^3/uL (130-400); RED CELL DISTRIBUTION WIDTH 13.3 % (10.0-14.5); WHITE BLOOD COUNT 5.1 10^3/uL (4.3-11.0)
[2018-08-30 06:29] LABS: BUN/CREATININE RATIO 16; CARBON DIOXIDE 26 MMOL/L (21-32); CHLORIDE 107 MMOL/L (98-107); CREATININE SERUM 0.73 MG/DL (0.60-1.30); GFR ESTIMATED > 60; GLUCOSE 101 MG/DL (70-105); POTASSIUM 4.1 MMOL/L (3.6-5.0); SODIUM 140 MMOL/L (135-145)
[2018-08-30] MEDS: PHENYTOIN ORAL SUSPENSION 125 MG/5 ML UDC PO SCH ×3 (06:54→20:34)
[2018-08-30] MEDS: KCL 20 MEQ TAB (K-DUR) PO SCH (06:54)
--- NOTE | 2018-08-30 07:05 | Pulmonary Consultation ---
History of Present Illness History of Present Illness Date of Consultation 08/30/18 06:54 Time Seen by Provider: 06:54 Date of Admission History of Present Illness 48yo with hx of asthma, morbid obesity, KURTIS (CPAP intolerant) and MR presented to ED secondary to worsening SOB, wheezing, and coughing. Pt has recently been exposed to influenza however pt's influenza swab was negative in ED. Allergies and Home Medications Allergies Uncoded Allergies: TAPE (Allergy, Unknown, 05/18/16) Home Medications Albuterol Sulfate 2 Mg/5 Ml Syrup, 5 ML PO TID, (Reported) Albuterol Sulfate 2.5 Mg/3 Ml Vial.neb, 2.5 MG NEB Q6H PRN for SHORTNESS OF BREATH, (Reported) Arformoterol Tartrate 15 Mcg/2 Ml Vial.neb, 15 MCG NEB BID, (Reported) Budesonide 0.5 Mg/2 Ml Ampul.neb, 0.5 MG NEB BID, (Reported) Budesonide/Formoterol Fumarate 10.2 Gm Hfa.aer.ad, 2 PUFF IH BID, (Reported) Cetirizine HCl 1 Mg/1 Ml Solution, 10 ML PO DAILY, (Reported) Diphenhydramine HCl 12.5 Mg/5 Ml Liquid, 10 ML PO Q6H PRN for ITCHING, (Reported ) Diphenhydramine HCl/Zinc Acet 28.3 Gm Cream..g., TP Q8H PRN for ITCHING, ( Reported) Ergocalciferol (Vitamin D2) 50,000 Unit Capsule, 50,000 UNITS PO Fr, (Reported) Fluticasone Propionate 16 Gm Colstrip.susp, 2 SPRAYS NS DAILY, (Reported) Guaifenesin/Dextromethorphan 5 Ml Syrup, 10 ML PO Q6H PRN for COUGH, (Reported) Hydrocortisone Acetate 28 Gm Oint...g., TP BID PRN for RASH, (Reported) 1% Ibuprofen 100 Mg/5 Ml Oral.susp, 30 ML PO Q6H PRN for PAIN-MILD OR TEMPATURE, ( Reported) Lorazepam 2 Mg/1 Ml Oral.conc, 0.25 ML PO DAILY PRN for ANXIETY, (Reported) TO BE USED PREMED FOR PROCEDURES AND DR. EVANS. Mag Hydrox/Al Hydrox/Simeth 355 Ml Oral.susp, 15 ML PO Q6H PRN for GAS/ INDIGESTION, (Reported) Montelukast Sodium 5 Mg Tab.chew, 10 MG PO HS, (Reported) Neomycin/Polymyxin/Bacitracin 0.9 Gm Oint, TP BID PRN for CUTS, (Reported) Nystatin 15 Gm Cream..g., TP BID, (Reported) Phenytoin 125 Mg/5 Ml Oral.susp, 5.6 ML PO TID, (Reported) Potassium Chloride 20 Meq Tab.er.prt, 20 MEQ PO TID, (Reported) Prednisone 5 Mg Tablet, 5 MG PO DAILY, (Reported) Past Crzlovt-Pjtuzg-Kwvlil Hx Patient Social History Alcohol Use: Denies Use Recreational Drug Use: No Smoking Status: Never a Smoker Recent Foreign Travel: No Contact w/Someone Who Travel: No Recent Infectious Disease Expo: No Recent Hopitalizations: No Immunizations Up To Date Tetanus Booster (TDap): Unknown PED Vaccines UTD: No Date of Pneumonia Vaccine: Sep 15, 2014 Date of Influenza Vaccine: May 09, 2018 Seasonal Allergies Seasonal Allergies: Yes Past Medical History Surgeries: No Respiratory: Yes Asthma Cardiac: No Neurological: Yes (EPILEPSY, NEUROLOGICAL IMPAIRMENT, OBSTRUCTIVE HYDROCEPHALUS ) Developmental Disorder, Seizure Disorder Gastrointestinal: No Musculoskeletal: No Endocrine: No HEENT: No Cancer: No Psychosocial: Yes Anxiety Integumentary: No Sepsis Event Evaluation Height, Weight, BMI Height: 5'1.00" Weight: 175lbs. 0.0oz. 79.345381yg; 33.1 BMI Method:Stated Exam Exam Vital Signs Date Time Temp Pulse Resp B/P (MAP) Pulse Ox O2 Delivery O2 Flow Rate FiO2 08/30/18 04:45 97.8 83 18 103/67 (79) 96 Nasal Cannula 4.00 08/30/18 02:59 89 OxyMask 3.00 08/30/18 01:49 90 Room Air 08/30/18 00:19 97.1 86 18 98/58 (71) 90 Nasal Cannula 3.00 08/29/18 22:23 Nasal Cannula 3.00 08/29/18 20:20 90 93 32 08/29/18 20:06 91 Nasal Cannula 3.00 08/29/18 20:00 91 Nasal Cannula 3.00 08/29/18 19:05 96.9 95 16 111/75 (87) 95 Nasal Cannula 3.00 08/29/18 18:00 Nasal Cannula 2.00 08/29/18 17:53 97.0 98 16 122/67 (85) 92 Nasal Cannula 3.00 08/29/18 17:48 97.0 98 16 122/67 92 Nasal Cannula 3.00 08/29/18 17:20 98.0 93 16 124/68 (86) 94 Nasal Cannula 2.00 08/29/18 15:43 94 Nasal Cannula 3.00 08/29/18 15:10 96.9 113 20 147/126 (133) 84 Room Air 08/29/18 15:10 Nasal Cannula 2.00 I & O 08/30/18 07:00 Intake Total 290 ml Balance 290 ml Height & Weight Height: 5'1.00" Weight: 175lbs. 0.0oz. 79.456463jj; 33.1 BMI Method:Stated Capillary Refill: Less Than 3 Seconds Gastrointestinal: normal bowel sounds, non tender, soft Results Lab Laboratory Tests 08/29/18 12:57 08/30/18 05:47 Assessment/Plan Assessment/Plan AsthmaAE -Continue SVN, steroids -Add Pulmicort HX of MR Hx of morbid obesity with severe KURTIS (noncompliant with CPAP therapy) MICHAEL VALVERDE DO Aug 30, 2018 07:05
[2018-08-30 08:00] VITALS: BP 111/74
[2018-08-30] MEDS ORDERED: CETIRIZINE HCL PO SCH (09:00)
[2018-08-30] MEDS ORDERED: LORATADINE 5 MG/5 ML SOLN (CLARITIN) UDC PO SCH (09:00)
[2018-08-30] MEDS: LORazepam 1 MG (ATIVAN) TAB PO SCH ×2 (09:12→20:29)
[2018-08-30] MEDS: ARFORMOTEROL 15 MCG/2 ML (BROVANA) INH SOLUTIION IH SCH ×3 (09:21→19:52)
--- NOTE | 2018-08-30 09:22 | NUR ---
TOOK OWN FROM HOME BY YESENIA
[2018-08-30] MEDS ORDERED: PATIENT MAY USE OWN MEDS, ALL MC SCH (09:30)
[2018-08-30] MEDS: RT-BUDESONIDE NEBS 0.5 MG/2ML (PULMICORT) AMP INH SCH ×2 (09:44→19:51)
--- NOTE | 2018-08-30 10:02 | History & Physical-Hospitalist ---
History of Present Illness HPI/Chief Complaint Chief complaint" Dyspnea with wheezing. HPI: This is a 48yoWM mentally challenged, who knows Dr. Kincaid as an outpatient who lives in a senior care that was sent to the ER with exacerbation of asthma. His automatic fabric cutter is at the bedside. Pt refuses an exam from me and he does have a great deal of behaviors so I have restarted all his home medications to minimize that. We will continue IV steroids and discharge back to the senior care tomorrow. Date Seen 08/30/18 Time Seen by a Provider: 09:15 Attending Physician Daly Cabrera Pankaj K MD Referring Physician Date of Admission Aug 29, 2018 at 16:30 Home Medications & Allergies Home Medications Reviewed patient Home Medication Reconciliation performed by pharmacy medication reconciliations dental technician metal and/or nursing. Patients Allergies have been reviewed. Allergies Allergies Uncoded Allergies TAPE ( Allergy, Unknown, 05/18/16) Past Skjfano-Avipku-Zrrpkg Hx Past Med/Social Hx: Reviewed Nursing Past Med/Soc Hx, Reviewed and Corrections made Patient Social History Marrital Status: single Alcohol Use: Denies Use Recreational Drug Use: No Smoking Status: Never a Smoker Recent Foreign Travel: No Contact w/other who traveled: No Recent Hopitalizations: No Recent Infectious Disease Expo: No Immunizations Up To Date Tetanus Booster (TDap): Unknown Pediatric: No Date of Pneumonia Vaccine: Sep 15, 2014 Date of Influenza Vaccine: May 09, 2018 Seasonal Allergies Seasonal Allergies: Yes Past Medical History Respiratory: COPD Neurological: Developmental Disorder, Seizure Disorder Psychosocial: Anxiety Review of Systems Constitutional: see HPI Physical Exam Physical Exam Vital Signs Vital Signs - First Documented 08/29/18 08/29/18 15:10 20:20 Temp 96.9 Pulse 113 Resp 20 B/P (MAP) 147/126 (133) Pulse Ox 84 O2 Delivery Nasal Cannula O2 Flow Rate 2.00 FiO2 32 Capillary Refill : Less Than 3 Seconds Height, Weight, BMI Height: 5'1.00" Weight: 186lbs. 8.0oz. 84.706296zo; 33.1 BMI Method:Stated General Appearance: No Apparent Distress, Other (refuses to allow me to examine him) Results Results/Procedures Labs Laboratory Tests 08/29/18 12:57 08/30/18 05:47 Patient resulted labs reviewed. Assessment/Plan Admission Diagnosis Assessment: AE Asthma Mental retardation Behavior problems Plan: IV steroids O2 Nebs Admission Status: Observation Diagnosis/Problems Diagnosis/Problems (1) Asthma Status: Chronic Qualifiers: Asthma severity: moderate Asthma persistence: persistent Asthma complication type: with status asthmaticus Qualified Codes: J45.42 - Moderate persistent asthma with status asthmaticus (2) Mentally challenged Status: Chronic (3) Seizure disorder Status: Chronic Clinical Quality Measures DVT/VTE Risk/Contraindication: Risk Factor Score Per Nursin RFS Level Per Nursing on Admit: 2=Moderate DALY CABRERA DO Aug 30, 2018 10:01
--- NOTE | 2018-08-30 11:20 | Diagnostic Imaging Report ---
CLINICAL INDICATION: Patient asthma exacerbation. EXAM: Portable chest x-ray upright view. COMPARISONS: Chest x-ray dated 08/29/2018. FINDINGS: Lungs/pleura: Lungs are clear. There is no pneumothorax. There is no pleural effusion. Mediastinum: Unremarkable. Pulmonary vasculature: Unremarkable. Heart: Unremarkable. Bones/extrathoracic soft tissue: There are mildly hypertrophic spurs involving the thoracic spine. IMPRESSION: There is no radiographic evidence of acute cardiopulmonary process. Dictated by: Dictated on workstation # [id number]
[2018-08-30] MEDS: guaiFENesin/DM (ROBITUSSIN DM) 10 ML UDC PO PRN (11:44)
--- NOTE | 2018-08-30 11:59 | NUR ---
COUGHING LOOSE NON-PRODUCTIVE COUGH FREQ. SOPHYITUSSIN DM COUGH SYRUP GIVEN. TAKING FLUIDS WELL.
[2018-08-30 12:00] VITALS: BP 113/73
[2018-08-30] MEDS: FLUTICASONE NASAL SPRAY (FLONASE) 16 GM BTL NS SCH (13:55)
[2018-08-30] MEDS: NYSTATIN CREAM (MYCOSTATIN) 30 GM TUBE TP SCH ×2 (13:55→20:32)
[2018-08-30] MEDS: KCL 20 MEQ POWDER FOR ORAL SOLUTION PO SCH ×2 (13:56→19:43)
--- NOTE | 2018-08-30 14:00 | NUR ---
Pastoral care visit.
[2018-08-30 15:56] VITALS: BP 112/71
[2018-08-30 19:39] VITALS: BP 103/71
[2018-08-30] MEDS: CATHETER FLUSH 10 ML SYR IV SCH ×2 (19:41→20:34)
[2018-08-30] MEDS: MONTELUKAST CHEW 5 MG (SINGULAIR) TAB PO SCH (20:30)
[2018-08-31 00:22] VITALS: BP 106/56
[2018-08-31] MEDS: methylPREDNISolone 40 MG/ML (Solu-MEDROL) VIAL IV SCH ×3 (00:52→11:37)
[2018-08-31] MEDS: RT-ALBUTEROL SULF 2.5 MG/3 ML PRE-MIX VIAL INH SCH ×4 (02:38→20:01)
[2018-08-31 04:00] VITALS: BP 111/71
[2018-08-31] MEDS: PHENYTOIN ORAL SUSPENSION 125 MG/5 ML UDC PO SCH ×3 (06:36→21:13)
[2018-08-31] MEDS: CATHETER FLUSH 10 ML SYR IV SCH ×3 (06:36→21:13)
--- NOTE | 2018-08-31 06:45 | Pulmonary Progress Note ---
Subjective Time Seen by a Provider: 07:52 Subjective/Events-last exam Pt is having persistent coughing. Nonproductive. Sepsis Event Evaluation Height, Weight, BMI Height: 5'1.00" Weight: 189lbs. 8.0oz. 85.253897mx; 33.1 BMI Method:Stated Focused Exam Lactate Level 08/29/18 12:57: Lactic Acid Level 1.37 Exam Exam Vital Signs Date Time Temp Pulse Resp B/P (MAP) Pulse Ox O2 Delivery O2 Flow Rate FiO2 08/31/18 04:00 98.1 86 20 111/71 (84) 99 Nasal Cannula 4.00 08/31/18 02:41 Nasal Cannula 3.00 08/31/18 00:22 98.4 75 18 106/56 (73) 92 Nasal Cannula 4.00 08/30/18 20:00 93 Nasal Cannula 3.00 08/30/18 19:55 94 Nasal Cannula 3.00 08/30/18 19:39 96.1 78 16 103/71 (82) 95 Nasal Cannula 4.00 08/30/18 15:56 97.8 86 16 112/71 (85) 95 Nasal Cannula 3.50 08/30/18 12:00 97.6 88 20 113/73 (86) 95 Nasal Cannula 4.00 08/30/18 09:53 92 08/30/18 09:47 98 08/30/18 09:41 93 Nasal Cannula 3.00 08/30/18 08:00 98.2 81 20 111/74 (86) 95 Nasal Cannula 4.00 08/30/18 08:00 93 Nasal Cannula 3.00 I & O 08/31/18 07:00 Intake Total 4080 ml Balance 4080 ml Height & Weight Height: 5'1.00" Weight: 189lbs. 8.0oz. 85.668896bs; 33.1 BMI Method:Stated General Appearance: No Apparent Distress, Other (refuses to allow me to examine him) Capillary Refill: Less Than 3 Seconds Gastrointestinal: normal bowel sounds, non tender, soft Results Lab Laboratory Tests 08/29/18 12:57 08/30/18 05:47 Assessment/Plan Assessment/Plan AsthmaAE -Continue SVN, steroids -Add Pulmicort HX of MR Hx of morbid obesity with severe KURTIS (noncompliant with CPAP therapy) MICHAEL VALVERDE DO Aug 31, 2018 06:45
[2018-08-31] MEDS: KCL 20 MEQ POWDER FOR ORAL SOLUTION PO SCH ×3 (06:58→18:05)
[2018-08-31 08:00] VITALS: BP 133/75
[2018-08-31] MEDS ORDERED: NYST1POW22 TOP (09:05)
[2018-08-31] MEDS ORDERED: [UNRECOGNIZED DRUG - CODE] TP (09:05)
[2018-08-31] MEDS ORDERED: POTA20PA28 PO (09:05)
[2018-08-31] MEDS ORDERED: SODI3VIA NEB (09:05)
[2018-08-31] MEDS ORDERED: ALBU2.5V4 NEB (09:05)
--- NOTE | 2018-08-31 09:08 | NUR ---
REVIEWED MED REC WITH MAR FROM [facility].
[2018-08-31] MEDS: CETIRIZINE 1 MG/ML PO SCH (09:25)
[2018-08-31] MEDS: FLUTICASONE NASAL SPRAY (FLONASE) 16 GM BTL NS SCH (09:26)
[2018-08-31] MEDS: NYSTATIN CREAM (MYCOSTATIN) 30 GM TUBE TP SCH ×2 (09:27→21:13)
[2018-08-31] MEDS: LORazepam 1 MG (ATIVAN) TAB PO SCH ×2 (09:30→21:13)
[2018-08-31] MEDS: ARFORMOTEROL 15 MCG/2 ML (BROVANA) INH SOLUTIION IH SCH ×2 (10:18→20:11)
[2018-08-31] MEDS: RT-BUDESONIDE NEBS 0.5 MG/2ML (PULMICORT) AMP INH SCH ×2 (10:18→20:06)
--- NOTE | 2018-08-31 10:24 | Progress Note-Hospitalist ---
Subjective HPI/CC On Admission Date Seen by Provider: Aug 31, 2018 Time Seen by Provider: 09:30 Chief complaint" Dyspnea with wheezing. HPI: This is a 48yoWM mentally challenged, who knows Dr. Kincaid as an outpatient who lives in a [place] [facility] that was sent to the ER with exacerbation of asthma. His drafting instructor is at the bedside. Pt refuses an exam from me and he does have a great deal of behaviors so I have restarted all his home medications to minimize that. We will continue IV steroids and discharge back to the [place] [facility] [place] tomorrow. Subjective/Events-last exam Pt allows me to examine his lungs but he is in a a coughing fit. Wheezing noted. Pulmicort twice daily ordered by Dr. Kincaid. Not ready for discharge yet due to mental retardation causing a significant delay in recovery. Compliant with medication from caretakers. Review of Systems Pulmonary: Cough Focused Exam Lactate Level 08/29/18 12:57: Lactic Acid Level 1.37 Objective Exam Vital Signs Vital Signs Date Time Temp Pulse Resp B/P (MAP) Pulse Ox O2 Delivery O2 Flow Rate FiO2 08/31/18 20:11 Room Air 08/31/18 20:01 93 08/31/18 16:30 98.6 86 20 117/57 (77) 3.00 08/29/18 20:20 32 Capillary Refill : Less Than 3 Seconds General Appearance: No Apparent Distress, Other (refuses to allow me to examine him) Respiratory: Crackles, Decreased Breath Sounds, Wheezing Cardiovascular: Regular Rate, Rhythm Results/Procedures Lab Patient resulted labs reviewed. Assessment/Plan Assessment and Plan Assess & Plan/Chief Complaint Assessment: AE asthma Wheezing MR Seizure d/o Plan: Home meds Pulmicort Nebs Diagnosis/Problems Diagnosis/Problems (1) Asthma Status: Chronic Qualifiers: Asthma severity: moderate Asthma persistence: persistent Asthma complication type: with status asthmaticus Qualified Codes: J45.42 - Moderate persistent asthma with status asthmaticus (2) Mentally challenged Status: Chronic (3) Seizure disorder Status: Chronic Clinical Quality Measures DVT/VTE Risk/Contraindication: Risk Factor Score Per Nursin RFS Level Per Nursing on Admit: 2=Moderate MARCY HERRERA DO Aug 31, 2018 10:24
[2018-08-31 12:00] VITALS: BP 133/76
[2018-08-31 16:30] VITALS: BP 117/57
[2018-08-31 20:00] VITALS: BP 98/54
[2018-08-31] MEDS: MONTELUKAST CHEW 5 MG (SINGULAIR) TAB PO SCH (21:12)
[2018-09-01 00:55] VITALS: BP 116/72
[2018-09-01] MEDS: RT-ALBUTEROL SULF 2.5 MG/3 ML PRE-MIX VIAL INH SCH ×4 (03:11→15:33)
[2018-09-01 04:55] VITALS: BP 117/81
[2018-09-01] MEDS: guaiFENesin/DM (ROBITUSSIN DM) 10 ML UDC PO PRN (04:57)
[2018-09-01] MEDS: KCL 20 MEQ POWDER FOR ORAL SOLUTION PO SCH ×2 (06:09→11:31)
[2018-09-01] MEDS: PHENYTOIN ORAL SUSPENSION 125 MG/5 ML UDC PO SCH ×2 (06:11→14:29)
[2018-09-01] MEDS: CATHETER FLUSH 10 ML SYR IV SCH ×2 (06:11→14:30)
[2018-09-01] MEDS ORDERED: predniSONE 20 MG TAB PO SCH (07:00)
--- NOTE | 2018-09-01 07:52 | Pulmonary Progress Note ---
Sepsis Event Evaluation Height, Weight, BMI Height: 5'1.00" Weight: 189lbs. 2.0oz. 85.683812yp; 33.1 BMI Method:Stated Focused Exam Lactate Level 08/29/18 12:57: Lactic Acid Level 1.37 Exam Exam Vital Signs Date Time Temp Pulse Resp B/P (MAP) Pulse Ox O2 Delivery O2 Flow Rate FiO2 09/01/18 04:55 97.4 87 24 117/81 (93) 94 Room Air 09/01/18 03:11 89 Room Air 09/01/18 00:55 98.3 90 20 116/72 (87) 92 Room Air 08/31/18 20:11 Room Air 08/31/18 20:06 Room Air 08/31/18 20:01 93 Room Air 08/31/18 20:00 Nasal Cannula 3.00 08/31/18 20:00 97.9 77 22 98/54 (69) 93 Nasal Cannula 3.00 08/31/18 16:30 98.6 86 20 117/57 (77) 91 Nasal Cannula 3.00 08/31/18 16:11 92 Room Air 08/31/18 12:00 99.0 85 22 133/76 (95) 92 Room Air 08/31/18 10:21 91 Nasal Cannula 3.50 08/31/18 08:00 96.8 66 20 133/75 (94) 96 Nasal Cannula 3.50 08/31/18 08:00 94 Nasal Cannula 3.00 I & O 09/01/18 07:00 Intake Total 3510 ml Output Total 25 ml Balance 3485 ml Height & Weight Height: 5'1.00" Weight: 189lbs. 2.0oz. 85.101010ew; 33.1 BMI Method:Stated General Appearance: No Apparent Distress, Other (refuses to allow me to examine him) Respiratory: Crackles, Decreased Breath Sounds, Wheezing Cardiovascular: Regular Rate, Rhythm Capillary Refill: Less Than 3 Seconds Gastrointestinal: normal bowel sounds, non tender, soft Assessment/Plan Assessment/Plan AsthmaAE -Continue SVN, steroids - Pulmicort HX of MR Hx of morbid obesity with severe KURTIS (noncompliant with CPAP therapy) MICHAEL VALVERDE DO Sep 01, 2018 07:52
[2018-09-01 08:00] VITALS: BP 123/82
[2018-09-01] MEDS: LORazepam 1 MG (ATIVAN) TAB PO SCH (08:37)
[2018-09-01] MEDS: CETIRIZINE 1 MG/ML PO SCH (08:39)
[2018-09-01] MEDS: FLUTICASONE NASAL SPRAY (FLONASE) 16 GM BTL NS SCH (08:39)
[2018-09-01] MEDS: NYSTATIN CREAM (MYCOSTATIN) 30 GM TUBE TP SCH (08:40)
[2018-09-01] MEDS ORDERED: PRED10TA22 PO (10:24)
--- NOTE | 2018-09-01 10:25 | Discharge Summary-Hospitalist ---
Diagnosis/Chief Complaint Date of Admission Aug 31, 2018 at 13:22 Date of Discharge Discharge Date: Sep 01, 2018 Admission Diagnosis Assessment: AE Asthma Mental retardation Behavior problems Plan: IV steroids O2 Nebs Discharge Diagnosis (1) Asthma Status: Chronic (2) Mentally challenged Status: Chronic (3) Seizure disorder Status: Chronic Discharge Summary Discharge Physical Exam Allergies: Uncoded Allergies: TAPE (Allergy, Unknown, 05/18/16) Vitals & I&Os Vital Signs Date Time Temp Pulse Resp B/P (MAP) Pulse Ox O2 Delivery O2 Flow Rate FiO2 09/01/18 08:07 84 Room Air 09/01/18 08:00 97.6 79 22 123/82 (96) 08/31/18 20:00 3.00 08/29/18 20:20 32 General Appearance: No Apparent Distress, WD/WN, Chronically ill Respiratory: Lungs Clear, Normal Breath Sounds Hospital Course Was the Problem List Reviewed?: Yes Hospital course: Patient had a brief hospital course but longer than expected due to difficulty getting asthma exacerbation under control. Pulmonology saw him and added Pulmicort and IV steroids and patient was continued on all of his home medications. Overall he was deemed stable for discharge lungs were clear and will complete a steroid taper at discharge with close follow-up with Dr. Kincaid. Labs (last 24 hrs) Microbiology 08/29/18 Blood Culture - Preliminary, Resulted No growth 08/29/18 Influenza Types A,B Antigen (CHRIS) - Final, Complete Patient resulted labs reviewed. Discussion & Recommendations Discharge Planning: <30 minutes discharge planning Discharge Home Medications: Active Scripts Active Prednisone 10 Mg Tab.ds.pk 10 Mg PO DAILY Take 6 tabs(60mg)daily,decrease by 1 tab(10MG)daily. Reported Tolnaftate 130 Gm Aero.powd TP UD PRN Sodium Chloride (Sodium Chloride For Inhalation) 3 Ml Vial.neb 3 Ml NEB Q1H PRN Nystatin 1 Each Powder.ea. TOP BID PRN Albuterol Sulfate 2.5 Mg/3 Ml Vial.neb 2.5 Mg NEB Q2H PRN Potassium Chloride 20 Meq Packet 20 Meq PO TID Symbicort 160-4.5 Mcg Inhaler (Budesonide/Formoterol Fumarate) 10.2 Gm Hfa.aer.ad 2 Puff IH BID Prednisone 5 Mg Tablet 5 Mg PO DAILY Nystatin 15 Gm Cream..g. TP BID Guaifenesin Dm Syrup (Guaifenesin/Dextromethorphan) 5 Ml Syrup 10 Ml PO Q6H PRN Lorazepam Intensol (Lorazepam) 2 Mg/1 Ml Oral.conc 0.25 Ml PO DAILY PRN TO BE USED PREMED FOR PROCEDURES AND DR. APPTS. Ibuprofen 100 Mg/5 Ml Oral.susp 30 Ml PO Q6H PRN Hydrocortisone (Hydrocortisone Acetate) 28 Gm Oint...g. TP BID PRN 1% Triple Antibiotic Ointment (Neomycin/Polymyxin/Bacitracin) 0.9 Gm Oint TP BID PRN Antacid Liquid (Mag Hydrox/Al Hydrox/Simeth) 355 Ml Oral.susp 15 Ml PO Q6H PRN Diphenhydramine HCl 12.5 Mg/5 Ml Liquid 10 Ml PO Q6H PRN Benadryl Itch Stopping Crm (Diphenhydramine HCl/Zinc Acet) 28.3 Gm Cream..g. TP Q8H PRN Fluticasone Propionate 16 Gm [place].susp 2 Sprays NS DAILY Brovana (Arformoterol Tartrate) 15 Mcg/2 Ml Vial.neb 15 Mcg NEB BID Budesonide 0.5 Mg/2 Ml Ampul.neb 0.5 Mg NEB BID PRN Cetirizine HCl 1 Mg/1 Ml Solution 10 Ml PO DAILY Phenytoin 125 Mg/5 Ml Oral.susp 5.6 Ml PO TID Vitamin D2 (Ergocalciferol (Vitamin D2)) 50,000 Unit Capsule 50,000 Units PO FR Montelukast Sodium 5 Mg Tab.chew 10 Mg PO HS TAKES 2 (5MG) TABLETS Albuterol Sulfate Syrup (Albuterol Sulfate) 2 Mg/5 Ml Syrup 5 Ml PO TID Instructions to patient/family Please see electronic discharge instructions given to patient. Clinical Quality Measures DVT/VTE Risk/Contraindication: Risk Factor Score Per Nursin RFS Level Per Nursing on Admit: 3=High Problem Qualifiers (1) Asthma: Asthma severity: moderate Asthma persistence: persistent Asthma complication type: with status asthmaticus Qualified Codes: J45.42 - Moderate persistent asthma with status asthmaticus MARCY HERRERA DO Sep 01, 2018 10:25
[2018-09-01 12:00] VITALS: BP 118/64
--- NOTE | 2018-09-01 12:04 | NUR ---
PT WAS EXERCISE STARTING SAT WAS 94% PT WALKED FOR 2 MIN. SAT DROPPED TO 82% PT REFUSED TO PUT OXYGEN ON AND WAS READY TO GO BACK TO HIS ROOM PT IS MENTALLY CHALLENGED. Addendum: 09/01/18 at 1205 by RAYMOND SCHMID RT Amended: Links added. Addendum: 09/01/18 at 1419 by RAYMOND SCHMID RT PATIENT WILL REQUIRE 2-3 LITERS OXYGEN WHILE EXERCISE
[2018-09-01] MEDS: RT-BUDESONIDE NEBS 0.5 MG/2ML (PULMICORT) AMP INH SCH (12:05)
[2018-09-01] MEDS: ARFORMOTEROL 15 MCG/2 ML (BROVANA) INH SOLUTIION IH SCH (12:05)
[2018-09-01 16:00] VITALS: BP 118/64
[2018-09-02] MEDS ORDERED: VITAMIN D2 50,000 UNITS (1.25 MG) CAP PO SCH (20:00)
== END 2018-09-01 16:00 | disposition home or self-care (01) | DRG 203 ==
LOC: EDUNIT# 15:01 → ER 15:03 → 4TH 16:30 → UNDOADMOB 16:30 → 4TH 17:45 → OBSVTOIN 08-31 13:22 → UNDODISIN 09-01 16:00
PROVIDERS: ADMIT Internal Medicine; ATTEND Internal Medicine
DX: J45.42 Moderate persistent asthma with status asthmaticus (principal); F79 Unspecified intellectual disabilities; G40.909 Epilepsy, unspecified, not intractable, without status epilepticus; G47.33 Obstructive sleep apnea (adult) (pediatric); E66.01 Morbid (severe) obesity due to excess calories; F41.9 Anxiety disorder, unspecified; Z91.19 Patient's noncompliance with other medical treatment and regimen; Z68.35 Body mass index [BMI] 35.0-35.9, adult
CPT/HCPCS: 36415; 36600; 71045; 80048; 80053; 82805; 83605; 83880; 85025; 85610; 85730; 87040; 87804; 94640; 94644; 94760; 94761; G0378

== ENCOUNTER → 2019-11-23 | Outpatient (CLI) | payer MEDICARE, MEDICAID ==
[~2019-11-23] MED LIST changes: +BUDE10.2 IH; +NYST1POW22 TOP; +POTA20PA28 PO; +PRED10TA22 PO
--- NOTE | 2019-11-23 14:12 | Diagnostic Imaging Report ---
PROCEDURE: US right lower extremity venous. TECHNIQUE: Multiple real-time grayscale images were obtained over the right lower extremity in various projections. Additional spectral analysis and color Doppler duplex images were also obtained. INDICATION: Right leg swelling. FINDINGS: There is no evidence of right lower extremity DVT. Right lower extremity deep venous system shows normal compressibility with normal response to augmentation and Valsalva. No fluid collection or mass is detected. IMPRESSION: No evidence of right lower extremity DVT. Dictated by: Dictated on workstation # [id number]
== END ==
LOC: RAD 13:19
PROVIDERS: ATTEND Nurse Practitioner
DX: M79.89 Other specified soft tissue disorders (principal)

== ENCOUNTER 2020-04-07 15:05 | Emergency (ER) | payer MEDICARE, MEDICAID ==
[~2020-04-07] VITALS: Ht 152.4 cm; Wt 90.7 kg
[2020-04-07 16:35] LABS: BASOPHILS % (AUTO) 1 % (0-10); EOSINOPHILS % (AUTO) 0 % (0-10); HEMATOCRIT 42 % (40-54); HEMOGLOBIN 14.1 g/dL (13.3-17.7); LYMPHOCYTES # (AUTO) 0.9 10^3/uL (1.0-4.0); LYMPHOCYTES % (AUTO) 25 % (12-44); MEAN CORPUSCULAR HEMOGLOBIN 31 pg (25-34); MEAN CORPUSCULAR HGB CONC 33 g/dL (32-36); MEAN CORPUSCULAR VOLUME 93 fL (80-99); MEAN PLATELET VOLUME 9.5 fL (9.0-12.2); MONOCYTES # (AUTO) 0.4 10^3/uL (0.0-1.0); MONOCYTES % (AUTO) 12 % (0-12); NEUTROPHILS # (AUTO) 2.3 10^3/uL (1.8-7.8); NEUTROPHILS % (AUTO) 62 % (42-75); PLATELET COUNT 68 10^3/uL (130-400); WHITE BLOOD COUNT 3.6 10^3/uL (4.3-11.0)
[2020-04-07 16:43] LABS: ALBUMIN 3.8 GM/DL (3.2-4.5); CHLORIDE 98 MMOL/L (98-107); POTASSIUM 4.7 MMOL/L (3.6-5.0)
--- NOTE | 2020-04-07 16:43 | ED Cough/URI ---
General Chief Complaint: Respiratory Problems Stated Complaint: COUGH/SOB/FEVER Nursing Triage Note: Assisted pt via ED w/c from POV to room #8 with c/o cough, fever, et SOA. Caregiver, Mildred, reports s/s began on 04/05/20. Audible breath sounds with moist cough noted. HX MR et COPD. Sepsis Screen: Possible Severe Sepsis Risk Source: caregiver Exam Limitations: physical impairment History of Present Illness Date Seen by Provider: Apr 07, 2020 Time Seen by Provider: 16:15 Initial Comments To ER by private vehicle from his home at [facility] where he resides with his caregivers due to history of developmental delays. He's been coughing since Wednesday (today is Wednesday), hasn't eaten much during that time frame and has been generally fatigued. Fevers from 99 to a maximum of 104. Timing/Duration: constant Severity/Quality: productive cough Associated Symptoms: cough Allergies and Home Medications Allergies Uncoded Allergies: TAPE (Allergy, Unknown, 05/18/16) Home Medications Albuterol Sulfate 2 Mg/5 Ml Syrup, 5 ML PO TID, (Reported) Albuterol Sulfate 2.5 Mg/3 Ml Vial.neb, 2.5 MG NEB Q2H PRN for WHEEZING, (Reported) Arformoterol Tartrate 15 Mcg/2 Ml Vial.neb, 15 MCG NEB BID, (Reported) Budesonide 0.5 Mg/2 Ml Ampul.neb, 0.5 MG NEB BID PRN for SHORTNESS OF BREATH, (Reported) Budesonide/Formoterol Fumarate 10.2 Gm Hfa.aer.ad, 2 PUFF IH BID, (Reported) Cetirizine HCl 1 Mg/1 Ml Solution, 10 ML PO DAILY, (Reported) Diphenhydramine HCl 12.5 Mg/5 Ml Liquid, 10 ML PO Q6H PRN for ITCHING, (Reported) Diphenhydramine HCl/Zinc Acet 28.3 Gm Cream..g., TP Q8H PRN for ITCHING, (Reported) Ergocalciferol (Vitamin D2) 50,000 Unit Capsule, 50,000 UNITS PO Fr, (Reported) Fluticasone Propionate 16 Gm [place].susp, 2 SPRAYS NS DAILY, (Reported) Guaifenesin/Dextromethorphan 5 Ml Syrup, 10 ML PO Q6H PRN for COUGH, (Reported) Hydrocortisone Acetate 28 Gm Oint...g., TP BID PRN for RASH, (Reported) 1% Ibuprofen 100 Mg/5 Ml Oral.susp, 30 ML PO Q6H PRN for PAIN-MILD OR TEMPATURE, (Reported) Lorazepam 2 Mg/1 Ml Oral.conc, 0.25 ML PO DAILY PRN for ANXIETY, (Reported) TO BE USED PREMED FOR PROCEDURES AND DR. EVANS. Mag Hydrox/Al Hydrox/Simeth 355 Ml Oral.susp, 15 ML PO Q6H PRN for GAS/INDIGESTION, (Reported) Montelukast Sodium 5 Mg Tab.chew, 10 MG PO HS, (Reported) TAKES 2 (5MG) TABLETS Neomycin/Polymyxin/Bacitracin 0.9 Gm Oint, TP BID PRN for CUTS, (Reported) Nystatin 15 Gm Cream..g., TP BID, (Reported) Nystatin 1 Each Powder.ea., TOP BID PRN for RASH, (Reported) Phenytoin 125 Mg/5 Ml Oral.susp, 5.6 ML PO TID, (Reported) Potassium Chloride 20 Meq Packet, 20 MEQ PO TID, (Reported) Prednisone 5 Mg Tablet, 5 MG PO DAILY, (Reported) Prednisone 10 Mg Tab.ds.pk, 10 MG PO DAILY Take 6 tabs(60mg)daily,decrease by 1 tab(10MG)daily. Prescribed by: MARCY HERRERA on 09/01/18 1024 Sodium Chloride For Inhalation 3 Ml Vial.neb, 3 ML NEB Q1H PRN for SHORTNESS OF BREATH, (Reported) Tolnaftate 130 Gm Aero.powd, TP UD PRN for ATHLETES FEET, (Reported) Patient Home Medication List Home Medication List Reviewed: Yes Review of Systems Review of Systems Constitutional: see HPI, other (ROS is obtained from caregiver as patient is nonverbal.) Past Nmbaksz-Sfymas-Bustdd Hx Patient Social History Alcohol Use: Denies Use Recreational Drug Use: No Smoking Status: Never a Smoker 2nd Hand Smoke Exposure: No Recent Foreign Travel: No Contact w/Someone Who Travel: No Recent Infectious Disease Expo: No Recent Hopitalizations: No Immunizations Up To Date Tetanus Booster (TDap): Unknown PED Vaccines UTD: No Date of Pneumonia Vaccine: Sep 15, 2014 Date of Influenza Vaccine: May 09, 2018 Seasonal Allergies Seasonal Allergies: Yes Past Medical History Surgeries: No Respiratory: Yes Asthma, COPD Currently Using CPAP: No Currently Using BIPAP: No Cardiac: No Neurological: Yes (EPILEPSY, NEUROLOGICAL IMPAIRMENT, OBSTRUCTIVE HYDROCEPHALUS) Developmental Disorder, Seizure Disorder Gastrointestinal: No Musculoskeletal: No Endocrine: No HEENT: No Cancer: No Psychosocial: Yes (Behaviors ) Anxiety Integumentary: No (O2 at hs ) Physical Exam Vital Signs - First Documented 04/07/20 16:10 Temp 37.0 Pulse 107 Resp 22 B/P (MAP) 147/80 (102) Pulse Ox 97 O2 Delivery Room Air Capillary Refill : Less Than 3 Seconds Height: 5'1.00" Weight: 189lbs. 2.0oz. 85.736612cw; 39.00 BMI Method:Stated General Appearance: WD/WN, no apparent distress, obese, other (short stature, obese. Cooperative. Collection of flu swab and coronavirus swab as well as IV start went rather well as he is easily distracted by Fish on his caregiver's cell phone.) Eyes: Bilateral Eye Normal Inspection, Bilateral Eye PERRL HEENT: PERRL/EOMI, normal ENT inspection Respiratory: no respiratory distress, no accessory muscle use, rhonchi, other (oxygen saturation 97% room air) Cardiovascular: regular rate, rhythm, no murmur Gastrointestinal: normal bowel sounds, non tender, soft Extremities: normal range of motion, non-tender Neurologic/Psychiatric: alert Skin: normal color, warm/dry He is able to get himself out of the chair and into bed. Focused Exam Lactate Level 04/07/20 16:21: Lactic Acid Level 1.21 Lactic Acid Level Laboratory Tests Test 04/07/20 16:21 Lactic Acid Level 1.21 MMOL/L (0.50-2.00) Progress/Results/Core Measures Suspected Sepsis Recent Fever Within 48 Hours: Yes Infection Criteria Present: Suspected New Infection New/Unexplained Altered Menta: No Sepsis Screen: Possible Severe Sepsis Risk SIRS Temperature: Pulse: 107 Respiratory Rate: 22 Laboratory Tests 04/07/20 16:21: White Blood Count 3.6L 04/07/20 17:04: White Blood Count 3.2L Blood Pressure 147 /80 Mean: 102 04/07/20 16:21: Lactic Acid Level 1.21 Laboratory Tests 04/07/20 16:21: Creatinine 0.91, Platelet Count 68L, Total Bilirubin 0.5 04/07/20 17:04: Platelet Count 57L Results/Orders Lab Results Laboratory Tests Test 04/07/20 16:21 04/07/20 17:04 04/07/20 17:30 Range/Units White Blood Count 3.6 L 3.2 L 4.3-11.0 10^3/uL Red Blood Count 4.55 4.01 L 4.30-5.52 10^6/uL Hemoglobin 14.1 12.5 L 13.3-17.7 g/dL Hematocrit 42 37 L 40-54 % Mean Corpuscular Volume 93 93 80-99 fL Mean Corpuscular Hemoglobin 31 31 25-34 pg Mean Corpuscular Hemoglobin Concent 33 34 32-36 g/dL Red Cell Distribution Width 12.4 12.5 10.0-14.5 % Platelet Count 68 L 57 L 130-400 10^3/uL Mean Platelet Volume 9.5 10.1 9.0-12.2 fL Immature Granulocyte % (Auto) 1 % Neutrophils (%) (Auto) 62 42-75 % Lymphocytes (%) (Auto) 25 12-44 % Monocytes (%) (Auto) 12 0-12 % Eosinophils (%) (Auto) 0 0-10 % Basophils (%) (Auto) 1 0-10 % Neutrophils # (Auto) 2.3 1.8-7.8 10^3/uL Lymphocytes # (Auto) 0.9 L 1.0-4.0 10^3/uL Monocytes # (Auto) 0.4 0.0-1.0 10^3/uL Eosinophils # (Auto) 0.0 0.0-0.3 10^3/uL Basophils # (Auto) 0.0 0.0-0.1 10^3/uL Immature Granulocyte # (Auto) 0.0 0.0-0.1 10^3/uL Sodium Level 136 135-145 MMOL/L Potassium Level 4.7 3.6-5.0 MMOL/L Chloride Level 98 98-107 MMOL/L Carbon Dioxide Level 26 21-32 MMOL/L Anion Gap 12 5-14 MMOL/L Blood Urea Nitrogen 12 7-18 MG/DL Creatinine 0.91 0.60-1.30 MG/DL Estimat Glomerular Filtration Rate > 60 BUN/Creatinine Ratio 13 Glucose Level 102 70-105 MG/DL Lactic Acid Level 1.21 0.50-2.00 MMOL/L Calcium Level 8.4 L 8.5-10.1 MG/DL Corrected Calcium 8.6 8.5-10.1 MG/DL Total Bilirubin 0.5 0.1-1.0 MG/DL Aspartate Amino Transf (AST/SGOT) 54 H 5-34 U/L Alanine Aminotransferase (ALT/SGPT) 64 H 0-55 U/L Alkaline Phosphatase 118 40-136 U/L C-Reactive Protein High Sensitivity 15.70 H 0.00-0.50 MG/DL Total Protein 7.5 6.4-8.2 GM/DL Albumin 3.8 3.2-4.5 GM/DL Coronavirus 2019 (TAVO) Negative Negative Smear Scan YES My Orders Orders - MITCH STEVENS APRN Cbc With Automated Diff (04/07/20 15:56) Hs C Reactive Protein (04/07/20 15:56) Comprehensive Metabolic Panel (04/07/20 15:56) Ua Culture If Indicated (04/07/20 15:56) Chest 1 View, Ap/Pa Only (04/07/20 15:56) Ed Iv/Invasive Line Start (04/07/20 15:56) Influenza A And B Antigens (04/07/20 15:56) Covid 19 Inhouse Test (04/07/20 15:56) Coronavirus Sars-Cov-2 So 2018 (04/07/20 15:56) Lactic Acid Analyzer (04/07/20 15:56) Blood Culture (04/07/20 15:56) Lactated Ringers (Lr 1000 Ml Iv Solution (04/07/20 16:45) Cbc No Diff (04/07/20 16:59) Ceftriaxone For Im Use (Rocephin For Im (04/07/20 17:15) Azithromycin Tablet (Zithromax Tablet) (04/07/20 17:15) Lidocaine 1% Inj 20 Ml (Xylocaine 1% Inj (04/07/20 17:15) BNP (04/07/20 17:28) Ceftriaxone For Iv Use (Rocephin For I (04/07/20 17:30) Vital Signs/I&O 04/07/20 16:10 Temp 37.0 Pulse 107 Resp 22 B/P (MAP) 147/80 (102) Pulse Ox 97 O2 Delivery Room Air Capillary Refill : Less Than 3 Seconds Blood Pressure Mean: 102 Departure Impression Primary Impression: Acute bronchitis Qualified Codes: J20.9 - Acute bronchitis, unspecified Disposition: HOME, SELF-CARE Condition: Stable Departure-Patient Inst. Decision time for Depature: 18:01 Referrals: NICOLETTE NAPIER MD (PCP) Primary Care Physician ADAMA MAI (Family) Primary Care Physician Patient Instructions: Acute Bronchitis Add. Discharge Instructions: . Follow-up with his doctor later this week. Use the antibiotics as directed. Return to ER for any worsening. Keep him quarantined until the coronavirus send out swab comes back tomorrow. All discharge instructions reviewed with patient and/or family. Voiced understanding. Scripts Cefuroxime Axetil (Cefuroxime) 500 Mg Tablet 500 MG PO BID, #10 TAB Prov: MITCH STEVENS APRN 04/07/20 MITCH STEVENS APRN Apr 07, 2020 16:43
[2020-04-07 16:44] LABS: SMEAR SCAN COMMENT YES; SODIUM 136 MMOL/L (135-145)
[2020-04-07 16:45] LABS: CALCIUM 8.4 MG/DL (8.5-10.1)
[2020-04-07] MEDS ORDERED: LACTATED RINGERS 1,000 ML IV SCH (16:45)
[2020-04-07 16:46] LABS: GLUCOSE 102 MG/DL (70-105); TOTAL PROTEIN 7.5 GM/DL (6.4-8.2)
[2020-04-07 16:47] LABS: CARBON DIOXIDE 26 MMOL/L (21-32)
[2020-04-07 16:48] LABS: BILIRUBIN,TOTAL 0.5 MG/DL (0.1-1.0)
[2020-04-07 16:49] LABS: ALKALINE PHOSPHATASE 118 U/L (40-136)
[2020-04-07 16:50] LABS: CREATININE SERUM 0.91 MG/DL (0.60-1.30); GFR ESTIMATED > 60
[2020-04-07 16:51] LABS: BUN/CREATININE RATIO 13
[2020-04-07 16:52] LABS: ALANINE AMINOTRANSFERASE 64 U/L (0-55)
--- NOTE | 2020-04-07 17:05 | Diagnostic Imaging Report ---
INDICATION: Cough. EXAMINATION: Single view chest, 04/07/2020. COMPARISON: 08/30/2018. FINDINGS: Heart is stable. Pulmonary vasculature is slightly congested. The lungs are clear. No infiltrate, effusion or pneumothorax. IMPRESSION: Pulmonary vascular congestion. Dictated on workstation # [id number]
[2020-04-07 17:09] LABS: HEMOGLOBIN 12.5 g/dL (13.3-17.7); MEAN PLATELET VOLUME 10.1 fL (9.0-12.2); WHITE BLOOD COUNT 3.2 10^3/uL (4.3-11.0)
[2020-04-07] MEDS ORDERED: LIDOCAINE 1% INJ 20 ML 20 ML VIAL INJ ONE (17:15)
[2020-04-07] MEDS ORDERED: AZITHROMYCIN 250 MG TAB (ZITHROMAX) PO SCH (17:15)
[2020-04-07] MEDS ORDERED: cefTRIAXone 1,000 MG/2.86 ml vial (IM ONLY) IM SCH (17:15)
[2020-04-07] MEDS ORDERED: cefTRIAXone FOR IV USE 1,000 MG in WATER (STERILE) FOR INJECTION 10 ML IV ONE (17:30)
[2020-04-07] MEDS ORDERED: CEFU500T63 PO (18:11)
[2020-04-07] MEDS ORDERED: IBUPROFEN 800 MG (MOTRIN) TAB PO ONE (18:30)
[2020-04-07 18:31] VITALS: BP 119/77
== END 2020-04-07 18:31 | disposition home or self-care (01) ==
LOC: EDUNIT# 15:05 → ER 15:06
DX: J20.9 Acute bronchitis, unspecified (principal); E66.9 Obesity, unspecified; G40.909 Epilepsy, unspecified, not intractable, without status epilepticus; J44.9 Chronic obstructive pulmonary disease, unspecified; F41.9 Anxiety disorder, unspecified; Z20.828 Contact with and (suspected) exposure to other viral communicable diseases; Z68.39 Body mass index [BMI] 39.0-39.9, adult; Z79.52 Long term (current) use of systemic steroids
CPT/HCPCS: 71045; 80053; 83605; 83880; 85025; 85027; 86141; 87040; 87804; 99284; U0002; 36415; 87635

== ENCOUNTER 2022-03-06 12:34 | Emergency (ER) | payer MEDICARE, MEDICAID ==
[~2022-03-06] VITALS: Ht 169 cm; Wt 90.7 kg
[~2022-03-06 12:34] MED LIST changes: +CEFU500T63 PO; +CLIN-144 PO; -CLIN300C11 PO; +DIPH-1017 PO; -DIPH-124 PO; +IBUP-2558 PO; -IBUP100O28 PO; -MONT5TAB16 PO; +MONT5TAB25 PO; -NYST15CR TP; +NYST15CR35 TP; +POTA-179 PO; -POTA20TA15 PO
--- NOTE | 2022-03-06 13:20 | ED Respiratory ---
General Chief Complaint: Respiratory Problems Stated Complaint: RESP ISSUES Nursing Triage Note: PT TO [facility] FROM [facility] WITH CC OF SOB, HX OF COPD, PT WAS AMBULATING WITH A WALKER TODAY AND HIS LEGS STARTED SHAKING, O2 SAT WAS 80% BY STAFF. PT 98% ON 2 LPM NC ON ARRIVAL, O2 SHUT OFF TO GET A ROOM AIR READING, 94% ON RA. PT WAS EVALUATED FOR LEG WEAKNESS THE LAST 2 WEEKS, HAD RAD AND LABS DONE WITH SLIGHT ARTHRITIS NOTED IN KNEES. PT STATED NO WHEN ASKED OF PAIN. Source: caregiver Exam Limitations: clinical condition History of Present Illness Date Seen by Provider: Mar 06, 2022 Time Seen by Provider: 13:00 Initial Comments Patient is a 51-year-old male who presents from a fdc with his caregiver, history of intellectual disability/seizure disorder who presents with approximately 2 weeks of generalized weakness, loss of appetite, malaise. He reportedly today became weak/shaky while walking and was assisted to the floor, had to crawl to his room. When the medical attendants checked his vital signs his room air oxygen saturation was 82%. He does wear oxygen at home at night. Vomiting yesterday. No problems with bowel or bladder otherwise. No head trauma reported. No loss of consciousness. He has been taking his medications. Did see his primary care provider a couple of weeks ago and had some labs done as well as x-rays of his lower legs. On my initial evaluation, he is awake and alert, will nod yes and no seemingly appropriately but I am not sure if this is accurate. He is not verbal. Compliant with my exam. Room air oxygen saturations 94 to 96% with no evidence of increased work of breathing. Review of systems unobtainable from the patient secondary to his intellectual disability Timing/Duration: other (1 to 2 weeks) Severity: moderate Associated Symptoms: other (Weakness) Allergies and Home Medications Allergies Uncoded Allergies: TAPE (Allergy, Unknown, 05/18/16) Patient Home Medication List Home Medication List Reviewed: Yes Albuterol Sulfate (Albuterol Sulfate Syrup) 2 Mg/5 Ml Syrup, 5 ML PO TID, (Reported) Entered as Reported by: KIMBER HERRERA on 05/06/18 0933 Albuterol Sulfate (Albuterol Sulfate) 2.5 Mg/3 Ml Vial.neb, 2.5 MG NEB Q2H PRN for WHEEZING, (Reported) Entered as Reported by: KIMBER HERRERA on 08/31/18 0905 Arformoterol Tartrate (Brovana) 15 Mcg/2 Ml Vial.neb, 15 MCG NEB BID, (Reported) Entered as Reported by: KIMBER HERRERA on 05/06/18 09 Budesonide (Budesonide) 0.5 Mg/2 Ml Ampul.neb, 0.5 MG NEB BID PRN for SHORTNESS OF BREATH, (Reported) Entered as Reported by: KIMBER HERRERA on 05/06/18 09 Budesonide/Formoterol Fumarate (Symbicort 160-4.5 Mcg Inhaler) 10.2 Gm Hfa.aer.ad, 2 PUFF IH BID, (Reported) Entered as Reported by: FABIAN PATINO on 08/29/18 185 Cefuroxime Axetil (Cefuroxime) 500 Mg Tablet, 500 MG PO BID Prescribed by: MITCH STEVENS on 04/07/20 181 Cetirizine HCl (Cetirizine HCl) 1 Mg/1 Ml Solution, 10 ML PO DAILY, (Reported) Entered as Reported by: KIMBER HERRERA on 05/06/18 09 Diphenhydramine HCl (Diphenhydramine HCl) 12.5 Mg/5 Ml Liquid, 10 ML PO Q6H PRN for ITCHING, (Reported) Entered as Reported by: KIMBER HERRERA on 05/06/18 09 Diphenhydramine HCl/Zinc Acet (Benadryl Itch Stopping Crm) 28.3 Gm Cream..g., TP Q8H PRN for ITCHING, (Reported) Entered as Reported by: KIMBER HERRERA on 05/06/18 09 Ergocalciferol (Vitamin D2) (Vitamin D2) 50,000 Unit Capsule, 50,000 UNITS PO Fr, (Reported) Entered as Reported by: KIMBER HERRERA on 05/06/18 09 Fluticasone Propionate (Fluticasone Propionate) 16 Gm [place].susp, 2 SPRAYS NS DAILY, (Reported) Entered as Reported by: KIMBER HERRERA on 05/06/18 0946 Guaifenesin/Dextromethorphan (Guaifenesin Dm Syrup) 5 Ml Syrup, 10 ML PO Q6H PRN for COUGH, (Reported) Entered as Reported by: KIMBER HERRERA on 05/06/18956 Hydrocortisone Acetate (Hydrocortisone) 28 Gm Oint...g., TP BID PRN for RASH, (Reported) Entered as Reported by: KIMBER HERRERA on 05/06/18956 Ibuprofen (Ibuprofen) 100 Mg/5 Ml Oral.susp, 30 ML PO Q6H PRN for PAIN-MILD OR TEMPATURE, (Reported) Entered as Reported by: KIMBER HERRERA on 05/06/18956 Lorazepam (Lorazepam Intensol) 2 Mg/1 Ml Oral.conc, 0.25 ML PO DAILY PRN for ANXIETY, (Reported) Entered as Reported by: KIMBER HERRERA on 05/06/18956 Mag Hydrox/Al Hydrox/Simeth (Antacid Liquid) 355 Ml Oral.susp, 15 ML PO Q6H PRN for GAS/INDIGESTION, (Reported) Entered as Reported by: KIMBER HERRERA on 05/06/18956 Montelukast Sodium (Montelukast Sodium) 5 Mg Tab.chew, 10 MG PO HS, (Reported) Entered as Reported by: KIMBER HERRERA on 05/06/18932 Neomycin/Polymyxin/Bacitracin (Triple Antibiotic Ointment) 0.9 Gm Oint, TP BID PRN for CUTS, (Reported) Entered as Reported by: KIMBER HERRERA on 05/06/18956 Nystatin (Nystatin) 15 Gm Cream..g., TP BID, (Reported) Entered as Reported by: KIMBER HERRERA on 05/06/18956 Nystatin (Nystatin) 1 Each Powder.ea., TOP BID PRN for RASH, (Reported) Entered as Reported by: KIMBER HERRERA on 08/31/18904 Phenytoin (Phenytoin) 125 Mg/5 Ml Oral.susp, 5.6 ML PO TID, (Reported) Entered as Reported by: KIMBER HERRERA on 05/06/18932 Potassium Chloride (Potassium Chloride) 20 Meq Packet, 20 MEQ PO TID, (Reported) Entered as Reported by: KIMBER HERRERA on 08/31/18 09 Prednisone (Prednisone) 5 Mg Tablet, 5 MG PO DAILY, (Reported) Entered as Reported by: FABIAN PATINO on 08/29/18 1851 Prednisone (Prednisone) 10 Mg Tab.ds.pk, 10 MG PO DAILY Prescribed by: MARCY HERRERA on 09/01/18 1024 Sodium Chloride For Inhalation (Sodium Chloride) 3 Ml Vial.neb, 3 ML NEB Q1H PRN for SHORTNESS OF BREATH, (Reported) Entered as Reported by: KIMBER HERRERA on 08/31/18 09 Tolnaftate (Tolnaftate) 130 Gm Aero.powd, TP UD PRN for ATHLETES FEET, (Reported) Entered as Reported by: KIMBER HERRERA on 08/31/18904 Review of Systems Review of Systems Constitutional: see HPI Respiratory: other (Low oxygen saturation) Gastrointestinal: vomiting Unobtainable from the patient due to intellectual disability majority of review of systems and HPI from the caregiver and his "book" Past Ahwcsyp-Cglucu-Unwusw Hx Patient Social History Tobacco Use?: No Substance use?: No Alcohol Use?: No Immunizations Up To Date Tetanus Booster (TDap): Unknown PED Vaccines UTD: No First/Initial COVID19 Vaccinat: 01/20/21 Second COVID19 Vaccination Asher: 02/12/21 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: [employer] Seasonal Allergies Seasonal Allergies: Yes Past Medical History Surgery/Hospitalization HX: COPD, SEIZURE DISORDER, ASTHMA, UNSPECIFIED IDD, OBSTRUCTIVE HYPOCEPHALUS, EPILEPSY Surgeries: No Respiratory: Yes Asthma, COPD Currently Using CPAP: No Currently Using BIPAP: No Cardiac: No Neurological: Yes (EPILEPSY, NEUROLOGICAL IMPAIRMENT, OBSTRUCTIVE HYDROCEP HALUS) Developmental Disorder, Seizure Disorder Gastrointestinal: No Musculoskeletal: No Endocrine: No HEENT: No Cancer: No Psychosocial: Yes (Behaviors ) Anxiety Integumentary: No (O2 at hs ) Physical Exam Vital Signs - First Documented 03/06/22 12:41 Temp 36.2 Pulse 83 Resp 16 B/P (MAP) 125/79 (94) Pulse Ox 94 O2 Delivery Room Air Capillary Refill : Less Than 3 Seconds Height: 5'1.00" Weight: 189lbs. 2.0oz. 85.853746mw; 31.00 BMI Method:Stated General Appearance: WD/WN, no apparent distress Eyes: Bilateral Eye Normal Inspection, Bilateral Eye PERRL, Bilateral Eye EOMI HEENT: PERRL/EOMI, other (Slightly dry oral mucosa) Neck: normal inspection Respiratory: lungs clear, normal breath sounds, no respiratory distress, no accessory muscle use Cardiovascular: regular rate, rhythm Gastrointestinal: normal bowel sounds, non tender, soft Extremities: normal range of motion, normal inspection, other (Trace edema bilateral lower extremities; moves each LE independently) Neurologic/Psychiatric: alert, normal mood/affect Skin: normal color, warm/dry, other (No rashes) Progress/Results/Core Measures Suspected Sepsis SIRS Temperature: Pulse: 83 Respiratory Rate: 16 Laboratory Tests 03/06/22 13:30: White Blood Count 5.4 Blood Pressure 125 /79 Mean: 94 Laboratory Tests 03/06/22 13:30: Creatinine 0.95, Platelet Count 155, Total Bilirubin 0.3 Results/Orders Lab Results Laboratory Tests Test 03/06/22 13:20 03/06/22 13:30 03/06/22 14:27 Range/Units Influenza Type A (RT-PCR) Not Detected Not Detecte Influenza Type B (RT-PCR) Not Detected Not Detecte SARS-CoV-2 RNA (RT-PCR) Not Detected Not Detecte White Blood Count 5.4 4.3-11.0 10^3/uL Red Blood Count 4.29 L 4.30-5.52 10^6/uL Hemoglobin 13.3 13.3-17.7 g/dL Hematocrit 39 L 40-54 % Mean Corpuscular Volume 92 80-99 fL Mean Corpuscular Hemoglobin 31 25-34 pg Mean Corpuscular Hemoglobin Concent 34 32-36 g/dL Red Cell Distribution Width 12.5 10.0-14.5 % Platelet Count 155 130-400 10^3/uL Mean Platelet Volume 9.4 9.0-12.2 fL Immature Granulocyte % (Auto) 0 % Neutrophils (%) (Auto) 77 H 42-75 % Lymphocytes (%) (Auto) 13 12-44 % Monocytes (%) (Auto) 7 0-12 % Eosinophils (%) (Auto) 3 0-10 % Basophils (%) (Auto) 1 0-10 % Neutrophils # (Auto) 4.2 1.8-7.8 10^3/uL Lymphocytes # (Auto) 0.7 L 1.0-4.0 10^3/uL Monocytes # (Auto) 0.4 0.0-1.0 10^3/uL Eosinophils # (Auto) 0.2 0.0-0.3 10^3/uL Basophils # (Auto) 0.0 0.0-0.1 10^3/uL Immature Granulocyte # (Auto) 0.0 0.0-0.1 10^3/uL Sodium Level 142 135-145 MMOL/L Potassium Level 4.7 3.6-5.0 MMOL/L Chloride Level 101 98-107 MMOL/L Carbon Dioxide Level 31 21-32 MMOL/L Anion Gap 10 5-14 MMOL/L Blood Urea Nitrogen 17 7-18 MG/DL Creatinine 0.95 0.60-1.30 MG/DL Estimat Glomerular Filtration Rate 97 BUN/Creatinine Ratio 18 Glucose Level 102 70-105 MG/DL Calcium Level 8.8 8.5-10.1 MG/DL Corrected Calcium 8.6 8.5-10.1 MG/DL Total Bilirubin 0.3 0.1-1.0 MG/DL Aspartate Amino Transf (AST/SGOT) 26 5-34 U/L Alanine Aminotransferase (ALT/SGPT) 27 0-55 U/L Alkaline Phosphatase 77 40-136 U/L Total Protein 7.0 6.4-8.2 GM/DL Albumin 4.2 3.2-4.5 GM/DL Phenytoin (Dilantin) Level 28.8 *H 10.0-20.0 ug/mL Urine Color YELLOW Urine Clarity CLEAR Urine pH 7.5 5-9 Urine Specific [place] 1.015 L 1.016-1.022 Urine Protein NEGATIVE NEGATIVE Urine Glucose (UA) NEGATIVE NEGATIVE Urine Ketones NEGATIVE NEGATIVE Urine Nitrite NEGATIVE NEGATIVE Urine Bilirubin NEGATIVE NEGATIVE Urine Urobilinogen 0.2 < = 1.0 MG/DL Urine Leukocyte Esterase NEGATIVE NEGATIVE Urine RBC (Auto) NEGATIVE NEGATIVE Urine RBC RARE /HPF Urine WBC NONE /HPF Urine Squamous Epithelial Cells RARE /HPF Urine Crystals NONE /LPF Urine Bacteria NEGATIVE /HPF Urine Casts NONE /LPF Urine Mucus NEGATIVE /LPF Urine Culture Indicated NO My Orders Orders - FABIAN RALPH MD Ed Iv/Invasive Line Start (03/06/22 13:13) Cbc With Automated Diff (03/06/22 13:13) Comprehensive Metabolic Panel (03/06/22 13:13) Ua Culture If Indicated (03/06/22 13:13) Covid 19 Inhouse Test (03/06/22 13:13) Chest 1 View, Ap/Pa Only (03/06/22 13:13) Influenza A And B By Pcr (03/06/22 13:13) Isolation Central Supply Req (03/06/22 13:13) Dilantin (Phenytoin) (03/06/22 13:13) Vital Signs/I&O 03/06/22 03/06/22 12:41 15:29 Temp 36.2 Pulse 83 78 Resp 16 B/P (MAP) 125/79 (94) 99/68 Pulse Ox 94 97 O2 Delivery Room Air Capillary Refill : Less Than 3 Seconds Blood Pressure Mean: 94 Progress Note : Time: 15:14 Progress Note Patient reassessed after labs and chest x-ray. He looks well, he is smiling and interactive. He is able to sit up in the bed and flex and extend his legs. He does not appear to have any lower extremity numbness. His care provider is concerned about progressive leg weakness and the fall today. I recommended follow-up with his nurse practitioner, Lyssa Mai. I recommended that they consider doing some imaging of his lumbar spine for possible radicular findings. He is not able to, as a result of his intellectual disability convey any complaints related to radiculopathy/back pain/weakness. I have advised her to continue his current medications. Return precautions provided. All questions are sought and answered. Diagnostic Imaging Diagonstic Imaging: Xray Plain Films/CT/US/NM/MRI: chest Comments [facility] [place], [place] NAME: YA [facility]OMLINSON [facility] REC#: [id number] PT STATUS: REG ER : 1970 PHYSICIAN: FABIAN RALPH MD ADMIT DATE: 03/06/22/ER Draft Date of Exam:03/06/22 CHEST 1 VIEW, AP/PA ONLY INDICATION: Low O2 saturation. EXAMINATION: Single-view chest from 03/06/2022. COMPARISON: 04/07/2020. FINDINGS: The cardiomediastinal silhouette is unremarkable. The pulmonary vasculature is within normal limits. The lungs and pleural spaces are clear. IMPRESSION: No evidence of an acute cardiopulmonary process. Dictated on workstation # [id number] Dict: 03/06/22 1334 Trans: 03/06/22 1337 [id number] Interpreted by: JAMEEL PETERSEN MD Electronically signed by: Departure Impression Primary Impression: Fall Qualified Codes: W19.XXXA - Unspecified fall, initial encounter Disposition: HOME, SELF-CARE Condition: Improved Departure-Patient Inst. Decision time for Depature: 15:16 Referrals: NICOLETTE NAPIER MD (PCP) Primary Care Physician ADAMA MAI (Family) Primary Care Physician Patient Instructions: Preventing Falls ED Add. Discharge Instructions: Monitor for worsening weakness and fall potential. Please call Lyssa Mai' office for a follow up next week - consider imaging of his low back/ Lumba Spine CT or MRI for nerve compression, disc disease causing leg weakness. If he develops a fever, vomiting, shortness of breath, please bring him back to the Emergency Department for re-evaluation. Continue his current medications as prescribed. FABIAN RALPH MD Mar 06, 2022 13:20
--- NOTE | 2022-03-06 13:38 | Diagnostic Imaging Report ---
INDICATION: Low O2 saturation. EXAMINATION: Single-view chest from 03/06/2022. COMPARISON: 04/07/2020. FINDINGS: The cardiomediastinal silhouette is unremarkable. The pulmonary vasculature is within normal limits. The lungs and pleural spaces are clear. IMPRESSION: No evidence of an acute cardiopulmonary process. Dictated by: Dictated on workstation # [id number]
[2022-03-06 13:41] LABS: BASOPHILS % (AUTO) 1 % (0-10); EOSINOPHILS # (AUTO) 0.2 10^3/uL (0.0-0.3); EOSINOPHILS % (AUTO) 3 % (0-10); HEMATOCRIT 39 % (40-54); HEMOGLOBIN 13.3 g/dL (13.3-17.7); LYMPHOCYTES # (AUTO) 0.7 10^3/uL (1.0-4.0); LYMPHOCYTES % (AUTO) 13 % (12-44); MEAN CORPUSCULAR HEMOGLOBIN 31 pg (25-34); MEAN CORPUSCULAR HGB CONC 34 g/dL (32-36); MEAN CORPUSCULAR VOLUME 92 fL (80-99); MEAN PLATELET VOLUME 9.4 fL (9.0-12.2); MONOCYTES # (AUTO) 0.4 10^3/uL (0.0-1.0); MONOCYTES % (AUTO) 7 % (0-12); NEUTROPHILS # (AUTO) 4.2 10^3/uL (1.8-7.8); NEUTROPHILS % (AUTO) 77 % (42-75); PLATELET COUNT 155 10^3/uL (130-400); WHITE BLOOD COUNT 5.4 10^3/uL (4.3-11.0)
[2022-03-06 13:50] LABS: ALBUMIN 4.2 GM/DL (3.2-4.5)
[2022-03-06 13:51] LABS: POTASSIUM 4.7 MMOL/L (3.6-5.0)
[2022-03-06 13:52] LABS: CALCIUM 8.8 MG/DL (8.5-10.1)
[2022-03-06 13:55] LABS: BILIRUBIN,TOTAL 0.3 MG/DL (0.1-1.0)
[2022-03-06 13:57] LABS: CREATININE SERUM 0.95 MG/DL (0.60-1.30)
[2022-03-06 14:34] LABS: BILIRUBIN,URINE NEGATIVE (NEGATIVE); CLARITY,URINE CLEAR; COLOR,URINE YELLOW; GLUCOSE, URINE (UA) NEGATIVE (NEGATIVE); KETONES,URINE NEGATIVE (NEGATIVE); LEUKOCYTE ESTERASE ,URINE NEGATIVE (NEGATIVE); NITRITE,URINE NEGATIVE (NEGATIVE); PH,URINE 7.5 (5-9); PROTEIN,URINE NEGATIVE (NEGATIVE)
[2022-03-06 14:41] LABS: BACTERIA,URINE NEGATIVE /HPF; RBC,URINE RARE /HPF; SQUAMOUS EPITHELIAL CELL,UR RARE /HPF
[2022-03-06 15:29] VITALS: BP 99/68
== END 2022-03-06 15:32 | disposition home or self-care (01) ==
LOC: EDUNIT# 12:34 → ER 12:36
DX: R60.0 Localized edema (principal); Z20.822 Contact with and (suspected) exposure to COVID-19; W19.XXXA Unspecified fall, initial encounter
CPT/HCPCS: 36415; 71045; 80053; 80185; 81000; 85025; 87636

== ENCOUNTER 2022-12-15 05:29 | Outpatient (CLI) | payer MEDICARE, MEDICAID ==
[~2022-12-15] VITALS: Ht 170.2 cm; Wt 90.0 kg
[~2022-12-15 05:29] MED LIST changes: +ALBU8.5H6 IH; -RT-ALBUINH IH
[2022-12-15] MEDS ORDERED: MELO7.5T46 PO (09:50)
[2022-12-15] MEDS ORDERED: CLOB20TA15 PO (09:50)
== END 2022-12-15 10:38 ==
LOC: PREOP 05:29
PROVIDERS: ATTEND Dentist General Practice
DX: Z01.818 Encounter for other preprocedural examination (principal)

== ENCOUNTER 2023-03-29 11:12 | Outpatient (CLI) | payer MEDICARE, MEDICAID ==
[~2023-03-29] VITALS: Ht 170.2 cm; Wt 90.9 kg
[~2023-03-29 11:12] MED LIST changes: +CLOB20TA15 PO; +MELO7.5T46 PO
[2023-03-29] MEDS ORDERED: DULO60CA59 PO (14:03)
[2023-03-29] MEDS ORDERED: PHEN100C11 PO (14:07)
== END 2023-03-29 14:23 | disposition home or self-care (01) ==
LOC: PREOP 11:12
PROVIDERS: ATTEND Dentist General Practice
DX: Z01.818 Encounter for other preprocedural examination (principal)